=== PATIENT | female | born 1975 | race Two or more races ===

== ENCOUNTER 2024-09-19 12:48 | Emergency (ER) | payer BC, SELFPAY ==
[2024-09-19] VITALS (9 sets, daily range): BP systolic 150–200; BP diastolic 84–112; PULSE 62–92; RESP 16–20; TEMP 36.3–37.1; O2SAT 93–99; BMI 32.4
--- NOTE | 2024-09-19 12:55 | EKG_ITS ---
[facility] Test Date: 2024-09-19 Pat Name: GIOVANNI HERRERA Department: Room: - Gender: Female [employer] Person: : 1975 Requested By: Nils Chery Order Number: [id number] Reading MD: Nils Chery Measurements Intervals [place] Rate: 71 P: 57 AL: 149 QRS: 7 QRSD: 86 T: 46 QT: 389 QTc: 424 Interpretive Statements SINUS RHYTHM Compared to ECG 10/24/2021 08:09:13 No significant changes /store/S0/[id number].pdf
--- NOTE | 2024-09-19 13:01 | PD.EDRME ---
Rapid Medical Screening Exam RME Arrival date/time: 09/19/24 12:48 49-year-old female with a history of hyperlipidemia, hypertension was sent to the emergency room by the primary care provider for an elevated blood pressure reading while also having dizziness, palpitations, and a headache I have greeted and performed a focused initial assessment of this patient. A comprehensive ED assessment and evaluation of the patient, analysis of all test results, and completion of the medical decision making process will be conducted by additional ED providers. Chief Complaint: Dizziness Time Seen by Provider: 09/19/24 12:57 Vital signs: Vital Signs Temperature 98.6 F 09/19/24 12:56 Pulse Rate 75 09/19/24 12:56 Respiratory Rate 18 09/19/24 12:56 Blood Pressure 194/112 H 09/19/24 12:56 Pulse Oximetry (%) 96 09/19/24 12:56 Oxygen Delivery Method Room Air 09/19/24 12:56 Vital signs reviewed by provider: Yes
[2024-09-19 13:39] LABS: Basophils # (Auto) 0.1 Thou/mm3 (0.0-0.2); Basophils % (Auto) 1 % (0-2.5); Eosinophils # (Auto) 0.2 Thou/mm3 (0.0-0.5); Eosinophils % (Auto) 2 % (0-10); Hemoglobin 14.7 g/dL (12.0-16.0); Immature Granulocytes Auto 0.04 Thou/mm3 (0.00-0.00); Lymphocytes # (Auto) 2.3 Thou/mm3 (1.0-4.8); Lymphocytes % (Auto) 20 % (10-50); Mean Corpuscular Hemoglobin 30.2 pg (25.0-35.0); Monocytes # (Auto) 0.6 Thou/mm3 (0.0-0.8); Monocytes % (Auto) 5 % (0-12); Neutrophils # (Auto) 8.4 Thou/mm3 (1.8-7.7); Neutrophils % (Auto) 73 % (37-80); Nucleated Red Blood Cell # 0.00 Thou/mm3 (0.00-0.00); Nucleated Red Blood Cell % 0 /100 WBC (0); Platelet Count 295 Thou/mm3 (140-440); RDW Standard Deviation 39.0 fL (36.4-46.3); White Blood Count 11.6 Thou/mm3 (3.6-11.0)
[2024-09-19 14:18] LABS: B-Type Natriuretic Peptide 43 pg/mL (0-100); Hematocrit 39.6 % (36.0-46.0); Mean Corpuscular HGB Conc 32.8 g/dl (31.0-37.0); Mean Corpuscular Volume 78 fL (80-100); Red Blood Count 5.09 Miln/mm3 (4.00-5.20)
[2024-09-19 14:24] LABS: Alanine Aminotransferase 21 U/L (10-49); Albumin, Serum 4.6 gm/dL (3.5-5.0); Albumin/Globulin Ratio 1.6 (1.2-2.2); Alkaline Phosphatase 81 U/L (46-116); Anion Gap 23 (7-16); Aspartate Amino Transferase 31 U/L (0-34); BUN/Creatinine Ratio 15 Ratio (12-20); Bilirubin,Total 0.2 mg/dL (0.3-1.2); Blood Urea Nitrogen 12 mg/dL (9-23); Calcium 9.2 mg/dL (8.3-10.6); Calcium (Corrected) 9.2 mg/dL (8.5-10.1); Chloride 102 mMol/L (98-107); Creatinine (Component) 0.8 mg/dL (0.6-1.3); Estimated Creatinine Clearance 92.4 mL/min (>60); Globulin 2.8 gm/dL (2.3-3.5); Glucose 94 mg/dL (74-106); Osmolality,Calculated 269 (275-295); Potassium 4.2 mMol/L (3.4-5.1); Sodium 135 mMol/L (136-145); Total Protein 7.4 gm/dL (5.7-8.2); Troponin I < 0.002 ng/mL (0.0-0.045); eGFR > 60 See Note
[2024-09-19 14:25] LABS: Carbon Dioxide < 10.0 mMol/L (20.0-31.0)
[2024-09-19 15:12] LABS: Collection Type, Urine Clean Catch
[2024-09-19 15:27] LABS: Bilirubin,Urine Negative (Negative); Blood,Urine Negative (Negative); Clarity,Urine Clear (Clear/Hazy); Color,Urine Colorless (Lt Yel-Yel); Glucose, Urine Negative (Negative); Ketones,Urine Negative (Negative); Leukocyte Esterase,Urine Negative (Negative); Nitrite,Urine Negative (Negative); PH,Urine 6.5 (5.0-7.0); Protein,Urine Negative (Neg - Trace); RBC,Urine 1 /hpf (0-3); Specific Gravity,Urine 1.007 (1.001-1.035); Squamous Epithelial Cell,Urine 1 /hpf (0-5); Urobilinogen,Urine Negative mg/dL (0.0-1.0); WBC,Urine 1 /hpf (0-5)
--- NOTE | 2024-09-19 15:44 | PD.EDADULT ---
ED General RME/HPI General Chief complaint: Dizziness Stated complaint: Dr. Newman sent pt. BP 215/114 Time Seen by Provider: 09/19/24 12:57 Arrival date/time: 09/19/24 12:48 CC: Dizziness headache tingling in her fingers HPI ongoing intermittently for the past month. Patient was seen by PCP today referred to the emergency room with an elevated blood pressure. Upon initial arrival her blood pressure was 194/112. Prior to examination patient was given hydralazine at which time patient's pressure decreased to 179/94. Patient currently has a headache but is improved. And continues to have tingling in her hands. Patient denies chest pain shortness of breath ankle swelling or difficulty breathing. No other complaints at this time Limitations: no limitations RME / HPI RME / HPI narrative: 09/19/24 12:48 49-year-old female with a history of hyperlipidemia, hypertension was sent to the emergency room by the primary care provider for an elevated blood pressure reading while also having dizziness, palpitations, and a headache I have greeted and performed a focused initial assessment of this patient. A comprehensive ED assessment and evaluation of the patient, analysis of all test results, and completion of the medical decision making process will be conducted by additional ED providers. Related Data Previous Rx's ?Medication ?Instructions ?Recorded gemfibrozil 600 mg tablet 600 mg PO BID #0 tabs 12/18/19 atorvastatin 20 mg tablet 80 mg (4 x 20 mg) PO HS #30 tabs 01/13/22 carvedilol 3.125 mg tablet 3.125 mg PO BID #60 tabs 01/13/22 Allergies Allergy/AdvReac Type Severity Reaction Status Date / Time No Known Allergies Allergy Verified 09/19/24 12:51 Review of Systems Review of Systems Narrative Review of Systems: GEN: No fever, no chills, no weight loss EYES: No discharge, no visual changes, no pain HEENT: No ear pain, no congestion, no sore throat PULM: No shortness of breath, no cough, no congestion CV: No chest pain, no dyspnea on exertion, no palpitations GI: No nausea, no vomiting, no diarrhea, no pain, no constipation : No frequency, no urgency, no dysuria MUSC/SKEL: No joint pain, no back pain SKIN: No rash PSYCH: No hallucinations, no depression HEME/LYMPH: No easy bleeding or bruising tendencies NEURO: No weakness, no headache Past Medical History Past Medical History NEUROLOGIC: Negative Neurological Disorders or Seizures CARDIAC: Positive Hypercholesterolemia and Hypertension; Negative Cardiac Disorders or Congestive Heart Failure RESPIRATORY: Negative Chronic Obstructive Pulmonary Disease (COPD) or Asthma GASTROINTESTINAL: Positive Gastrointestinal Disorders and Pancreatitis GENITOURINARY: Negative Genitourinary Disorders or Renal Disease REPRODUCTIVE: Negative Pelvic Inflammatory Disease MUSCULOSKELETAL: Negative Musculoskeletal Disorders ENDOCRINE: Negative Diabetes Mellitus Type 1 or Diabetes Mellitus Type 2 HEMATOLOGIC: Negative Blood Disorders or Sickle Cell Disease OTHER HISTORY: Positive Blood Transfusions; Negative Autoimmune Disease, Blood Transfusion Reaction or Anesthesia Reactions Family History FAMILY HISTORY: Positive Family Surgery; Negative Family Cardiac Disorders, Family Cancer or Family Anesthesia Reaction Social History SMOKING STATUS: Never smoker SUBSTANCE USE: does not use ED Exam Narrative Physical exam: [General: Obese not in any acute distress Head normocephalic HEENT: Eyes pupils are PERRLA EOMs are intact mouth pink moist membranes uvula is midline swallow symmetrical phonation is normal. Within acceptable limits Neck is supple nontender Chest equal chest rise nontender to palpation Respiratory: Clear to auscultation no wheezes crackles or rubs CV: Rate rhythm is regular no murmurs rubs or clicks Abdomen is distended secondary to body habitus soft nontender no masses positive bowel sounds all 4 quadrants Back: No CVA tenderness no spinous process tenderness from cervical spine thoracic and lumbar spine Skin: Intact no petechiae rash induration ulceration or crepitus Extremities: Moving all extremity against resistance cap refill less than 2 seconds neurosensory intact. No lower extremity edema Neuro: Awake alert oriented x3 Glascow coma 15 no focal deficits] General Limitations: Present no limitations Head Head exam: Present atraumatic Course Quality Measures none Orders Category Date Time Status EKG (ED ONLY) *Do not use* NOW Care 09/19/24 12:55 Completed EKG (ED Only) Stat Exams 09/19/24 12:55 Draft B-Type Natriuretic Peptide Stat Lab 09/19/24 13:17 Completed CBC Stat Lab 09/19/24 13:17 Completed Comprehensive Metabolic Panel Stat Lab 09/19/24 13:17 Completed Troponin I Stat Lab 09/19/24 13:17 Completed Urinalysis Stat Lab 09/19/24 14:46 Completed VBG [Venous Blood Gas] Stat Lab 09/19/24 16:42 Completed cloNIDine HCL [Catapres] Med 09/19/24 13:00 Discontinued 0.1 mg PO X1 ONE cloNIDine HCL [Catapres] Med 09/19/24 15:48 Discontinued 0.1 mg PO X1 ONE Vital Signs Vital signs: Vital Signs Temperature 98.6 F 09/19/24 12:56 Pulse Rate 75 09/19/24 12:56 Respiratory Rate 18 09/19/24 12:56 Blood Pressure 194/112 H 09/19/24 12:56 Pulse Oximetry (%) 96 09/19/24 12:56 Oxygen Delivery Method Room Air 09/19/24 12:56 Discharge Plan Plan Patient Disposition: HOME (Self Care) Patient condition on transfer: Stable Prescriptions/Referrals Prescriptions/Med Rec: No Action gemfibrozil 600 mg tablet 600 mg PO BID Qty: 0 0RF atorvastatin 20 mg Tablet 80 mg PO HS Qty: 30 0RF carvedilol 3.125 mg Tablet 3.125 mg PO BID Qty: 60 0RF Referrals: Stevie Newman MD ([email or web address]) [Primary Care Provider] - In 1 week Problem List Clinical Impression: Hypertension Patient/Caregiver Discharge Instructions Other Activity Instructions:: Take all your medications up promptly, take them as prescribed follow-up promptly with your primary care provider. Education Materials: Controlling High Blood Pressure Print Language: Telugu Stand Alone Forms: Karen Award Info., Work/School Release, Patient Portal Info Letter PA/LOW PRESSURE FIRER Supervising Physician PA/LOW PRESSURE FIRER Supervising Physician: Gregory Hunt ENP, MD Attestation MD Attestation The patient was seen by the midlevel practitioner. I, the co-signing physician, was present during the entire ER visit. While I did not physically examine the patient, I was available for consultation as needed. I agree with the plan and documentation. MDM Clinical Information Provided by patient Medical Records Reviewed [facility] Meds/Rx Considered, not Ordered None Labs/Rad/Tests considered, not Ordered None Chronic Illness/Social Conditions Add or document further as needed: Hypertension EKG EKG Interpretation narrative: EKG performed at 1300 shows a ventricular rate of 71 [place] interval 149 QRS of 86 QTc of 412 normal sinus rhythm. Lab Interpretation Lab(s) interpretation(s): CBC shows a mild leukocytosis of 11.6 no anemia thrombocytopenia CMP shows sodium 135 potassium of 4.2 chloride of 102 CO2 of less than 10 gap of 23 BUN of 12 creatinine of 0.8 no other transaminitis or T. bili elevation Troponin and BNP within acceptable limits Imaging Radiology reports / interpretation(s): After 2.1 clonidine tablets, blood pressure is decreased to 168/84, headache has decreased to head pressure. Tingling still remains in the fingertips patient is awake alert oriented. Medication Administration(s) Medication Administration History Discontinued Medications Clonidine (Clonidine Hcl 0.1 Mg Tablet) 0.1 mg PO X1 ONE Stop: 09/19/24 13:01 Last Admin: 09/19/24 13:04 Dose: 0.1 mg Documented By: Clonidine (Clonidine Hcl 0.1 Mg Tablet) 0.1 mg PO X1 ONE Stop: 09/19/24 15:49 Last Admin: 09/19/24 16:07 Dose: 0.1 mg Documented By: GM Discussed patient's conditions findings and vital signs with Dr. Newman who is comfortable discharging her home as she is already reordered all of her medications to picker operator. Note patient did not tell me but informed Dr Newman that she has been out of her antihypertensive medicines for 1 month.
[2024-09-19 16:49] LABS: Base Excess, Venous 1 (-3-3); O2 Saturation, Venous 67 % (96-97); PCO2, Venous 44 mmHg (36-56); PO2, Venous 36 mmHg (15-58); pH, Venous 7.38 (7.33-7.66)
== END 2024-09-19 19:24 | disposition home or self-care (01) ==
PROVIDERS: Nurse Practitioner Family; Emergency Provider Family Medicine; PCP Internal Medicine
DX: I10 Essential (primary) hypertension (principal); D72.829 Elevated white blood cell count, unspecified; E11.9 Type 2 diabetes mellitus without complications; E78.00 Pure hypercholesterolemia, unspecified; Z79.899 Other long term (current) drug therapy
CPT/HCPCS: 36415; 80053; 81001; 82803; 83880; 84484; 85025; 93005; 99283; A9270

== ENCOUNTER 2024-09-20 06:45 | Inpatient (IN) | payer BC, SELFPAY ==
[2024-09-20] VITALS (9 sets, daily range): BP systolic 142–229; BP diastolic 89–146; PULSE 68–101; RESP 17–95; TEMP 36.2–36.6; O2SAT 95–98; BMI 31.6
[2024-09-20] MEDS: ONDANSETRON INJ 2 MG/ML INJ 2 ML 4 MG IV (07:43)
--- NOTE | 2024-09-20 07:45 | PD.EDABDPN ---
ED Abdominal Pain RME/HPI General Chief Complaint: Abdominal Pain Stated complaint: ABD PAIN,N/V, HIGH BP Time seen by provider: 09/20/24 07:41 Arrival date/time: 09/20/24 06:45 RME / HPI RME / HPI narrative: 49 year old female with history of hypertension and recurring pancreatitis(last admitted here 12/16-01/13/2022) presents to the ED for evaluation of abdominal pain beginning at 05:30 AM today and remaining constant since. Described as burning in sensation that is located most to the mid abdomen, rating as severe. Accompanied by nausea and multiple episodes of vomiting. Reports her symptoms today are similar to previous episodes of pancreatitis. Denies fevers, chills, chest pain, cough, shortness of breath, diarrhea, or urinary symptoms. Patient additionally reports she was sent here by her PCP yesterday for blood pressure control. Evidently ran out of her hypertensive medications 1 month ago and was unable to get in to see her PCP until yesterday. Denied any abdominal pain yesterday. Related Data Previous Rx's ?Medication ?Instructions ?Recorded gemfibrozil 600 mg tablet 600 mg PO BID #0 tabs 12/18/19 atorvastatin 20 mg tablet 80 mg (4 x 20 mg) PO HS #30 tabs 01/13/22 carvedilol 3.125 mg tablet 3.125 mg PO BID #60 tabs 01/13/22 Allergies Allergy/AdvReac Type Severity Reaction Status Date / Time No Known Allergies Allergy Verified 09/20/24 06:45 Review of Systems Review of Systems Systems Reviewed: All systems reviewed, normal except as documented Past Medical History Past Medical History CARDIAC: Positive Hypercholesterolemia and Hypertension GASTROINTESTINAL: Positive Gastrointestinal Disorders and Pancreatitis OTHER HISTORY: Positive Blood Transfusions Family History FAMILY HISTORY: Positive Family Surgery Social History SMOKING STATUS: Never smoker SUBSTANCE USE: does not use ED Exam Narrative Physical exam: Constitutional: Awake, alert, appears uncomfortable and is actively vomiting during exam, obese HEENT: NC, AT, EOMI Neck: Supple CV: RRR, no m/r/g Lungs: CTAB, no w/r/r, no respiratory distress. Abd: Soft, tenderness to the upper abdomen, no rebound, no guarding, no HSM noted to palpation Extremities: No deformities, no edema noted Neuro: AAOx3, CN 2-12 GIBL, no acute neuro deficit noted. Skin: Cool and damp, intact Course Course Course Narrative: The patient has history of pancreatitis in the past and was here yesterday for uncontrolled hypertension. Appears to have been given medications and had labs yesterday showing CO2 <10 concerning for acidosis. Ordered VBG and repeat labs today. 1040h: Lipase noted to be significantly elevated. Phosphorus a bit low and magnesium level low as well. CT abdomen pelvis ordered and pending. Will require admission. Will discuss with hospitalist team. Notified by hospitalist team patient is Dr. Newman's patient, will consult with her for admission. 1140h: I spoke with Dr. Newman and she accepts the patient for admission. Quality Measures none Orders Category Date Time Status COVID-19 Screening Questionnaire NOW Care 09/20/24 11:[address] Screening NOW Care 09/20/24 10:41 Active Decision to Admit X1 Care 09/20/24 11:05 Completed Insert IV NOW Care 09/20/24 07:36 Active May take PO meds w/sips of H2O NEEDED Care 09/20/24 11:37 Active NPO NOW Care 09/20/24 07:36 Active NPO NOW Care 09/20/24 11:37 Active Diet NPO (NOW) Diet 09/20/24 11:[address] abdomen pelvis w con Stat Exams 09/20/24 10:41 Ordered US gall bladder Stat Exams 09/20/24 11:05 Ordered CBC Stat Lab 09/20/24 07:49 Completed CRP [C-Reactive Protein] Stat Lab 09/20/24 07:49 Completed Comprehensive Metabolic Panel Stat Lab 09/20/24 07:49 Completed HCG Qualitative,Urine Stat Lab 09/20/24 11:50 Completed Lactic Acid [Lactate (Lactic Acid)] Stat Lab 09/20/24 08:13 Completed Lipase Stat Lab 09/20/24 07:49 Completed Magnesium Stat Lab 09/20/24 07:49 Completed Phosphorous Stat Lab 09/20/24 07:49 Completed UA, C/S IF [Urinalysis, C/S if Indicated] Stat Lab 09/20/24 11:50 Completed VBG [Venous Blood Gas] Stat Lab 09/20/24 08:13 Completed Acetaminophen Ivpb [Ofirmev Inj] Med 09/20/24 11:45 Active 1,000 mg in 100 ml IV Q6H HYDROmorphone INJ [Dilaudid Inj] Med 09/20/24 07:50 Discontinued 0.5 mg IVP X1 ONE HYDROmorphone INJ [Dilaudid Inj] Med 09/20/24 08:14 Discontinued 1 mg IVP X1 ONE HYDROmorphone INJ [Dilaudid Inj] Med 09/20/24 11:30 Discontinued 1 mg IVP X1 ONE Ketorolac Inj [Toradol Inj] Med 09/20/24 08:14 Discontinued 30 mg IVP X1 ONE Morphine Inj Med 09/20/24 07:45 Discontinued 4 mg IVP X1 ONE Ondansetron Inj [Zofran Inj] Med 09/20/24 07:35 Discontinued 4 mg IV X1 ONE Prochlorperazine Inj [Compazine Inj] Med 09/20/24 07:45 Discontinued 10 mg IM X1 ONE Prochlorperazine Inj [Compazine Inj] Med 09/20/24 08:14 Discontinued 10 mg IM X1 ONE Promethazine Inj [Phenergan Inj] 25 mg Med 09/20/24 08:14 Discontinued Sodium Chloride 0.9% [Ns] 50 ml IV X1 Promethazine Inj [Phenergan Inj] 25 mg Med 09/20/24 11:36 Discontinued Sodium Chloride 0.9% [Ns] 50 ml IV X1 Sodium Chloride 0.9% 1000 ml [Ns] 1,000 ml Med 09/20/24 07:47 Discontinued IV 125 mls/hr hydrALAZINE INJ [Apresoline Inj] Med 09/20/24 07:46 Discontinued 20 mg IVP X1 ONE Vital Signs Vital signs: Vital Signs Temperature 97.9 F 09/20/24 06:45 Pulse Rate 85 09/20/24 06:45 Respiratory Rate 17 09/20/24 06:45 Blood Pressure 207/114 H 09/20/24 06:45 Pulse Oximetry (%) 98 09/20/24 06:45 Oxygen Delivery Method Room Air 09/20/24 06:45 Pulse ox is 98% on room air which is adequate. Abdominal Pain MDM MDM Narrative MDM Narrative:: Serena Calderón am scribing for and in the presence of Dr. Pike. Patient data External records reviewed:: [facility] previous records (I reviewed admission from 12/16/2021 through 01/13/2022 for acute pancreatitis ) Clinical information provided by:: patient Social determinants that could affect healthcare access:: none Patient has the following chronic illnesses:: hypertension and recurring pancreatitis(last admitted here 12/16-01/13/2022) How is presenting disease/condition affected by chronic disease/condition?: exacerbated by Evaluation data The following diagnostics were reviewed and interpreted by me:: lab results Lab and/or radiology exams considered but not ordered:: None Interpretation Summary: Elevated lipase at 2,076. Medications / Prescriptions Medications or Prescriptions considered but not ordered:: None Medication administrations:: Medication Administration History Heparin Sodium (Porcine) (Heparin Sod Inj 5000 Unit/Ml Vial) 5,000 unit SC Q12HR RAHDA Stop: 10/04/24 20:59 Hydralazine HCl (Hydralazine Inj 20 Mg/Ml Vial) 10 mg IVP Q6HR PRN PRN Reason: SBP>180 Stop: 10/20/24 11:53 Hydromorphone HCl (Hydromorphone Inj 2 Mg/Ml Vial) 1 mg IVP Q4HR PRN PRN Reason: third line for pain, 7-10 Stop: 09/25/24 11:49 Acetaminophen (Ofirmev Inj) 1,000 mg in 100 mls @ 250 mls/hr IV Q6H RADHA Stop: 09/21/24 06:08 Last Admin: 09/20/24 12:06 Dose: 250 mls/hr Documented By: VG Lactated Ringer's (Lactated Ringers) 1,000 mls @ 100 mls/hr IV .Q10H RADHA Stop: 10/20/24 11:44 Last Admin: 09/20/24 12:10 Dose: 100 mls/hr Documented By: VG Morphine Sulfate (Morphine Sulf Inj 10 Mg/Ml Vial) 4 mg IVP Q6H PRN PRN Reason: second line for pain 7-10 Ondansetron HCl (Ondansetron Inj 2 Mg/Ml Inj 2 Ml) 6 mg IVP Q6H PRN; Protocol PRN Reason: NAUSEA OR VOMITING Stop: 10/20/24 11:37 Discontinued Medications Hydralazine HCl (Hydralazine Inj 20 Mg/Ml Vial) 20 mg IVP X1 ONE Stop: 09/20/24 07:47 Last Admin: 09/20/24 07:57 Dose: 20 mg Documented By: VL Hydromorphone HCl (Hydromorphone Inj 2 Mg/Ml Vial) 0.5 mg IVP X1 ONE Stop: 09/20/24 07:51 Last Admin: 09/20/24 07:58 Dose: 0.5 mg Documented By: PARI Hydromorphone HCl (Hydromorphone Inj 2 Mg/Ml Vial) 1 mg IVP X1 ONE Stop: 09/20/24 08:15 Last Admin: 09/20/24 08:23 Dose: 1 mg Documented By: PARI Hydromorphone HCl (Hydromorphone Inj 2 Mg/Ml Vial) 1 mg IVP X1 ONE Stop: 09/20/24 11:31 Last Admin: 09/20/24 11:35 Dose: 1 mg Documented By: MELONY Sodium Chloride (Ns) 1,000 mls @ 125 mls/hr IV .Q8H ONE Stop: 09/20/24 15:46 Last Admin: 09/20/24 08:03 Dose: 125 mls/hr Documented By: PARI Promethazine HCl 25 mg/ Sodium (Chloride) 51 mls @ 2.5 mls/min IV X1 ONE Stop: 09/20/24 08:34 Last Infusion: 09/20/24 09:20 Dose: Infused Documented By: Admin: 09/20/24 08:53 Dose: 2.5 mls/min Documented By: PARI Promethazine HCl 25 mg/ Sodium (Chloride) 51 mls @ 2.5 mls/min IV X1 ONE Stop: 09/20/24 11:56 Last Infusion: 09/20/24 12:42 Dose: Infused Documented By: Admin: 09/20/24 11:58 Dose: 2.5 mls/min Documented By: MELONY Ketorolac Tromethamine (Ketorolac Inj 30 Mg/Ml Vial) 30 mg IVP X1 ONE Stop: 09/20/24 08:15 Last Admin: 09/20/24 08:23 Dose: 30 mg Documented By: PARI Morphine Sulfate (Morphine Sulf Inj 10 Mg/Ml Vial) 4 mg IVP X1 ONE Stop: 09/20/24 07:46 Last Admin: 09/20/24 07:51 Dose: Not Given Documented By: PARI Non-Admin Reason: Discontinued Ondansetron HCl (Ondansetron Inj 2 Mg/Ml Inj 2 Ml) 4 mg IV X1 ONE Stop: 09/20/24 07:36 Last Admin: 09/20/24 07:43 Dose: 4 mg Documented By: PARI Prochlorperazine Edisylate (Prochlorperazine Inj 5 Mg/Ml Vial 2 Ml) 10 mg IM X1 ONE; Protocol Stop: 09/20/24 07:46 Last Admin: 09/20/24 08:23 Dose: 10 mg Documented By: PARI Prochlorperazine Edisylate (Prochlorperazine Inj 5 Mg/Ml Vial 2 Ml) 10 mg IM X1 ONE; Protocol Stop: 09/20/24 08:15 Last Admin: 09/20/24 08:53 Dose: Not Given Documented By: PARI Non-Admin Reason: Duplicate Medication on eMAR See above Consultations Consultation(s) initiated? (list below): Yes Diagnosis Differential diagnosis abdominal pain: abdominal pain, calculus of kidney, gastroenteritis and pancreatitis Most likely diagnosis given after review of the tests above:: Pancreatitis Admission Indicated Admission indicated?: indicated Admission Request Was there a request for admission?: Yes Admission Attestation Admission request attestation: Discussed case with [] from Hospitalist service regarding admission. Discussed patients ED course, exam findings, labs, and radiology results. The Hospitalist [agrees,declines] to accept the patient for admission. Disposition Plan Disposition Plan: Admit Discharge Plan Plan Patient Disposition: Admit Acute Care w/in Hospital Problem List Clinical Impression: Pancreatitis
[2024-09-20] MEDS: hydrALAZINE INJ 20 MG/ML VIAL IVP (07:57)
[2024-09-20] MEDS: HYDROmorphone INJ 2 MG/ML VIAL 0.5 MG IVP (07:58)
[2024-09-20 08:01] LABS: Basophils # (Auto) 0.1 Thou/mm3 (0.0-0.2); Basophils % (Auto) 1 % (0-2.5); Eosinophils # (Auto) 0.1 Thou/mm3 (0.0-0.5); Eosinophils % (Auto) 1 % (0-10); Hematocrit 38.9 % (36.0-46.0); Hemoglobin 14.4 g/dL (12.0-16.0); Immature Granulocytes Auto 0.05 Thou/mm3 (0.00-0.00); Lymphocytes # (Auto) 2.1 Thou/mm3 (1.0-4.8); Lymphocytes % (Auto) 15 % (10-50); Mean Corpuscular HGB Conc 37.0 g/dl (31.0-37.0); Mean Corpuscular Hemoglobin 28.3 pg (25.0-35.0); Mean Corpuscular Volume 76 fL (80-100); Monocytes # (Auto) 0.7 Thou/mm3 (0.0-0.8); Monocytes % (Auto) 5 % (0-12); Neutrophils # (Auto) 11.1 Thou/mm3 (1.8-7.7); Neutrophils % (Auto) 78 % (37-80); Nucleated Red Blood Cell # 0.00 Thou/mm3 (0.00-0.00); Nucleated Red Blood Cell % 0 /100 WBC (0); Platelet Count 323 Thou/mm3 (140-440); RDW Standard Deviation 39.7 fL (36.4-46.3); Red Blood Count 5.09 Miln/mm3 (4.00-5.20); White Blood Count 14.2 Thou/mm3 (3.6-11.0)
[2024-09-20] MEDS: SODIUM CHLORIDE 0.9% 1000 ML 1,000 ML 125 ML IV (08:03)
[2024-09-20 08:16] LABS: Base Excess, Venous -1 (-3-3); O2 Saturation, Venous 99 % (96-97); PCO2, Venous 25 mmHg (36-56); PO2, Venous 144 mmHg (15-58); pH, Venous 7.52 (7.33-7.66)
[2024-09-20 08:18] LABS: Lactate (Lactic Acid) 0.9 mMol/L (0.4-2.0)
[2024-09-20] MEDS: KETOROLAC INJ 30 MG/ML VIAL IVP (08:23)
[2024-09-20] MEDS: PROCHLORPERAZINE INJ 5 MG/ML VIAL 2 ML 10 MG IM (08:23)
[2024-09-20] MEDS: HYDROmorphone INJ 2 MG/ML VIAL 1 MG IVP ×3 (08:23→14:55)
[2024-09-20 08:41] LABS: Alanine Aminotransferase 23 U/L (10-49); Albumin, Serum 4.6 gm/dL (3.5-5.0); Albumin/Globulin Ratio 1.6 (1.2-2.2); Alkaline Phosphatase 80 U/L (46-116); Anion Gap 15 (7-16); Aspartate Amino Transferase 29 U/L (0-34); BUN/Creatinine Ratio 19 Ratio (12-20); Bilirubin,Total 0.3 mg/dL (0.3-1.2); Blood Urea Nitrogen 15 mg/dL (9-23); C-Reactive Protein 1.7 mg/dL (0.0-0.9); Calcium 9.0 mg/dL (8.3-10.6); Calcium (Corrected) 9.0 mg/dL (8.5-10.1); Carbon Dioxide 17.7 mMol/L (20.0-31.0); Chloride 105 mMol/L (98-107); Creatinine (Component) 0.8 mg/dL (0.6-1.3); Estimated Creatinine Clearance 91.2 mL/min (>60); Globulin 2.9 gm/dL (2.3-3.5); Glucose 143 mg/dL (74-106); Magnesium 1.5 mg/dL (1.6-2.6); Osmolality,Calculated 278 (275-295); Phosphorous 1.8 mg/dL (2.4-5.1); Potassium 3.7 mMol/L (3.4-5.1); Sodium 138 mMol/L (136-145); Total Protein 7.5 gm/dL (5.7-8.2); eGFR > 60 See Note
[2024-09-20] MEDS: PROMETHAZINE INJ 25 MG in SODIUM CHLORIDE 0.9% 50 ML IV ×2 (08:53→11:58)
[2024-09-20 09:23] LABS: Lipase 2076 U/L (12-53)
--- NOTE | 2024-09-20 10:41 | XR_ITS ---
Examination: CT abdomen with intravenous contrast CT pelvis with intravenous contrast 2-D coronal reconstructions 2-D sagittal reconstructions Date and time of exam:September 20, 2024 1328 hours Comparison April 01, 2022 INDICATIONS: Severe abdominal pain today, elevated lipase on laboratory examination today. CTDI: vol (mGy) 9.57 DLP: (mGycm) 570 Technique: Multiple axial sections of the abdomen and pelvis have been obtained. 64 slice high-resolution scanner used. 3 mm axial sections have been obtained, post intravenous injection 60 cc [id number] 2-D sagittal, coronal reconstructions obtained. Low dose protocols were performed. One or more of the following dose reduction techniques were used; automated exposure control, adjustment of the mA and/or KV according to patient size, use of iterative reconstruction technique. Findings: Diffuse fatty infiltration throughout the liver Absent gallbladder Severe acute pancreatitis, extensive edema and fluid surrounding the pancreas extending into the abdomen No hydronephrosis Extensive necrosis involving the pancreas Aorta not enlarged No bowel obstruction No diverticulitis Left pelvic 4.2 cm cyst Retroverted uterus with intrauterine device satisfactory position Intact osseous structures IMPRESSION: Severe acute pancreatitis, extensive edema and fluid surrounding the pancreas extending into the abdomen Extensive necrosis involving the pancreas
--- NOTE | 2024-09-20 11:05 | XR_ITS ---
Examination: Abdomen sonogram, Limited Date and time of exam: September 20, 2024 1219 hours INDICATIONS: Onset right upper abdominal pain and nausea beginning today. Technique: Real-time west scale transabdominal sonographic images of the upper abdomen obtained. Findings: Absent gallbladder Common bile duct 0.8 cm no stones Pancreatic head 3.0 cm Liver 14.5 cm fatty infiltration 11 mm left lobe liver lesion Normal hepatopedal portal venous flow Patent IVC IMPRESSION: Enlarged common bile duct 0.8 cm 11 mm left lobe liver lesion Consider MRCP, MRI abdomen without contrast follow-up to exclude obstruction or stones in the common bile duct and to further assess the liver lesion
--- NOTE | 2024-09-20 11:26 | ESHP_ITS ---
Documentation for date of: 09/20/24 HPI History of Present Illness Chief complaint: pancreatitis History of present illness: Ms Chapin is a 49 yo woman with uncontrolled HTN, who was seen 09/19 in the ED sent by PCP (Dr. Newman) for SBP 200 with symptoms of headache and vision changes. clonidine was given while in the ED, and pt was discharged and instructed to rock picker antihtn meds PCP had refilled to the pharmacy. pt reported that she was working till 7 PM yesterday and was unable to rock picker the medications. pt presented the ED today for epigastric pain that radiates to the right side and to the back. she states that she woke up this morning at 0500 to pain of her stomach. She states that the pain was similar to a prior episode of pancreatitis that prompted her to come to the hospital. she endorses bilious emesis, nausea and pain. pt states that she ate some rice and vegetables yesterday for dinner, and had a light colored BM. pt follows with Dr. Newman, has not been taking medications, she states that she has run out of medications. I personally saw patient in clinic yesterda ROS Pt denies chest pain, no diarrhea, no constipation, no dysuria, no cough ED Course: Dx - Labs notable for wbc 14.2, LDH 265, CRP , Triglycerides 3900, Cholesterol 572, Amylase 1202, Lipase 1202 from 2075, UA bland - CTAP: severe pancreatitis with necrosis Diffuse fatty infiltration throughout the liver - GB US; Enlarged common bile duct 0.8 cm, 11 mm left lobe liver lesion, consider MRCP Tx - BP * Hydralizine 20mg IV - Nausea/vomiting * Ondansetron * prochlorperazine 10 mg IM * promethazine 25 mg IV @0800 * promethazine 25 mg IV @1200 * - Pain * Keterolac 30 IVP 1x * hydromorphone 1mg IVP x2 * start IV APAP - Fluids * NS 125 ml/hr Patient seen and examined with resident physician Dr. Sterling. Note reviewed, agree with findings and recommendations. Consulted Dr. Joyner for severe necrotizing pancreatitis. Will monitor very closely. She had similar episode in 2021. Depending on clinical condition and labs will plan for transfer to higher level of care if needed. Triglycerides 3900. Patient stopped atorvastatin for more than a month. Blood pressure was high and was in ER yesterday. Will resume blood pressure medication. Prognosis guarded. Exam Vital Signs Temp Pulse Resp BP Pulse Ox O2 Del Method 97.9 F 76 25 H 183/96 H 97 Room Air 09/20/24 06:45 09/20/24 08:57 09/20/24 08:57 09/20/24 08:57 09/20/24 08:57 09/20/24 08:57 Narrative Exam GENERAL: pt in acute distress 2/2 pain, AAO x3, sitting at side of bed with vomiting bag. HEENT: Head AT/ NC. Mucous membranes dry. PERRL. CARDIOVASCULAR: RRR. Normal S1/S2, No m/r/g. No pitting edema of bilateral LEs. RESPIRATORY: CTAB. No wheezing, rhonchi, crackles. GASTROINTESTINAL: Abdomen soft, tender to palpation in the epigastrum no palpable masses. Bowel sounds present. intermittently heaving and with bilious non bloody emesis MUSCULOSKELETAL:? No cyanosis or edema, no visible joint swelling. NEUROLOGICAL: CN II-XII grossly intact. No focal deficits. Sensation intact, symmetric. SKIN: pale skin. Results: Labs 09/20/24 07:49 09/20/24 07:49 Labs: Short CBC 09/20/24 Range/Units 07:49 WBC 14.2 H (3.6-11.0) Thou/mm3 Hgb 14.4 (12.0-16.0) g/dL Hct 38.9 (36.0-46.0) % Plt Count 323 (140-440) Thou/mm3 BMP 09/20/24 07:49 Sodium 138 Potassium 3.7 D Chloride 105 Carbon Dioxide 17.7 L BUN 15 Creatinine 0.8 Glucose 143 H D Calcium 9.0 Liver Function 09/20/24 Range/Units 07:49 Total Bilirubin 0.3 (0.3-1.2) mg/dL AST 29 (0-34) U/L ALT 23 (10-49) U/L Alkaline Phosphatase 80 (46-116) U/L Albumin 4.6 (3.5-5.0) gm/dL ABG Interpretation ABG results: 09/20/24 08:13 VBG pH 7.52 VBG pCO2 25 L D VBG pO2 144 H D VBG Base Excess -1 Quality Measures Quality Measures none Medications Home Medications and Allergies Home Medications ?Medication ?Instructions ?Recorded ?Confirmed ?Type atorvastatin 80 mg tablet 80 mg PO HS 09/20/24 5 History losartan 100 1 tab PO QDAY 09/20/2409/20 History mg-hydrochlorothiazide 25 mg tablet Allergies Allergy/AdvReac Type Severity Reaction Status Date / Time No Known Allergies Allergy Verified 09/20/24 06:45 Visit Medications Sodium Chloride (Ns) 1,000 mls @ 125 mls/hr IV .Q8H ONE Stop: 09/20/24 15:46 Last Admin: 09/20/24 08:03 Dose: 125 mls/hr Discontinued Medications Hydralazine HCl (Hydralazine Inj 20 Mg/Ml Vial) 20 mg IVP X1 ONE Stop: 09/20/24 07:47 Last Admin: 09/20/24 07:57 Dose: 20 mg Hydromorphone HCl (Hydromorphone Inj 2 Mg/Ml Vial) 0.5 mg IVP X1 ONE Stop: 09/20/24 07:51 Last Admin: 09/20/24 07:58 Dose: 0.5 mg Hydromorphone HCl (Hydromorphone Inj 2 Mg/Ml Vial) 1 mg IVP X1 ONE Stop: 09/20/24 08:15 Last Admin: 09/20/24 08:23 Dose: 1 mg Promethazine HCl 25 mg/ Sodium (Chloride) 51 mls @ 2.5 mls/min IV X1 ONE Stop: 09/20/24 08:34 Last Infusion: 09/20/24 09:20 Dose: Infused Ketorolac Tromethamine (Ketorolac Inj 30 Mg/Ml Vial) 30 mg IVP X1 ONE Stop: 09/20/24 08:15 Last Admin: 09/20/24 08:23 Dose: 30 mg Morphine Sulfate (Morphine Sulf Inj 10 Mg/Ml Vial) 4 mg IVP X1 ONE Stop: 09/20/24 07:46 Last Admin: 09/20/24 07:51 Dose: Not Given Ondansetron HCl (Ondansetron Inj 2 Mg/Ml Inj 2 Ml) 4 mg IV X1 ONE Stop: 09/20/24 07:36 Last Admin: 09/20/24 07:43 Dose: 4 mg Prochlorperazine Edisylate (Prochlorperazine Inj 5 Mg/Ml Vial 2 Ml) 10 mg IM X1 ONE; Protocol Stop: 09/20/24 07:46 Last Admin: 09/20/24 08:23 Dose: 10 mg Prochlorperazine Edisylate (Prochlorperazine Inj 5 Mg/Ml Vial 2 Ml) 10 mg IM X1 ONE; Protocol Stop: 09/20/24 08:15 Last Admin: 09/20/24 08:53 Dose: Not Given Assessment & Plan Plan Ms Chapin is a 49 yo woman (PCP Trent) with hx of poorly controlled HTN, seen in the ED yesterday for hypertensive emergency, who presents to ED for epigastric pain that radiates to back, nausea and bilious, non bloody emesis found to have severe pancreatitis with necrosis on CTAP and dilated CBD on US. GI consulted. continue supportive measures #Acute Necrotizing Pancreatititis Dx -leukocytosis of 14 -triglycerides elevated, cholesterol elevated, LDH elevated, CRP elevated, amylase, elevated, lipase elevated -CTAP: severe pancreatitis with necrosis -GB US: GB absent, dilated CBD, reccomend MRCP -GI consulted, appreciate recs. Tx - NPO - LR fluids maintenance 100ml/hr - consider abx, wait for GI recs. - Pain * IV APAP scheduled * IV morpheine 4 q6hr * IV dilaudid 1.5 mg IV q4hr #Hypertensive emergency/urgency pt not taking home medications, perscriptions sent to pharmacy - Hydralizine 10 IV q6 prn #Steatohepatitis #incedental liver mass on imaging - GB US : Liver 14.5 cm fatty infiltration and 11 mm left lobe liver lesion - tumor markers: AFP and CEA pending Dispo: pt with severe pancreatitis with necrosis, dilation of bile duct, pending MRCP, GI consulted. transfer from [facility] tele to tele. Diet: NPO Bowel Reg: not indicated VTE ppx: heparin 5000 sq q12 hrs GI ppx: protonix IV Code status: FULL Plan discussed with nephrology attending Dr. Trent Sterling MD Internal Medicine PGY-1
[2024-09-20 12:04] LABS: Collection Type, Urine Clean Catch
[2024-09-20] MEDS: ACETAMINOPHEN IVPB 1,000 MG/100 ML VIAL 250 MG IV ×3 (12:06→23:42)
[2024-09-20 12:09] LABS: Bilirubin,Urine Negative (Negative); Blood,Urine Negative (Negative); Clarity,Urine Clear (Clear/Hazy); Color,Urine Lt-Yellow (Lt Yel-Yel); Culture Indicated,Urine Not Indicated; Glucose, Urine Trace (Negative); Ketones,Urine 1+ (Negative); Leukocyte Esterase,Urine Negative (Negative); Nitrite,Urine Negative (Negative); PH,Urine 6.5 (5.0-7.0); Protein,Urine Trace (Neg - Trace); RBC,Urine 1 /hpf (0-3); Specific Gravity,Urine 1.018 (1.001-1.035); Squamous Epithelial Cell,Urine 2 /hpf (0-5); Urobilinogen,Urine Negative mg/dL (0.0-1.0); WBC,Urine < 1 /hpf (0-5)
[2024-09-20] MEDS: RINGERS LACTATED 1000 ML 1,000 ML 100 ML IV (12:10)
[2024-09-20 12:45] LABS: HCG Qualitative,Urine Negative
[2024-09-20 14:08] LABS: Amylase 1202 U/L (30-118); Cardiac Risk Estimate 26.0 RATIO (3.7-5.6); Cholesterol 572 mg/dL (132-200); HDL Cholesterol 22 mg/dL (40-60); LDH (Lactate Dehydrogenase) 265 U/L (120-246); Lipase 1278 U/L (12-53); Triglycerides 3921 mg/dL (30-150)
[2024-09-20] MEDS: ONDANSETRON INJ 2 MG/ML INJ 2 ML 6 MG IVP (14:56)
[2024-09-20 15:05] LABS: C-Reactive Protein 3.0 mg/dL (0.0-0.9)
[2024-09-20] MEDS: POTASSIUM CHL 10 mEq IVPB 10 MEQ/100 ML BAG 100 MEQ IV ×3 (17:08→21:07)
[2024-09-20 17:20] LABS: AFP Non-Pregnant 3.00 ng/mL (<8.10); Carcinoembryonic Antigen 2.8 ng/mL (0.0-5.0)
[2024-09-20] MEDS: Magnesium Sulfate 4 GM Ivpb 4 GM/50 ML BAG IV (17:37)
[2024-09-20] MEDS: MORPHINE SULF INJ 10 MG/ML VIAL 4 MG IVP (17:51)
[2024-09-20] MEDS: POT PHOS 15 mMol in NS 250 ML 15 MMOL/250 ML BAG 62.5 MMOL IV (17:52)
[2024-09-20 18:22] LABS: Procalcitonin 0.09 ng/ml (0.0-0.49)
--- NOTE | 2024-09-20 19:43 | PC.NURSE ---
Called ICU CRISELDA Andrews from ICU to do IV [id number] pt is a hard stick no visible vein seen.
--- NOTE | 2024-09-20 19:44 | PC.NURSE ---
Pt is upgraded to Tele CN Len made aware.
[2024-09-20] MEDS: HYDROmorphone INJ 2 MG/ML VIAL 1.5 MG IVP (20:48)
[2024-09-20] MEDS: HEPARIN SOD INJ 5000 UNIT/ML VIAL SC (20:48)
[2024-09-20] MEDS: PROMETHAZINE INJ 25 MG/ML VIAL IM (21:02)
--- NOTE | 2024-09-20 21:39 | PD.IMCONS ---
HPI Data of Consult Requesting Physician: Stevie Newman MD Primary Care Provider: Stevie Newman MD Consult Narrative Reason for consult: Pain abdomen elevated amylase lipase abnormal CTAP History of present illness: 49 years old female presented the hospital with elevated blood pressure also complaining of abdominal pain and discomfort Workup in the emergency room showed the lipase to be [address] scan of the abdomen pelvis with contrast showed severe edema of the pancreas with extensive pancreatic necrosis Patient's bicarb was less than 10 on admission WBC count today is 14.2 and hemoglobin hematocrit 14.4 and 38.9 The lipase is trending downward today to 1278 Lipid panel shows a triglyceride level of 3921 Bicarbonate today has come up to 17.8 Patient has a previous history of hypertriglyceridemia induced pancreatitis and was hospitalized in 2021 cc:: cc: Stevie Newman MD Review of Systems Review of Systems Systems Reviewed: All systems reviewed, normal except as documented Past Medical History Surgical History OTHER SURGICAL HX: Essential hypertension Previous hospitalization for hypertriglyceridemia induced pancreatitis Meds Home Medications and Allergies Home Medications ?Medication ?Instructions ?Recorded ?Confirmed ?Type atorvastatin 80 mg tablet 80 mg PO HS 09/20/24 09/20/24 History losartan 100 1 tab PO QDAY 09/20/24 09/20/24 History mg-hydrochlorothiazide 25 mg tablet Allergies Allergy/AdvReac Type Severity Reaction Status Date / Time No Known Allergies Allergy Verified 09/20/24 06:45 Exam Vital Signs Temp Pulse Resp BP Pulse Ox O2 Del Method 97.1 F 99 18 142/89 H 96 Room Air 09/20/24 20:00 09/20/24 20:00 09/20/24 20:00 09/20/24 20:00 09/20/24 20:00 09/20/24 20:00 Constitutional Comments: Chronically ill-appearing Routine Respiratory Exam Comments: Normal to auscultation Routine Abdominal Exam Comments: Midepigastric bilateral flank pain Results Labs 09/20/24 07:49 09/20/24 07:49 Labs: Short CBC 09/20/24 Range/Units 07:49 WBC 14.2 H (3.6-11.0) Thou/mm3 Hgb 14.4 (12.0-16.0) g/dL Hct 38.9 (36.0-46.0) % Plt Count 323 (140-440) Thou/mm3 BMP 09/20/24 07:49 Sodium 138 Potassium 3.7 D Chloride 105 Carbon Dioxide 17.7 L BUN 15 Creatinine 0.8 Glucose 143 H D Calcium 9.0 Liver Function 09/20/24 Range/Units 07:49 Total Bilirubin 0.3 (0.3-1.2) mg/dL AST 29 (0-34) U/L ALT 23 (10-49) U/L Alkaline Phosphatase 80 (46-116) U/L Albumin 4.6 (3.5-5.0) gm/dL Urine 09/20/24 Range/Units 11:50 Urine Color Lt-Yellow (Lt Yel-Yel) Urine Clarity Clear (Clear/Hazy) Urine pH 6.5 (5.0-7.0) Ur Specific [place] 1.018 (1.001-1.035) Urine Protein Trace (Neg - Trace) Urine Glucose (UA) Trace (Negative) ABG Interpretation ABG results: 09/20/24 08:13 VBG pH 7.52 VBG pCO2 25 L D VBG pO2 144 H D VBG Base Excess -1 Assessment and Plan Additional Assessment & Plan Additional Plan: # Acute pancreatitis hyperglycemia induced with severe peripancreatic edema as well as possible acute necrosis although her bicarb level is improving and white count has mildly gone up to 14.2 most likely because of the inflammatory response Suggestions n.p.o. at repeat CBC CMP amylase lipase tomorrow morning MRI of the pancreas/abdomen tomorrow morning To further define if there is a true necrosis Patient is critically sick with a high mortality morbidity If the patient continues to improve I will keep her here if she starts deteriorating will transfer the patient to a tertiary center for further evaluation and management Aggressive management of the Acidemia with atorvastatin 80 mg p.o. as well as fenofibrate 145 mg p.o. dietary consult for hypertriglyceridemia Thank you very much for the opportunity to participate
[2024-09-20] MEDS: POTASSIUM CHL 10 mEq IVPB 10 MEQ/100 ML BAG 75 MEQ IV (22:13)
--- NOTE | 2024-09-20 22:19 | PC.NURSE ---
MD Joyner came and seen pt, increase IV pain meds.
[2024-09-21] VITALS (13 sets, daily range): BP systolic 95–135; BP diastolic 60–83; PULSE 85–111; RESP 14–96; TEMP 36–37.1; O2SAT 93–100; BMI 31.6
--- NOTE | 2024-09-21 | XR_ITS ---
Examination: Ultrasound-guided needle placement right brachial vein. Dual-lumen central line placement (PICC line). Fluoroscopy AP chest, portable, single view Exam date and time:September 21, 2024 1458 hours INDICATIONS: Need for long-term intravenous antibiotic therapy A timeout was completed verifying correct patient, procedure, site, positioning Informed consent provided Technique: The patient's site was prepped and draped in sterile fashion. Maximum Sterile Barrier Technique used including cap, mask, sterile gown, sterile gloves, and sterile full body drape. If ultrasound technique used: sterile gel and sterile probe covers. Hand Hygiene performed using proper scrub, soap and water, or alcohol-based hand rub. Site right portable apparatus utilized to confirm patency of the right brachial vein Utilizing ultrasonographic guidance successful 21-gauge needle puncture into the right brachial vein Ultrasound images recorded and stored. 5 cc 1% lidocaine administered for local anesthetic. Successful micropuncture with a 21-gauge needle is performed. 0.18 wire guide is then introduced into the SVC under fluoroscopic guidance. Dual-lumen catheter dilator is then introduced, followed by the catheter in the SVC and proper position under fluoroscopic guidance. Successful aspiration of blood and flushing with heparinized saline is then performed in the 2 venous limbs. The catheter sutured in place. Findings: Under fluoroscopy, the tip of the catheter is in good position in the vena cava. Portable chest x-ray, post line placement is ordered. Estimated blood loss 3 cc The patient tolerated the procedure well and was in stable and satisfactory condition at completion of the procedure Impression: Successful ultrasound-guided needle placement right brachial vein Successful placement of dual lumen central line, percutaneous Are osteopenic 0.2 minute radiation dose 3.47 milligray 1 spot fluoroscopic chest film. AP chest completion procedure demonstrates satisfactory position central line. May use central line.
--- NOTE | 2024-09-21 | XR_ITS ---
MRI abdomen, without contrast. MRCP Date and time of exam: September 21, 2024 1759 hours INDICATIONS: Abdominal pain, elevated lipase on laboratory examination today, severe acute pancreatitis on CT abdomen and pelvis September 20, 2024 Technique: Multiple axial and coronal images of the abdomen have been obtained with the Siemens 1.5T MRI scanner. Images obtained included T1 weighted transverse images, T2-weighted transverse images, T2-weighted transverse images fat-suppressed, T2 weighted haste fat suppressed transverse images, T1 weighted images, in and out of phase images, T2-weighted coronal images, breath hold, T2 weighted haze coronal images as well as T2 weighted coronal thick slab images, MRCP. Findings: Hepatomegaly 17 cm Gallbladder is not visualized Common hepatic duct 6 mm no stones Marked edema surrounding the pancreas extending into the abdomen Mild dilatation pancreatic duct Spleen is not enlarged No hydronephrosis Aorta normal size Impression : Hepatomegaly No common hepatic duct or common bile duct stones Severe acute pancreatitis, no pseudocyst at this time.
[2024-09-21] MEDS: HYDROmorphone INJ 2 MG/ML VIAL IVP ×4 (01:15→22:23)
[2024-09-21] MEDS: ONDANSETRON INJ 2 MG/ML INJ 2 ML 4 MG IVP ×3 (01:15→17:26)
[2024-09-21] MEDS: RINGERS LACTATED 1000 ML 1,000 ML 100 ML IV ×2 (01:19→12:07)
--- NOTE | 2024-09-21 01:24 | PC.NURSE ---
MD Newman called DT pts is vomiting at this time and her nausea meds is not due yet, ordered Zofran PRN.
[2024-09-21 01:37] LABS: Lipase 1159 U/L (12-53)
[2024-09-21] MEDS: ACETAMINOPHEN IVPB 1,000 MG/100 ML VIAL 250 MG IV ×3 (05:15→23:40)
[2024-09-21] MEDS: PROMETHAZINE HCL 25 MG TABLET PO ×3 (06:03→22:23)
[2024-09-21 08:11] LABS: Basophils # (Auto) 0.0 Thou/mm3 (0.0-0.2); Basophils % (Auto) 0 % (0-2.5); Eosinophils # (Auto) 0.0 Thou/mm3 (0.0-0.5); Eosinophils % (Auto) 0 % (0-10); Hematocrit 45.5 % (36.0-46.0); Hemoglobin 14.9 g/dL (12.0-16.0); Immature Granulocytes Auto 0.05 Thou/mm3 (0.00-0.00); Lymphocytes # (Auto) 0.7 Thou/mm3 (1.0-4.8); Lymphocytes % (Auto) 7 % (10-50); Mean Corpuscular HGB Conc 32.7 g/dl (31.0-37.0); Mean Corpuscular Hemoglobin 25.4 pg (25.0-35.0); Mean Corpuscular Volume 78 fL (80-100); Monocytes # (Auto) 0.3 Thou/mm3 (0.0-0.8); Monocytes % (Auto) 3 % (0-12); Neutrophils # (Auto) 9.2 Thou/mm3 (1.8-7.7); Neutrophils % (Auto) 89 % (37-80); Nucleated Red Blood Cell # 0.00 Thou/mm3 (0.00-0.00); Nucleated Red Blood Cell % 0 /100 WBC (0); Platelet Count 360 Thou/mm3 (140-440); RDW Standard Deviation 43.2 fL (36.4-46.3); Red Blood Count 5.86 Miln/mm3 (4.00-5.20); White Blood Count 10.3 Thou/mm3 (3.6-11.0)
[2024-09-21] MEDS: HEPARIN SOD INJ 5000 UNIT/ML VIAL SC ×2 (08:24→20:17)
[2024-09-21] MEDS: MORPHINE SULF INJ 10 MG/ML VIAL 4 MG IVP ×2 (09:57→17:26)
[2024-09-21 10:07] LABS: Amylase 1292 U/L (30-118); Lipase 592 U/L (12-53)
--- NOTE | 2024-09-21 10:15 | ESPR_ITS ---
Documentation for date of: 09/21/24 Subjective Subjective Interval history: Ms Chapin is a 49 yo woman with uncontrolled HTN, who was seen 09/19 in the ED sent by PCP (Dr. Newman) for SBP 200 with symptoms of headache and vision changes. clonidine was given while in the ED, and pt was discharged and instructed to brick picker antihtn meds PCP had refilled to the pharmacy. pt reported that she was working till 7 PM yesterday and was unable to brick picker the medications. pt presented the ED today for epigastric pain that radiates to the right side and to the back. 09/20/2024: pt admitted for acute pancreatitis pt reports that she has gone about 1 month without taking her medications due to running out , found to have severe pancreatitis with necrosis, Triglycerides 3900, Cholesterol 5572Lipase and amylase elevated. procal wnl. GI consulted, NPO pending MRCP 09/21/2024: Pt seen and examined at bedside. Her pain is better controlled, she continues to have belching and dry heaving. PPI started, started fenofibrate, ppi bid and statin. Lipase is downtrending 1159 to 592, amylase is stably elevated 1200, bicarb <10 IV bicarb given, abg ph 7.3, cont to monitor QTC given qt prologing agents, pending MRCP today, PICC line placed pending initiation of PPN, Dietition consulted. Exam Vital Signs Temp Pulse Resp BP Pulse Ox O2 Del Method 97.1 F 85 18 135/83 H 95 Room Air 09/21/24 04:00 09/21/24 08:34 09/21/24 08:34 09/21/24 05:59 09/21/24 04:00 09/21/24 04:00 Narrative Exam GENERAL: pt in moderate discomfort 2/2 pain and dry heaving, AAO x3, sitting upright in bed with vomit bag, intermittently belching and dry heaving. HEENT: Head AT/ NC. Mucous membranes dry. PERRL. CARDIOVASCULAR: RRR. Normal S1/S2, No m/r/g. No pitting edema of bilateral LEs. RESPIRATORY: CTAB. No wheezing, rhonchi, crackles. GASTROINTESTINAL: Abdomen soft, tender to palpation in the epigastrum no palpable masses. Bowel sounds hypoactive. intermittently heaving and with bilious non bloody emesis MUSCULOSKELETAL:? No cyanosis or edema, no visible joint swelling. NEUROLOGICAL: CN II-XII grossly intact. No focal deficits. Sensation intact, symmetric. SKIN: pale skin. Objective Labs 09/21/24 07:39 09/21/24 11:40 Labs: Laboratory Results - last 24 hr 09/20/24 09/20/24 09/21/24 11:50 13:15 00:47 WBC RBC Hgb Hct MCV MCH MCHC RDW Std Deviation Plt Count Neut % (Auto) Lymph % (Auto) [place] % (Auto) Eos % (Auto) Baso % (Auto) Neut # (Auto) Lymph # (Auto) [place] # (Auto) Eos # (Auto) Baso # (Auto) Immature Gran # (Auto) Absolute Nucleated RBC Immature Gran % Nucleated RBC % Lactate Dehydrogenase 265 H C-Reactive Prot, Quant 3.0 H Triglycerides 3921 H Cholesterol 572 H LDL Cholesterol, Calc TNP HDL Cholesterol 22 L Cholesterol/HDL Ratio 26.0 H Amylase 1202 H* Lipase 1278 H* D 1159 H* D Tumor Marker AFP 3.00 Carcinoembryonic Ag 2.8 Procalcitonin 0.09 Ur Collection Type Clean Catch Urine Color Lt-Yellow Urine Clarity Clear Urine pH 6.5 Ur Specific [place] 1.018 Urine Protein Trace Urine Glucose (UA) Trace Urine Ketones 1+ A Urine Blood Negative Urine Nitrite Negative Urine Bilirubin Negative Urine Urobilinogen (Auto) Negative Ur Leukocyte Esterase Negative Urine RBC 1 Urine WBC < 1 Ur Squamous Epith Cells 2 Urine Bacteria None Ur Culture Indicated? Not Indicated Urine HCG, Qual Negative 09/21/24 07:39 WBC 10.3 RBC 5.86 H Hgb 14.9 Hct 45.5 MCV 78 L MCH 25.4 MCHC 32.7 RDW Std Deviation 43.2 Plt Count 360 D Neut % (Auto) 89 H Lymph % (Auto) 7 L [place] % (Auto) 3 Eos % (Auto) 0 Baso % (Auto) 0 Neut # (Auto) 9.2 H Lymph # (Auto) 0.7 L [place] # (Auto) 0.3 Eos # (Auto) 0.0 Baso # (Auto) 0.0 Immature Gran # (Auto) 0.05 H Absolute Nucleated RBC 0.00 Immature Gran % 1 H Nucleated RBC % 0 Lactate Dehydrogenase C-Reactive Prot, Quant Triglycerides Cholesterol LDL Cholesterol, Calc HDL Cholesterol Cholesterol/HDL Ratio Amylase Lipase Tumor Marker AFP Carcinoembryonic Ag Procalcitonin Ur Collection Type Urine Color Urine Clarity Urine pH Ur Specific [place] Urine Protein Urine Glucose (UA) Urine Ketones Urine Blood Urine Nitrite Urine Bilirubin Urine Urobilinogen (Auto) Ur Leukocyte Esterase Urine RBC Urine WBC Ur Squamous Epith Cells Urine Bacteria Ur Culture Indicated? Urine HCG, Qual ABG Interpretation ABG results: 09/20/24 08:13 VBG pH 7.52 VBG pCO2 25 L D VBG pO2 144 H D VBG Base Excess -1 Quality Measures Quality Measures none Assessment & Plan Assessment Current Active Medications: Generic Name Dose Route Start Last Admin Trade Name Freq PRN Reason Stop Dose Admin Fenofibrate 145 mg 09/21/24 10:15 Fenofibrate 145 Mg Tablet (Non-Formulary) PO 10/21/24 10:14 QDAY RADHA Heparin Sodium (Porcine) 5,000 unit 09/20/24 21:00 09/21/24 08:24 Heparin Sod Inj 5000 Unit/Ml Vial SC 10/04/24 20:59 5,000 unit Q12HR RADHA Administration Hydralazine HCl 10 mg 09/20/24 11:54 Hydralazine Inj 20 Mg/Ml Vial IVP 10/20/24 11:53 Q6HR PRN SBP>180 Hydromorphone HCl 2 mg 09/20/24 22:19 09/21/24 06:02 Hydromorphone Inj 2 Mg/Ml Vial IVP 09/25/24 15:32 2 mg Q3HR PRN Administration third line for pain, 7-10 Lactated Ringer's 1,000 mls @ 100 mls/hr 09/20/24 11:45 09/21/24 01:19 Lactated Ringers IV 10/20/24 11:44 100 mls/hr .Q10H RADHA Administration Acetaminophen 1,000 mg in 100 mls @ 250 mls/hr 09/21/24 12:07 Ofirmev Inj IV 09/22/24 06:23 Q6HR RADHA Morphine Sulfate 4 mg 09/20/24 11:50 09/21/24 09:57 Morphine Sulf Inj 10 Mg/Ml Vial IVP 4 mg Q6H PRN Administration second line for pain 7-10 Ondansetron HCl 4 mg 09/21/24 01:01 09/21/24 09:55 Ondansetron Inj 2 Mg/Ml Inj 2 Ml IVP 10/21/24 01:00 4 mg Q6HR PRN Administration NAUSEA OR VOMITING Protocol Pantoprazole Sodium 40 mg 09/21/24 10:10 Pantoprazole Inj 40 Mg Vial IVP 10/21/24 10:09 BID RADHA Promethazine HCl 25 mg 09/21/24 01:02 09/21/24 06:03 Promethazine Hcl 25 Mg Tablet PO 10/21/24 01:01 25 mg Q6HR PRN Administration NAUSEA OR VOMITING Plan Ms Chapin is a 49 yo woman (PCP Trent) with hx of poorly controlled HTN, seen in the ED yesterday for hypertensive emergency, who presents to ED for epigastric pain that radiates to back, nausea and bilious, non bloody emesis found to have severe pancreatitis with necrosis on CTAP and dilated CBD on US. GI consulted, pending MRCP, low bicarb, hyperkalemic. #Acute Necrotizing Pancreatititis Pending MRCP, NPO, GI consult rec, close monitoring and possible transfer to tertiary center given necrosis. Dx -leukocytosis downtrended 10 from 14 -lipase downtrending 592 from 1159 -GI consulted, appreciate recs, possible need to transfer to tertiary center. Tx - NPO - LR fluids maintenance 100ml/hr until PPN initiated See #nutrition below. - Nausea * Phenergen prn, pt states that this works better for nausea. * zofran prn - Pain * IV APAP scheduled * IV morpheine 4 q6hr * IV dilaudid 1.5 mg IV q4hr #Nutrition Tryglycerides elevated to 3900 pt NPO given pancreatitis severe. - consult dietition given pt will be NPO and need PPN - PICC line ordered - plan for PPN #Hypocarbia #Hyperkalemia -f/u renal panel in afternoon -f/u abg #Hypertryglyceridemia - Start fenofibrate 145 mg p.o. #HLD - start atorvastatin 80 qhs. #Hypertensive emergency/urgency - resolved pt not taking home medications, perscriptions sent to pharmacy bp better controlled today - restart home medications - Hydralizine 10 IV q6 prn #Transaminitis - query 2/2 IV APAP given for pain management #Steatohepatitis #incedental liver mass on imaging - GB US : Liver 14.5 cm fatty infiltration and 11 mm left lobe liver lesion - tumor markers: AFP and CEA wnl Dispo: pt with severe pancreatitis with necrosis, dilation of bile duct, pending MRCP, GI consulted.possibly will need transfer to tertiary center. Diet: NPO Bowel Reg: not indicated VTE ppx: heparin 5000 sq q12 hrs GI ppx: protonix IV 40 BID Code status: FULL Plan discussed with nephrology attending Dr. Trent Sterling MD Internal Medicine PGY-1 Attending Provider Attestation/Addendum Patient seen and examined with resident physician Dr. Sterling. Note reviewed, agree with findings and recommendations. Patient admitted with acute abdominal pain and noted to have necrotizing pancreatitis. Abdominal pain better with medications. She still has nausea and vomiting. Currently on NPO. PPN was initiated. Appreciate Dr. Joyner recommendations. Bicarb significantly low at less than 10. [place].ABG showing pH 7.33, [id number], PO250, HCO3 20. Creatinine elevated at 2.2. Potassium artificially was elevated at 6.1 and repeat was 4.8. Patient was given an amp of bicarb and a bicarb drip was started. Noted Dr. Joyner added an amp of calcium gluconate. Will monitor her renal function and liver enzymes closely. Lipase improving. Patient has severe hypertriglyceridemia. On the Lipitor, fenofibrate. Regarding her blood pressure much better currently. Continue with present management. Overall her prognosis remains guarded. Patient will be sent to telemetry.
[2024-09-21] MEDS: FENOFIBRATE 145 MG TABLET (NON-FORMULARY) PO (11:08)
[2024-09-21 11:26] LABS: Alanine Aminotransferase 19 U/L (10-49); Albumin, Serum 3.8 gm/dL (3.5-5.0); Albumin/Globulin Ratio 1.5 (1.2-2.2); Alkaline Phosphatase 68 U/L (46-116); Anion Gap 19 (7-16); Aspartate Amino Transferase 43 U/L (0-34); BUN/Creatinine Ratio 9 Ratio (12-20); Bilirubin,Total 0.3 mg/dL (0.3-1.2); Blood Urea Nitrogen 21 mg/dL (9-23); Calcium 7.2 mg/dL (8.3-10.6); Calcium (Corrected) 7.4 mg/dL (8.5-10.1); Chloride 101 mMol/L (98-107); Creatinine (Component) 2.4 mg/dL (0.6-1.3); Estimated Creatinine Clearance 30.4 mL/min (>60); Globulin 2.5 gm/dL (2.3-3.5); Glucose 163 mg/dL (74-106); Magnesium 2.0 mg/dL (1.6-2.6); Osmolality,Calculated 267 (275-295); Phosphorous 3.0 mg/dL (2.4-5.1); Sodium 130 mMol/L (136-145); Total Protein 6.3 gm/dL (5.7-8.2); eGFR 24 See Note
[2024-09-21 11:29] LABS: Carbon Dioxide < 10.0 mMol/L (20.0-31.0); Potassium 6.1 mMol/L (3.4-5.1)
--- NOTE | 2024-09-21 11:39 | EKG_ITS ---
[facility] Test Date: 2024-09-21 Pat Name: GIOVANNI HERRERA Department: Room: S366A Gender: Female Nut Grinder: GABRIELA : 1975 Requested By: Xin Sterling Order Number: [id number] Reading MD: Xin Sterling Measurements Intervals [place] Rate: 94 P: 16 HI: 128 QRS: 12 QRSD: 85 T: 40 QT: 362 QTc: 454 Interpretive Statements SINUS RHYTHM POSSIBLE ANTERIOR MYOCARDIAL INFARCTION , PROBABLY OLD POSSIBLE INFERIOR MYOCARDIAL INFARCTION , PROBABLY OLD Compared to ECG 09/19/2024 13:00:12 Myocardial infarct finding now present /store/S0/[id number]
--- NOTE | 2024-09-21 12:52 | PC.DIETICIAN ---
Dietitian consult: when medically feasible, after PICC inserted, start CPN D20% AA5% at 40 ml/hr x 8 hrs, then 60 ml/hr for 8 hrs, then advance to goal of 85 ml/hr WITH NO LIPIDS. This provides 2040 ml volume, 102g AA, 408g dextrose, 1795 total calories Thank you
[2024-09-21 12:56] LABS: Base Excess -5 (-3-3); HCO3 20 mEq/L (20-26); Inspired Oxygen, FIO2 21 %; O2 Saturation 86 % (91-98); PCO2 38 mmHg (32.0-48.0); pH, Arterial 7.33 (7.35-7.45)
[2024-09-21 13:03] LABS: Allen Test Performed/OK; PO2 50 mmHg (83-108); Puncture Site Left Brachial
[2024-09-21 13:24] LABS: Albumin, Serum 3.7 gm/dL (3.5-5.0); Anion Gap 21 (7-16); BUN/Creatinine Ratio 11 Ratio (12-20); Blood Urea Nitrogen 25 mg/dL (9-23); C-Reactive Protein 28.3 mg/dL (0.0-0.9); Calcium 7.3 mg/dL (8.3-10.6); Calcium (Corrected) 7.5 mg/dL (8.5-10.1); Chloride 101 mMol/L (98-107); Creatinine (Component) 2.2 mg/dL (0.6-1.3); Estimated Creatinine Clearance 32.5 mL/min (>60); Glucose 162 mg/dL (74-106); Osmolality,Calculated 272 (275-295); Phosphorous 3.3 mg/dL (2.4-5.1); Potassium 4.8 mMol/L (3.4-5.1); Sodium 132 mMol/L (136-145); eGFR 27 See Note
[2024-09-21 13:25] LABS: Carbon Dioxide < 10.0 mMol/L (20.0-31.0)
[2024-09-21] MEDS: Sodium Bicarb 8.4% 50ml Vial* 88.23 MEQ in DEXTROSE 5%-WATER 500 ML 100 MEQ IV ×2 (13:27→23:39)
[2024-09-21] MEDS: HEPARIN SOD LOCK SYR 100 UNIT/ML 500 UNIT IV (15:43)
[2024-09-21] MEDS: LIDOCAINE INJ PF 1% 30 ML VIAL 5 ML INFL (15:44)
--- NOTE | 2024-09-21 16:50 | PC.NURSE ---
[facility] patient alert and oriented. hand off report given to gris asif. Gris asif and I assessed dressing. dressing is clean dry and intact. site is soft, flat, and non tender.
--- NOTE | 2024-09-21 19:44 | PD.IMPROG ---
Documentation for date of: 09/21/24 Subjective Subjective Interval history: Patient evaluated WBC count trending downwards to 10.3 MRCP negative for For any choledocholithiasis does show edema of the pancreas Calcium is low at 7.5 Bicarb less than 10 patient on a bicarb drip Will give 1 ampoule of calcium gluconate Exam Vital Signs Temp Pulse Resp BP Pulse Ox O2 Del Method 96.8 F 101 H 14 110/61 96 Room Air 09/21/24 17:20 09/21/24 17:20 09/21/24 17:20 09/21/24 17:20 09/21/24 17:20 09/21/24 17:20 Objective Labs 09/21/24 07:39 09/21/24 11:40 Labs: Laboratory Results - last 24 hr 09/21/24 09/21/24 09/21/24 00:47 07:39 08:50 WBC 10.3 RBC 5.86 H Hgb 14.9 Hct 45.5 MCV 78 L MCH 25.4 MCHC 32.7 RDW Std Deviation 43.2 Plt Count 360 D Neut % (Auto) 89 H Lymph % (Auto) 7 L [place] % (Auto) 3 Eos % (Auto) 0 Baso % (Auto) 0 Neut # (Auto) 9.2 H Lymph # (Auto) 0.7 L [place] # (Auto) 0.3 Eos # (Auto) 0.0 Baso # (Auto) 0.0 Immature Gran # (Auto) 0.05 H Absolute Nucleated RBC 0.00 Immature Gran % 1 H Nucleated RBC % 0 Puncture Site ABG pH ABG pCO2 ABG pO2 ABG HCO3 ABG O2 Saturation ABG Base Excess FiO2 Sodium 130 L Potassium 6.1 H* D Chloride 101 Carbon Dioxide < 10.0 L* Anion Gap 19 H BUN 21 Creatinine 2.4 H D Estim Creat Clear Calc 30.4 L eGFR 24 L BUN/Creatinine Ratio 9 L Glucose 163 H Calculated Osmolality 267 L Calcium 7.2 L D Corrected Calcium 7.4 L D Phosphorus 3.0 Magnesium 2.0 Total Bilirubin 0.3 AST 43 H ALT 19 Alkaline Phosphatase 68 C-Reactive Prot, Quant Total Protein 6.3 Albumin 3.8 D Globulin 2.5 Albumin/Globulin Ratio 1.5 Amylase 1292 H* Lipase 1159 H* D 592 H D 09/21/24 09/21/24 11:40 12:54 WBC RBC Hgb Hct MCV MCH MCHC RDW Std Deviation Plt Count Neut % (Auto) Lymph % (Auto) [place] % (Auto) Eos % (Auto) Baso % (Auto) Neut # (Auto) Lymph # (Auto) [place] # (Auto) Eos # (Auto) Baso # (Auto) Immature Gran # (Auto) Absolute Nucleated RBC Immature Gran % Nucleated RBC % Puncture Site Left Brachial ABG pH 7.33 L ABG pCO2 38 ABG pO2 50 L* ABG HCO3 20 ABG O2 Saturation 86 L ABG Base Excess -5 L FiO2 21 Sodium 132 L Potassium 4.8 D Chloride 101 Carbon Dioxide < 10.0 L* Anion Gap 21 H BUN 25 H Creatinine 2.2 H Estim Creat Clear Calc 32.5 L eGFR 27 L BUN/Creatinine Ratio 11 L Glucose 162 H Calculated Osmolality 272 L Calcium 7.3 L Corrected Calcium 7.5 L Phosphorus 3.3 Magnesium Total Bilirubin AST ALT Alkaline Phosphatase C-Reactive Prot, Quant 28.3 H Total Protein Albumin 3.7 Globulin Albumin/Globulin Ratio Amylase Lipase Impressions Impression: # Acute hypertriglyceridemia induced pancreatitis severe # Metabolic acidosis # Downward trending WBC count as well as amylase and lipase # Hypocalcemia Patient is critically sick with very high mortality and morbidity Continue current supportive care ABG Interpretation ABG results: 09/20/24 09/21/24 08:13 12:54 ABG pH 7.33 L ABG pCO2 38 ABG pO2 50 L* ABG HCO3 20 ABG O2 Saturation 86 L ABG Base Excess -5 L VBG pH 7.52 VBG pCO2 25 L D VBG pO2 144 H D VBG Base Excess -1 Assessment & Plan A&P Narrative # Acute pancreatitis hyperglycemia induced with severe peripancreatic edema as well as possible acute necrosis although her bicarb level is improving and white count has mildly gone up to 14.2 most likely because of the inflammatory response Suggestions n.p.o. at repeat CBC CMP amylase lipase tomorrow morning MRI of the pancreas/abdomen tomorrow morning To further define if there is a true necrosis Patient is critically sick with a high mortality morbidity If the patient continues to improve I will keep her here if she starts deteriorating will transfer the patient to a tertiary center for further evaluation and management Aggressive management of the Acidemia with atorvastatin 80 mg p.o. as well as fenofibrate 145 mg p.o. dietary consult for hypertriglyceridemia Thank you very much for the opportunity to participate Time Spent With Patient Time: Total time spent is greater than 50% in coordination of care (as documented) at patient's floor/unit and/or counseling patient:
[2024-09-21] MEDS: ATORVASTATIN CALCIUM 20 MG TABLET 80 MG PO (20:17)
[2024-09-21] MEDS: CALCIUM GLUCONATE 10% INJ 1 GM/10 ML VIAL IV (20:17)
[2024-09-21 21:55] LABS: Albumin, Serum 3.4 gm/dL (3.5-5.0); Anion Gap 13 (7-16); BUN/Creatinine Ratio 14 Ratio (12-20); Blood Urea Nitrogen 23 mg/dL (9-23); Calcium (Corrected) 7.1 mg/dL (8.5-10.1); Carbon Dioxide 25.3 mMol/L (20.0-31.0); Chloride 96 mMol/L (98-107); Creatinine (Component) 1.6 mg/dL (0.6-1.3); Estimated Creatinine Clearance 44.7 mL/min (>60); Osmolality,Calculated 289 (275-295); Phosphorous 2.1 mg/dL (2.4-5.1); Potassium 3.4 mMol/L (3.4-5.1); Sodium 134 mMol/L (136-145); eGFR 39 See Note
[2024-09-21 21:57] LABS: Glucose 421 mg/dL (74-106)
[2024-09-21 21:58] LABS: Calcium 6.6 mg/dL (8.3-10.6)
[2024-09-21] MEDS: CALCIUM CARBONATE 600 MG TABLET PO (22:23)
[2024-09-21 22:36] LABS: Lactate (Lactic Acid) 1.9 mMol/L (0.4-2.0)
[2024-09-22] VITALS (9 sets, daily range): BP systolic 94–149; BP diastolic 54–77; PULSE 88–128; RESP 15–96; TEMP 36.1–37.1; O2SAT 95–98
[2024-09-22 00:40] LABS: Potassium 3.4 mMol/L (3.4-5.1)
[2024-09-22] MEDS: ONDANSETRON INJ 2 MG/ML INJ 2 ML 4 MG IVP ×2 (03:35→11:17)
[2024-09-22] MEDS: MORPHINE SULF INJ 10 MG/ML VIAL 4 MG IVP ×2 (03:35→11:17)
[2024-09-22 05:26] LABS: Lactate (Lactic Acid) 1.3 mMol/L (0.4-2.0)
[2024-09-22 05:42] LABS: Basophils # (Auto) 0.0 Thou/mm3 (0.0-0.2); Basophils % (Auto) 0 % (0-2.5); Eosinophils # (Auto) 0.1 Thou/mm3 (0.0-0.5); Eosinophils % (Auto) 1 % (0-10); Hematocrit 34.0 % (36.0-46.0); Hemoglobin 11.0 g/dL (12.0-16.0); Immature Granulocytes Auto 0.06 Thou/mm3 (0.00-0.00); Lymphocytes # (Auto) 0.6 Thou/mm3 (1.0-4.8); Lymphocytes % (Auto) 7 % (10-50); Mean Corpuscular HGB Conc 32.4 g/dl (31.0-37.0); Mean Corpuscular Hemoglobin 25.3 pg (25.0-35.0); Mean Corpuscular Volume 78 fL (80-100); Monocytes # (Auto) 0.4 Thou/mm3 (0.0-0.8); Monocytes % (Auto) 4 % (0-12); Neutrophils # (Auto) 8.0 Thou/mm3 (1.8-7.7); Neutrophils % (Auto) 87 % (37-80); Nucleated Red Blood Cell # 0.00 Thou/mm3 (0.00-0.00); Nucleated Red Blood Cell % 0 /100 WBC (0); Platelet Count 273 Thou/mm3 (140-440); RDW Standard Deviation 43.9 fL (36.4-46.3); Red Blood Count 4.34 Miln/mm3 (4.00-5.20); White Blood Count 9.2 Thou/mm3 (3.6-11.0)
[2024-09-22] MEDS: ACETAMINOPHEN IVPB 1,000 MG/100 ML VIAL 250 MG IV ×2 (06:06→11:18)
[2024-09-22] MEDS: PROMETHAZINE HCL 25 MG TABLET PO ×2 (06:06→18:16)
[2024-09-22] MEDS: Sodium Bicarb 8.4% 50ml Vial* 88.23 MEQ in DEXTROSE 5%-WATER 500 ML 100 MEQ IV (06:06)
[2024-09-22] MEDS: HYDROmorphone INJ 2 MG/ML VIAL IVP ×2 (06:31→18:16)
[2024-09-22] MEDS: SIMETHICONE 80 MG CHEW PO ×2 (06:34→14:37)
[2024-09-22 06:49] LABS: Alanine Aminotransferase 14 U/L (10-49); Albumin, Serum 3.5 gm/dL (3.5-5.0); Albumin/Globulin Ratio 1.5 (1.2-2.2); Alkaline Phosphatase 59 U/L (46-116); Anion Gap 12 (7-16); Aspartate Amino Transferase 37 U/L (0-34); BUN/Creatinine Ratio 15 Ratio (12-20); Bilirubin,Total 0.4 mg/dL (0.3-1.2); Blood Urea Nitrogen 29 mg/dL (9-23); Calcium 7.7 mg/dL (8.3-10.6); Calcium (Corrected) 8.1 mg/dL (8.5-10.1); Carbon Dioxide 22.9 mMol/L (20.0-31.0); Chloride 99 mMol/L (98-107); Creatinine (Component) 1.9 mg/dL (0.6-1.3); Estimated Creatinine Clearance 37.6 mL/min (>60); Globulin 2.3 gm/dL (2.3-3.5); Glucose 147 mg/dL (74-106); Magnesium 2.2 mg/dL (1.6-2.6); Osmolality,Calculated 277 (275-295); Phosphorous 3.1 mg/dL (2.4-5.1); Potassium 3.6 mMol/L (3.4-5.1); Sodium 134 mMol/L (136-145); Total Protein 5.8 gm/dL (5.7-8.2); eGFR 32 See Note
--- NOTE | 2024-09-22 06:59 | ESPR_ITS ---
Documentation for date of: 09/22/24 Subjective Subjective Interval history: Ms Chapin is a 49 yo woman with uncontrolled HTN, who was seen 09/19 in the ED sent by PCP (Dr. Newman) for SBP 200 with symptoms of headache and vision changes. clonidine was given while in the ED, and pt was discharged and instructed to pickle maker antihtn meds PCP had refilled to the pharmacy. pt reported that she was working till 7 PM yesterday and was unable to pickle maker the medications. pt presented the ED today for epigastric pain that radiates to the right side and to the back. 09/20/2024: pt admitted for acute pancreatitis pt reports that she has gone about 1 month without taking her medications due to running out , found to have severe pancreatitis with necrosis, Triglycerides 3900, Cholesterol 5572Lipase and amylase elevated. procal wnl. GI consulted, NPO pending MRCP 09/21/2024: Pt seen and examined at bedside. Her pain is better controlled, she continues to have belching and dry heaving. PPI started, started fenofibrate, ppi bid and statin. Lipase is downtrending 1159 to 592, amylase is stably elevated 1200, bicarb <10 IV bicarb given, abg ph 7.3, cont to monitor QTC given qt prologing agents, pending MRCP today, PICC line placed pending initiation of PPN, Dietition consulted. 09/22/2024: given calcium gluconate overnight per dr. hill. Patient seen and examined at bedside. she had severe pain this morning and got 2 of dilaudid, and given simethicone. Her nausea and vomiting are improved. Cont on PPI, fenofibrate, and statin. Lipase downtrending today 171 from 592. WBC wnl BP soft 90s/50s holding home antihtn meds d/c bicarb drip (now wnl, and serum gluc elevated to 400s overnight). Start CPN today no fat. Exam Vital Signs Temp Pulse Resp BP Pulse Ox O2 Del Method 97.0 F 88 18 98/54 L 98 Room Air 09/22/24 04:00 09/22/24 05:52 09/22/24 05:52 09/22/24 04:00 09/22/24 04:00 09/22/24 04:00 Narrative Exam GENERAL: pt in moderate discomfort 2/2 pain and dry heaving, AAO x3, sitting upright in bed with vomit bag, intermittently belching and dry heaving. HEENT: Head AT/ NC. Mucous membranes dry. PERRL. CARDIOVASCULAR: RRR. Normal S1/S2, +systolic murmor. No pitting edema of bilateral LEs. RESPIRATORY: CTAB. No wheezing, rhonchi, crackles. GASTROINTESTINAL: Abdomen soft, mildly tender to palpation in the epigastrum no palpable masses. Bowel sounds hypoactive. no more heaving and decreased belching. MUSCULOSKELETAL:? No cyanosis or edema, no visible joint swelling. NEUROLOGICAL: CN II-XII grossly intact. No focal deficits. Sensation intact, symmetric. SKIN: pale skin. Objective Labs 09/23/24 04:25 09/23/24 04:25 Labs: Laboratory Results - last 24 hr 09/21/24 09/21/24 09/21/24 07:39 08:50 11:40 WBC 10.3 RBC 5.86 H Hgb 14.9 Hct 45.5 MCV 78 L MCH 25.4 MCHC 32.7 RDW Std Deviation 43.2 Plt Count 360 D Neut % (Auto) 89 H Lymph % (Auto) 7 L [place] % (Auto) 3 Eos % (Auto) 0 Baso % (Auto) 0 Neut # (Auto) 9.2 H Lymph # (Auto) 0.7 L [place] # (Auto) 0.3 Eos # (Auto) 0.0 Baso # (Auto) 0.0 Immature Gran # (Auto) 0.05 H Absolute Nucleated RBC 0.00 Immature Gran % 1 H Nucleated RBC % 0 Puncture Site ABG pH ABG pCO2 ABG pO2 ABG HCO3 ABG O2 Saturation ABG Base Excess FiO2 Sodium 130 L 132 L Potassium 6.1 H* D 4.8 D Chloride 101 101 Carbon Dioxide < 10.0 L* < 10.0 L* Anion Gap 19 H 21 H BUN 21 25 H Creatinine 2.4 H D 2.2 H Estim Creat Clear Calc 30.4 L 32.5 L eGFR 24 L 27 L BUN/Creatinine Ratio 9 L 11 L Glucose 163 H 162 H Calculated Osmolality 267 L 272 L Lactic Acid Calcium 7.2 L D 7.3 L Corrected Calcium 7.4 L D 7.5 L Phosphorus 3.0 3.3 Magnesium 2.0 Total Bilirubin 0.3 AST 43 H ALT 19 Alkaline Phosphatase 68 C-Reactive Prot, Quant 28.3 H Total Protein 6.3 Albumin 3.8 D 3.7 Globulin 2.5 Albumin/Globulin Ratio 1.5 Amylase 1292 H* Lipase 592 H D 09/21/24 09/21/24 09/21/24 12:54 20:45 22:25 WBC RBC Hgb Hct MCV MCH MCHC RDW Std Deviation Plt Count Neut % (Auto) Lymph % (Auto) [place] % (Auto) Eos % (Auto) Baso % (Auto) Neut # (Auto) Lymph # (Auto) [place] # (Auto) Eos # (Auto) Baso # (Auto) Immature Gran # (Auto) Absolute Nucleated RBC Immature Gran % Nucleated RBC % Puncture Site Left Brachial ABG pH 7.33 L ABG pCO2 38 ABG pO2 50 L* ABG HCO3 20 ABG O2 Saturation 86 L ABG Base Excess -5 L FiO2 21 Sodium 134 L Potassium 3.4 D Chloride 96 L Carbon Dioxide 25.3 Anion Gap 13 BUN 23 Creatinine 1.6 H D Estim Creat Clear Calc 44.7 L eGFR 39 L BUN/Creatinine Ratio 14 Glucose 421 H* D Calculated Osmolality 289 Lactic Acid 1.9 Calcium 6.6 L* Corrected Calcium 7.1 L Phosphorus 2.1 L Magnesium Total Bilirubin AST ALT Alkaline Phosphatase C-Reactive Prot, Quant Total Protein Albumin 3.4 L Globulin Albumin/Globulin Ratio Amylase Lipase 09/22/24 09/22/24 00:00 04:57 WBC 9.2 RBC 4.34 Hgb 11.0 L D Hct 34.0 L D MCV 78 L MCH 25.3 MCHC 32.4 RDW Std Deviation 43.9 Plt Count 273 D Neut % (Auto) 87 H Lymph % (Auto) 7 L [place] % (Auto) 4 Eos % (Auto) 1 Baso % (Auto) 0 Neut # (Auto) 8.0 H Lymph # (Auto) 0.6 L [place] # (Auto) 0.4 Eos # (Auto) 0.1 Baso # (Auto) 0.0 Immature Gran # (Auto) 0.06 H Absolute Nucleated RBC 0.00 Immature Gran % 1 H Nucleated RBC % 0 Puncture Site ABG pH ABG pCO2 ABG pO2 ABG HCO3 ABG O2 Saturation ABG Base Excess FiO2 Sodium 134 L Potassium 3.4 3.6 Chloride 99 Carbon Dioxide 22.9 Anion Gap 12 BUN 29 H Creatinine 1.9 H Estim Creat Clear Calc 37.6 L eGFR 32 L BUN/Creatinine Ratio 15 Glucose 147 H D Calculated Osmolality 277 Lactic Acid 1.3 Calcium 7.7 L Corrected Calcium 8.1 L Phosphorus 3.1 Magnesium 2.2 Total Bilirubin 0.4 AST 37 H ALT 14 Alkaline Phosphatase 59 C-Reactive Prot, Quant Total Protein 5.8 Albumin 3.5 Globulin 2.3 Albumin/Globulin Ratio 1.5 Amylase Lipase ABG Interpretation ABG results: 09/20/24 09/21/24 08:13 12:54 ABG pH 7.33 L ABG pCO2 38 ABG pO2 50 L* ABG HCO3 20 ABG O2 Saturation 86 L ABG Base Excess -5 L VBG pH 7.52 VBG pCO2 25 L D VBG pO2 144 H D VBG Base Excess -1 Quality Measures Quality Measures VTE prophylaxis Assessment & Plan Assessment Current Active Medications: Generic Name Dose Route Start Last Admin Trade Name Freq PRN Reason Stop Dose Admin Atorvastatin Calcium 80 mg 09/21/24 21:00 09/21/24 20:17 Atorvastatin Calcium 20 Mg Tablet PO 10/21/24 20:59 80 mg HS RADHA Administration Fenofibrate 145 mg 09/21/24 10:15 09/21/24 11:08 Fenofibrate 145 Mg Tablet (Non-Formulary) PO 10/21/24 10:14 145 mg QDAY RADHA Administration Heparin Sodium (Porcine) 5,000 unit 09/20/24 21:00 09/21/24 20:17 Heparin Sod Inj 5000 Unit/Ml Vial SC 10/04/24 20:59 5,000 unit Q12HR RADHA Administration Hydralazine HCl 10 mg 09/20/24 11:54 Hydralazine Inj 20 Mg/Ml Vial IVP 10/20/24 11:53 Q6HR PRN SBP>180 Hydromorphone HCl 2 mg 09/20/24 22:19 09/22/24 06:31 Hydromorphone Inj 2 Mg/Ml Vial IVP 09/25/24 15:32 2 mg Q3HR PRN Administration third line for pain, 7-10 Sodium Bicarbonate 88.23 meq/ 588.23 mls @ 100 mls/hr 09/21/24 12:33 09/22/24 06:06 Dextrose IV 10/21/24 12:32 100 mls/hr .[id number] RADHA Administration Acetaminophen 1,000 mg in 100 mls @ 250 mls/hr 09/22/24 00:00 09/22/24 06:06 Ofirmev Inj IV 09/22/24 12:23 250 mls/hr Q6HR RADHA Administration Morphine Sulfate 4 mg 09/21/24 20:51 09/22/24 03:35 Morphine Sulf Inj 10 Mg/Ml Vial IVP 09/26/24 20:50 4 mg Q6HR PRN Administration PAIN SCALE 4-6 (Moderate Ondansetron HCl 4 mg 09/21/24 01:01 09/22/24 03:35 Ondansetron Inj 2 Mg/Ml Inj 2 Ml IVP 10/21/24 01:00 4 mg Q6HR PRN Administration NAUSEA OR VOMITING Protocol Pantoprazole Sodium 40 mg 09/21/24 10:10 09/21/24 20:16 Pantoprazole Inj 40 Mg Vial IVP 10/21/24 10:09 40 mg BID RADHA Administration Promethazine HCl 25 mg 09/21/24 01:02 09/22/24 06:06 Promethazine Hcl 25 Mg Tablet PO 10/21/24 01:01 25 mg Q6HR PRN Administration NAUSEA OR VOMITING Plan Ms Chapin is a 49 yo woman (PCP [facility]) with hx of poorly controlled HTN, seen in the ED yesterday for hypertensive emergency, who presents to ED for epigastric pain that radiates to back, nausea and bilious, non bloody emesis found to have severe pancreatitis with necrosis on CTAP and dilated CBD on US. GI consulted,MRCP completed, pt remains NPO, PICC line in place, CPN to be initiated, discussed with Dietitian. clinically much improved. #Acute Necrotizing Pancreatititis GI consult rec, close monitoring and possible transfer to tertiary center given necrosis. Dx -leukocytosis downtrended, wnl -lipase downtrending 171 from 592 -GI consulted, appreciate recs, -MRCP: Marked edema surrounding the pancreas extending into the abdomen Mild dilatation pancreatic duct Tx - NPO - NS fluids maintenance 100ml/hr until PPN initiated (Na and Cl mildly low) See #nutrition below. - Nausea * Phenergen prn, pt states that this works better for nausea. * Simethicone for bloating or gas PRN - Pain * IV APAP scheduled * IV morpheine 4 q6hr * IV dilaudid 1.5 mg IV q4hr #Nutrition Tryglycerides elevated to 3900 pt NPO given pancreatitis severe. - consult dietition - PICC line placed - plan for CPN D20% AA5% at 40 ml/hr x 8 hrs, then 60 ml/hr for 8 hrs, then advance to goal of 85 ml/hr WITH NO LIPIDS. This provides 2040 ml volume, 102g AA, 408g dextrose, 1795 total calories #Hypocarbia #Hyperkalemia wnl - replete K with 20 units 09/22 #Hypertryglyceridemia - Start fenofibrate 145 mg p.o. #HLD - start atorvastatin 80 qhs. #Hypertensive emergency/urgency - resolved pt not taking home medications, perscriptions sent to pharmacy bp soft today 90s/50s - HOLD home medications - Hydralizine 10 IV q6 prn #Transaminitis - query 2/2 IV APAP given for pain management #Steatohepatitis #incedental liver mass on imaging - GB US : Liver 14.5 cm fatty infiltration and 11 mm left lobe liver lesion - tumor markers: AFP and CEA wnl Dispo: pt with severe pancreatitis with necrosis, s/p MRCP Marked edema surrounding the pancreas extending into the abdomen. Mild dilatation pancreatic duct. starting on CPN . Lipase downtrending. pain better controlled Diet: NPO Lines: RUE picc line. Bowel Reg: not indicated VTE ppx: heparin 5000 sq q12 hrs GI ppx: protonix IV 40 BID Code status: FULL Plan discussed with nephrology attending Dr. Ternt Sterling MD Internal Medicine PGY-1 Attending Provider Attestation/Addendum Patient seen and examined with resident physician Dr. Sterling. Note reviewed, agree with findings and recommendations. Patient admitted with acute abdominal pain and noted to have necrotizing pancreatitis. Abdominal pain better with medications. She still has nausea and vomiting. Currently on NPO. PPN was initiated. Appreciate Dr. Hill recommendations. Bicarb significantly low at less than 10. [place].ABG showing pH 7.33, ZUE002, PO250, HCO3 20. Creatinine elevated at 2.2. Potassium artificially was elevated at 6.1 and repeat was 4.8. Patient was given an amp of bicarb and a bicarb drip was started. Noted Dr. Hill added an amp of calcium gluconate. 09/22/2024 patient resting comfortably. Currently seen in telemetry abdominal pain tad better. On Dilaudid [id number]. Currently on NPO. Patient has PICC line and is currently receiving PPN. Will monitor her renal function and liver enzymes closely. Lipase improving. Patient has severe hypertriglyceridemia. On the Lipitor, fenofibrate. Regarding her blood pressure much better currently. Continue with present management. Hold transfer for now.
[2024-09-22] MEDS: POTASSIUM CHL 10 mEq IVPB 10 MEQ/100 ML BAG 100 MEQ IV ×2 (07:36→08:55)
[2024-09-22] MEDS: SODIUM CHLORIDE 0.9% 1000 ML 1,000 ML 100 ML IV ×2 (07:36→18:15)
[2024-09-22 07:40] LABS: Lipase 171 U/L (12-53)
[2024-09-22] MEDS: HEPARIN SOD INJ 5000 UNIT/ML VIAL SC ×2 (08:55→21:52)
[2024-09-22] MEDS: FENOFIBRATE 145 MG TABLET (NON-FORMULARY) PO (11:09)
[2024-09-22] MEDS: MULTIVITAMIN INJ 10 ML in AMINO ACID 5%/D20W E 2,000 ML 40 ML IV (18:16)
--- NOTE | 2024-09-22 21:35 | PD.IMPROG ---
Documentation for date of: 09/22/24 Subjective Subjective Interval history: Clinically improving Bicarb is up to 22.9 Lipase trending downward to 171 WBC count 9.2 Drop about hemoglobin to 11.0 and 34.0 with the BUN/creatinine staying around 29 and 1.9 Exam Vital Signs Temp Pulse Resp BP Pulse Ox O2 Del Method 98.8 F 105 H 16 111/70 97 Room Air 09/22/24 19:50 09/22/24 19:50 09/22/24 19:50 09/22/24 19:50 09/22/24 19:50 09/22/24 19:50 Objective Labs 09/22/24 04:57 09/22/24 04:57 Labs: Laboratory Results - last 24 hr 09/21/24 09/21/24 09/22/24 20:45 22:25 00:00 WBC RBC Hgb Hct MCV MCH MCHC RDW Std Deviation Plt Count Neut % (Auto) Lymph % (Auto) [place] % (Auto) Eos % (Auto) Baso % (Auto) Neut # (Auto) Lymph # (Auto) [place] # (Auto) Eos # (Auto) Baso # (Auto) Immature Gran # (Auto) Absolute Nucleated RBC Immature Gran % Nucleated RBC % Sodium 134 L Potassium 3.4 D 3.4 Chloride 96 L Carbon Dioxide 25.3 Anion Gap 13 BUN 23 Creatinine 1.6 H D Estim Creat Clear Calc 44.7 L eGFR 39 L BUN/Creatinine Ratio 14 Glucose 421 H* D Calculated Osmolality 289 Lactic Acid 1.9 Calcium 6.6 L* Corrected Calcium 7.1 L Phosphorus 2.1 L Magnesium Total Bilirubin AST ALT Alkaline Phosphatase Total Protein Albumin 3.4 L Globulin Albumin/Globulin Ratio Lipase 09/22/24 04:57 WBC 9.2 RBC 4.34 Hgb 11.0 L D Hct 34.0 L D MCV 78 L MCH 25.3 MCHC 32.4 RDW Std Deviation 43.9 Plt Count 273 D Neut % (Auto) 87 H Lymph % (Auto) 7 L [place] % (Auto) 4 Eos % (Auto) 1 Baso % (Auto) 0 Neut # (Auto) 8.0 H Lymph # (Auto) 0.6 L [place] # (Auto) 0.4 Eos # (Auto) 0.1 Baso # (Auto) 0.0 Immature Gran # (Auto) 0.06 H Absolute Nucleated RBC 0.00 Immature Gran % 1 H Nucleated RBC % 0 Sodium 134 L Potassium 3.6 Chloride 99 Carbon Dioxide 22.9 Anion Gap 12 BUN 29 H Creatinine 1.9 H Estim Creat Clear Calc 37.6 L eGFR 32 L BUN/Creatinine Ratio 15 Glucose 147 H D Calculated Osmolality 277 Lactic Acid 1.3 Calcium 7.7 L Corrected Calcium 8.1 L Phosphorus 3.1 Magnesium 2.2 Total Bilirubin 0.4 AST 37 H ALT 14 Alkaline Phosphatase 59 Total Protein 5.8 Albumin 3.5 Globulin 2.3 Albumin/Globulin Ratio 1.5 Lipase 171 H D Impressions Impression: Acute pancreatitis hypertriglyceridemia induced clinically improving Continue current management ABG Interpretation ABG results: 09/20/24 09/21/24 08:13 12:54 ABG pH 7.33 L ABG pCO2 38 ABG pO2 50 L* ABG HCO3 20 ABG O2 Saturation 86 L ABG Base Excess -5 L VBG pH 7.52 VBG pCO2 25 L D VBG pO2 144 H D VBG Base Excess -1 Assessment & Plan A&P Narrative # Acute pancreatitis hyperglycemia induced with severe peripancreatic edema as well as possible acute necrosis although her bicarb level is improving and white count has mildly gone up to 14.2 most likely because of the inflammatory response Suggestions n.p.o. at repeat CBC CMP amylase lipase tomorrow morning MRI of the pancreas/abdomen tomorrow morning To further define if there is a true necrosis Patient is critically sick with a high mortality morbidity If the patient continues to improve I will keep her here if she starts deteriorating will transfer the patient to a tertiary center for further evaluation and management Aggressive management of the Acidemia with atorvastatin 80 mg p.o. as well as fenofibrate 145 mg p.o. dietary consult for hypertriglyceridemia Thank you very much for the opportunity to participate Time Spent With Patient Time: Total time spent is greater than 50% in coordination of care (as documented) at patient's floor/unit and/or counseling patient:
[2024-09-22] MEDS: ATORVASTATIN CALCIUM 20 MG TABLET 80 MG PO (21:52)
--- NOTE | 2024-09-22 22:41 | PC.NURSE ---
Noted fine tremors/shaking to patient bilateral hands, notified Dr Lopez, no new orders/interventions, care continued.
[2024-09-23] VITALS (7 sets, daily range): BP systolic 110–157; BP diastolic 76–102; PULSE 65–128; RESP 13–98; TEMP 36.1–36.8; O2SAT 94–99
[2024-09-23] MEDS: ONDANSETRON INJ 2 MG/ML INJ 2 ML 4 MG IVP ×2 (00:21→16:43)
[2024-09-23] MEDS: MORPHINE SULF INJ 10 MG/ML VIAL 4 MG IVP (00:21)
[2024-09-23] MEDS: SODIUM CHLORIDE 0.9% 1000 ML 1,000 ML 100 ML IV ×2 (03:22→11:32)
[2024-09-23] MEDS: HYDROmorphone INJ 2 MG/ML VIAL IVP ×4 (04:29→22:23)
[2024-09-23] MEDS: SIMETHICONE 80 MG CHEW PO (04:30)
[2024-09-23] MEDS: PROMETHAZINE HCL 25 MG TABLET PO ×2 (04:30→11:38)
[2024-09-23 05:47] LABS: Basophils # (Auto) 0.0 Thou/mm3 (0.0-0.2); Basophils % (Auto) 0 % (0-2.5); Eosinophils # (Auto) 0.1 Thou/mm3 (0.0-0.5); Eosinophils % (Auto) 1 % (0-10); Hematocrit 31.2 % (36.0-46.0); Hemoglobin 9.7 g/dL (12.0-16.0); Immature Granulocytes Auto 0.04 Thou/mm3 (0.00-0.00); Lymphocytes # (Auto) 0.9 Thou/mm3 (1.0-4.8); Lymphocytes % (Auto) 11 % (10-50); Mean Corpuscular HGB Conc 31.1 g/dl (31.0-37.0); Mean Corpuscular Hemoglobin 24.6 pg (25.0-35.0); Mean Corpuscular Volume 79 fL (80-100); Monocytes # (Auto) 0.6 Thou/mm3 (0.0-0.8); Monocytes % (Auto) 7 % (0-12); Neutrophils # (Auto) 6.2 Thou/mm3 (1.8-7.7); Neutrophils % (Auto) 80 % (37-80); Nucleated Red Blood Cell # 0.00 Thou/mm3 (0.00-0.00); Nucleated Red Blood Cell % 0 /100 WBC (0); Platelet Count 248 Thou/mm3 (140-440); RDW Standard Deviation 45.5 fL (36.4-46.3); Red Blood Count 3.95 Miln/mm3 (4.00-5.20); White Blood Count 7.7 Thou/mm3 (3.6-11.0)
[2024-09-23 06:24] LABS: Alanine Aminotransferase 14 U/L (10-49); Albumin, Serum 3.5 gm/dL (3.5-5.0); Albumin/Globulin Ratio 1.5 (1.2-2.2); Alkaline Phosphatase 63 U/L (46-116); Anion Gap 8 (7-16); Aspartate Amino Transferase 39 U/L (0-34); BUN/Creatinine Ratio 23 Ratio (12-20); Bilirubin,Total 0.5 mg/dL (0.3-1.2); Blood Urea Nitrogen 21 mg/dL (9-23); Calcium 8.0 mg/dL (8.3-10.6); Calcium (Corrected) 8.4 mg/dL (8.5-10.1); Carbon Dioxide 25.3 mMol/L (20.0-31.0); Chloride 103 mMol/L (98-107); Creatinine (Component) 0.9 mg/dL (0.6-1.3); Estimated Creatinine Clearance 79.4 mL/min (>60); Globulin 2.4 gm/dL (2.3-3.5); Glucose 148 mg/dL (74-106); Lipase 87 U/L (12-53); Magnesium 2.4 mg/dL (1.6-2.6); Osmolality,Calculated 277 (275-295); Phosphorous 1.1 mg/dL (2.4-5.1); Potassium 3.4 mMol/L (3.4-5.1); Sodium 136 mMol/L (136-145); Total Protein 5.9 gm/dL (5.7-8.2); eGFR > 60 See Note
[2024-09-23] MEDS: POT PHOS 15 mMol in NS 250 ML 15 MMOL/250 ML BAG 62.5 MMOL IV ×2 (08:38→11:32)
[2024-09-23] MEDS: FENOFIBRATE 145 MG TABLET (NON-FORMULARY) PO (08:38)
[2024-09-23] MEDS: HEPARIN SOD INJ 5000 UNIT/ML VIAL SC ×2 (08:38→20:53)
--- NOTE | 2024-09-23 08:52 | ESPR_ITS ---
Documentation for date of: 09/23/24 Subjective Subjective Interval history: Ms Chapin is a 49 yo woman with uncontrolled HTN, who was seen 09/19 in the ED sent by PCP (Dr. Newman) for SBP 200 with symptoms of headache and vision changes. clonidine was given while in the ED, and pt was discharged and instructed to black pickler antihtn meds PCP had refilled to the pharmacy. pt reported that she was working till 7 PM yesterday and was unable to black pickler the medications. pt presented the ED today for epigastric pain that radiates to the right side and to the back. 09/20/2024: pt admitted for acute pancreatitis pt reports that she has gone about 1 month without taking her medications due to running out , found to have severe pancreatitis with necrosis, Triglycerides 3900, Cholesterol 5572Lipase and amylase elevated. procal wnl. GI consulted, NPO pending MRCP 09/21/2024: Pt seen and examined at bedside. Her pain is better controlled, she continues to have belching and dry heaving. PPI started, started fenofibrate, ppi bid and statin. Lipase is downtrending 1159 to 592, amylase is stably elevated 1200, bicarb <10 IV bicarb given, abg ph 7.3, cont to monitor QTC given qt prologing agents, pending MRCP today, PICC line placed pending initiation of PPN, Dietition consulted. 09/22/2024: given calcium gluconate overnight per dr. hill. Patient seen and examined at bedside. she had severe pain this morning and got 2 of dilaudid, and given simethicone. Her nausea and vomiting are improved. Cont on PPI, fenofibrate, and statin. Lipase downtrending today 171 from 592. WBC wnl BP soft 90s/50s holding home antihtn meds d/c bicarb drip (now wnl, and serum gluc elevated to 400s overnight). Start CPN today no fat. 09/23/2024: No overnight events. Patient seen and examined at bedside; they report feeling generally well today with no new complaints or concerns. Notable labs today include Hgb 9.7, corrected calcium 8.4, phosphorus 1.1, lipase downtrended to 87 from 171. From nephrology's standpoint, patient will be started on PPN to replete electrolyte levels. Exam Vital Signs Temp Pulse Resp BP Pulse Ox O2 Del Method 96.9 F 99 16 110/76 95 Room Air 09/23/24 08:00 09/23/24 08:00 09/23/24 08:00 09/23/24 08:00 09/23/24 08:00 09/23/24 08:00 Narrative Exam GENERAL: pt in moderate discomfort 2/2 pain and dry heaving, AAO x3, sitting upright in bed with vomit bag, intermittently belching and dry heaving. HEENT: Head AT/ NC. Mucous membranes dry. PERRL. CARDIOVASCULAR: RRR. Normal S1/S2, +systolic murmor. No pitting edema of bilateral LEs. RESPIRATORY: CTAB. No wheezing, rhonchi, crackles. GASTROINTESTINAL: Abdomen soft, mildly tender to palpation in the epigastrum no palpable masses. Bowel sounds hypoactive. no more heaving and decreased belching. MUSCULOSKELETAL:? No cyanosis or edema, no visible joint swelling. NEUROLOGICAL: CN II-XII grossly intact. No focal deficits. Sensation intact, symmetric. SKIN: pale skin. Objective Labs 09/23/24 04:25 09/23/24 04:25 Labs: Laboratory Results - last 24 hr 09/23/24 04:25 WBC 7.7 RBC 3.95 L Hgb 9.7 L Hct 31.2 L MCV 79 L MCH 24.6 L MCHC 31.1 RDW Std Deviation 45.5 Plt Count 248 Neut % (Auto) 80 Lymph % (Auto) 11 [place] % (Auto) 7 Eos % (Auto) 1 Baso % (Auto) 0 Neut # (Auto) 6.2 Lymph # (Auto) 0.9 L [place] # (Auto) 0.6 Eos # (Auto) 0.1 Baso # (Auto) 0.0 Immature Gran # (Auto) 0.04 H Absolute Nucleated RBC 0.00 Immature Gran % 1 H Nucleated RBC % 0 Sodium 136 Potassium 3.4 Chloride 103 Carbon Dioxide 25.3 Anion Gap 8 BUN 21 Creatinine 0.9 D Estim Creat Clear Calc 79.4 eGFR > 60 BUN/Creatinine Ratio 23 H Glucose 148 H Calculated Osmolality 277 Calcium 8.0 L Corrected Calcium 8.4 L Phosphorus 1.1 L Magnesium 2.4 Total Bilirubin 0.5 AST 39 H ALT 14 Alkaline Phosphatase 63 Total Protein 5.9 Albumin 3.5 Globulin 2.4 Albumin/Globulin Ratio 1.5 Lipase 87 H D ABG Interpretation ABG results: 09/20/24 09/21/24 08:13 12:54 ABG pH 7.33 L ABG pCO2 38 ABG pO2 50 L* ABG HCO3 20 ABG O2 Saturation 86 L ABG Base Excess -5 L VBG pH 7.52 VBG pCO2 25 L D VBG pO2 144 H D VBG Base Excess -1 Quality Measures Quality Measures VTE prophylaxis Assessment & Plan Assessment Current Active Medications: Generic Name Dose Route Start Last Admin Trade Name Freq PRN Reason Stop Dose Admin Atorvastatin Calcium 80 mg 09/21/24 21:00 09/22/24 21:52 Atorvastatin Calcium 20 Mg Tablet PO 10/21/24 20:59 80 mg HS RADHA Administration Diphenhydramine HCl 12.5 mg 09/22/24 13:49 09/22/24 14:37 Diphenhydramine Inj 50 Mg/Ml Vial IVP 10/22/24 13:48 12.5 mg Q4HR PRN Administration ITCHING Fenofibrate 145 mg 09/21/24 10:15 09/23/24 08:38 Fenofibrate 145 Mg Tablet (Non-Formulary) PO 10/21/24 10:14 145 mg QDAY RADHA Administration Heparin Sodium (Porcine) 5,000 unit 09/20/24 21:00 09/23/24 08:38 Heparin Sod Inj 5000 Unit/Ml Vial SC 10/04/24 20:59 5,000 unit Q12HR RADHA Administration Hydralazine HCl 10 mg 09/20/24 11:54 Hydralazine Inj 20 Mg/Ml Vial IVP 10/20/24 11:53 Q6HR PRN SBP>180 Hydromorphone HCl 2 mg 09/20/24 22:19 09/23/24 04:29 Hydromorphone Inj 2 Mg/Ml Vial IVP 09/25/24 15:32 2 mg Q3HR PRN Administration third line for pain, 7-10 Sodium Chloride 1,000 mls @ 100 mls/hr 09/22/24 07:06 09/23/24 03:22 Ns IV 10/22/24 07:05 100 mls/hr .Q10H RADHA Administration Multivitamins/Minerals 10 ml/ 2,010 mls @ 40 mls/hr 09/22/24 18:00 09/23/24 02:16 Amino Acids/Electrolytes IV 09/23/24 17:59 60 mls/hr QDAY@1800 ONE Infusion Potassium Phosphate 15 mmol in 250 mls @ 62.5 mls/hr 09/23/24 07:57 09/23/24 08:38 Pot Phos 15 Mmol In Ns 250 Ml IV 09/23/24 15:56 62.5 mls/hr Q4H RADHA Administration Morphine Sulfate 4 mg 09/21/24 20:51 09/23/24 00:21 Morphine Sulf Inj 10 Mg/Ml Vial IVP 09/26/24 20:50 4 mg Q6HR PRN Administration PAIN SCALE 4-6 (Moderate Ondansetron HCl 4 mg 09/21/24 01:01 09/23/24 00:21 Ondansetron Inj 2 Mg/Ml Inj 2 Ml IVP 10/21/24 01:00 4 mg Q6HR PRN Administration NAUSEA OR VOMITING Protocol Pantoprazole Sodium 40 mg 09/21/24 10:10 09/23/24 08:38 Pantoprazole Inj 40 Mg Vial IVP 10/21/24 10:09 40 mg BID RADHA Administration Promethazine HCl 25 mg 09/21/24 01:02 09/23/24 04:30 Promethazine Hcl 25 Mg Tablet PO 10/21/24 01:01 25 mg Q6HR PRN Administration NAUSEA OR VOMITING Simethicone 80 mg 09/22/24 11:04 09/23/24 04:30 Simethicone 80 Mg Chew PO 10/22/24 11:03 80 mg QID PRN Administration GAS Plan Ms Chapin is a 49 yo woman (PCP Trent) with hx of poorly controlled HTN, seen in the ED yesterday for hypertensive emergency, who presents to ED for epigastric pain that radiates to back, nausea and bilious, non bloody emesis found to have severe pancreatitis with necrosis on CTAP and dilated CBD on US. GI consulted,MRCP completed, pt remains NPO, PICC line in place, CPN to be initiated, discussed with Dietitian. From nephrology's standpoint, patient will be started on Infuvite injection to replete electrolyte levels. #Acute Necrotizing Pancreatititis GI consult rec, close monitoring and possible transfer to tertiary center given necrosis. Dx -leukocytosis downtrended, wnl -lipase downtrending -GI consulted, appreciate recs, -MRCP: Marked edema surrounding the pancreas extending into the abdomen Mild dilatation pancreatic duct Tx - NPO - dc 100ml/hr . PPN initiated - Nausea * Phenergen prn, pt states that this works better for nausea. * Simethicone for bloating or gas PRN- Pain * IV APAP scheduled * IV morpheine 4 q6hr * IV dilaudid 1.5 mg IV q4hr #Nutrition Tryglycerides elevated to 3900 pt NPO given pancreatitis severe. - consult dietition - PICC line placed - plan for CPN D20% AA5% at 40 ml/hr x 8 hrs, then 60 ml/hr for 8 hrs, then advance to goal of 85 ml/hr WITH NO LIPIDS. This provides 2040 ml volume, 102g AA, 408g dextrose, 1795 total calories #Electrolyte derangements - replete Kphos -Start Infuvite injection #Hypertryglyceridemia - Start fenofibrate 145 mg p.o. #HLD - start atorvastatin 80 qhs. #Hypertensive emergency/urgency - resolved bp soft today 90s/50s - HOLD home medications - Hydralizine 10 IV q6 prn #Transaminitis - query 2/2 IV APAP given for pain management #Steatohepatitis #incedental liver mass on imaging - GB US : Liver 14.5 cm fatty infiltration and 11 mm left lobe liver lesion - tumor markers: AFP and CEA wnl Dispo: pt with severe pancreatitis with necrosis, s/p MRCP Marked edema surrounding the pancreas extending into the abdomen. Mild dilatation pancreatic duct. starting on CPN . Lipase downtrending. pain better controlled Diet: NPO Lines: RUE picc line. Bowel Reg: not indicated VTE ppx: heparin 5000 sq q12 hrs GI ppx: protonix IV 40 BID Code status: FULL Plan discussed with nephrology attending Dr. Trent Dexter, DO Internal Medicine, PGY-1 Attending Provider Attestation/Addendum Patient seen and examined with resident physician Dr. Dexter. Note reviewed, agree with findings and recommendations. Patient admitted with acute abdominal pain and noted to have necrotizing pancreatitis. Abdominal pain better with medications. She still has nausea and vomiting. Currently on NPO. PPN was initiated. Appreciate Dr. Hill recommendations. Bicarb significantly low at less than 10. [place].ABG showing pH 7.33, [id number], PO250, HCO3 20. Creatinine elevated at 2.2. Potassium artificially was elevated at 6.1 and repeat was 4.8. Patient was given an amp of bicarb and a bicarb drip was started. Noted Dr. Hill added an amp of calcium gluconate. 09/23/2024 patient resting comfortably. Currently seen in telemetry . abdominal pain tad better. On Dilaudid [id number]. Currently on NPO. Patient has PICC line and is currently receiving PPN. Replace electrolytes. DC IV fluids. Will monitor her renal function and liver enzymes closely. Lipase improving. Patient has severe hypertriglyceridemia. On the Lipitor, fenofibrate. Regarding her blood pressure much better currently. Continue with present management. Hold transfer for now.
--- NOTE | 2024-09-23 15:36 | PC.SS ---
Follow up note: On TPN, IV fluids, replacing electrolytes, on IV pain meds, and control pain. Pt will return home upon dc.
--- NOTE | 2024-09-23 17:45 | PD.IMPROG ---
Documentation for date of: 09/23/24 Subjective Subjective Interval history: Clinically improving Downward trending hemoglobin hematocrit but no signs of any active bleeding Hemoglobin 9.7 hematocrit 31.2 Lipase down to 87 Exam Vital Signs Temp Pulse Resp BP Pulse Ox O2 Del Method 97.8 F 90 17 150/77 H 95 Room Air 09/23/24 16:00 09/23/24 16:00 09/23/24 16:00 09/23/24 16:00 09/23/24 16:00 09/23/24 16:00 Objective Labs 09/23/24 04:25 09/23/24 04:25 Labs: Laboratory Results - last 24 hr 09/23/24 04:25 WBC 7.7 RBC 3.95 L Hgb 9.7 L Hct 31.2 L MCV 79 L MCH 24.6 L MCHC 31.1 RDW Std Deviation 45.5 Plt Count 248 Neut % (Auto) 80 Lymph % (Auto) 11 [place] % (Auto) 7 Eos % (Auto) 1 Baso % (Auto) 0 Neut # (Auto) 6.2 Lymph # (Auto) 0.9 L [place] # (Auto) 0.6 Eos # (Auto) 0.1 Baso # (Auto) 0.0 Immature Gran # (Auto) 0.04 H Absolute Nucleated RBC 0.00 Immature Gran % 1 H Nucleated RBC % 0 Sodium 136 Potassium 3.4 Chloride 103 Carbon Dioxide 25.3 Anion Gap 8 BUN 21 Creatinine 0.9 D Estim Creat Clear Calc 79.4 eGFR > 60 BUN/Creatinine Ratio 23 H Glucose 148 H Calculated Osmolality 277 Calcium 8.0 L Corrected Calcium 8.4 L Phosphorus 1.1 L Magnesium 2.4 Total Bilirubin 0.5 AST 39 H ALT 14 Alkaline Phosphatase 63 Total Protein 5.9 Albumin 3.5 Globulin 2.4 Albumin/Globulin Ratio 1.5 Lipase 87 H D Impressions Impression: Hypertriglyceridemia induced severe pancreatitis with peripancreatic edema Improving leukocytosis On PPN Continue current management ABG Interpretation ABG results: 09/20/24 09/21/24 08:13 12:54 ABG pH 7.33 L ABG pCO2 38 ABG pO2 50 L* ABG HCO3 20 ABG O2 Saturation 86 L ABG Base Excess -5 L VBG pH 7.52 VBG pCO2 25 L D VBG pO2 144 H D VBG Base Excess -1 Assessment & Plan A&P Narrative # Acute pancreatitis hyperglycemia induced with severe peripancreatic edema as well as possible acute necrosis although her bicarb level is improving and white count has mildly gone up to 14.2 most likely because of the inflammatory response Suggestions n.p.o. at repeat CBC CMP amylase lipase tomorrow morning MRI of the pancreas/abdomen tomorrow morning To further define if there is a true necrosis Patient is critically sick with a high mortality morbidity If the patient continues to improve I will keep her here if she starts deteriorating will transfer the patient to a tertiary center for further evaluation and management Aggressive management of the Acidemia with atorvastatin 80 mg p.o. as well as fenofibrate 145 mg p.o. dietary consult for hypertriglyceridemia Thank you very much for the opportunity to participate Time Spent With Patient Time: Total time spent is greater than 50% in coordination of care (as documented) at patient's floor/unit and/or counseling patient:
[2024-09-23] MEDS: CALCIUM GLUCONATE IV (18:36)
[2024-09-23] MEDS: [UNRECOGNIZED DRUG - OTHER] IV (18:36)
[2024-09-23] MEDS: MULTIVITAMIN IV (18:36)
[2024-09-23] MEDS: THIAMINE IV (18:36)
[2024-09-23] MEDS: ATORVASTATIN CALCIUM 20 MG TABLET 80 MG PO (20:52)
[2024-09-24] VITALS (7 sets, daily range): BP systolic 138–163; BP diastolic 74–94; PULSE 91–110; RESP 13–18; TEMP 36.1–36.6; O2SAT 97–100; BMI 31.6
--- NOTE | 2024-09-24 02:06 | PC.NURSE ---
notified MD of patient unable to have bowel movement. per chart patient has no bowel movement charted since 09/19/2024. MD to assess chart and place medication for constipation
[2024-09-24] MEDS: HYDROmorphone INJ 2 MG/ML VIAL IVP ×5 (02:21→20:32)
[2024-09-24 05:44] LABS: Basophils # (Auto) 0.1 Thou/mm3 (0.0-0.2); Basophils % (Auto) 1 % (0-2.5); Eosinophils # (Auto) 0.1 Thou/mm3 (0.0-0.5); Eosinophils % (Auto) 1 % (0-10); Hematocrit 30.2 % (36.0-46.0); Hemoglobin 9.2 g/dL (12.0-16.0); Immature Granulocytes Auto 0.09 Thou/mm3 (0.00-0.00); Lymphocytes # (Auto) 0.8 Thou/mm3 (1.0-4.8); Lymphocytes % (Auto) 7 % (10-50); Mean Corpuscular HGB Conc 30.5 g/dl (31.0-37.0); Mean Corpuscular Hemoglobin 25.1 pg (25.0-35.0); Mean Corpuscular Volume 82 fL (80-100); Monocytes # (Auto) 1.2 Thou/mm3 (0.0-0.8); Monocytes % (Auto) 10 % (0-12); Neutrophils # (Auto) 9.3 Thou/mm3 (1.8-7.7); Neutrophils % (Auto) 81 % (37-80); Nucleated Red Blood Cell # 0.00 Thou/mm3 (0.00-0.00); Nucleated Red Blood Cell % 0 /100 WBC (0); Platelet Count 254 Thou/mm3 (140-440); RDW Standard Deviation 47.4 fL (36.4-46.3); Red Blood Count 3.67 Miln/mm3 (4.00-5.20); White Blood Count 11.6 Thou/mm3 (3.6-11.0)
[2024-09-24 06:33] LABS: Alanine Aminotransferase 13 U/L (10-49); Albumin, Serum 3.4 gm/dL (3.5-5.0); Albumin/Globulin Ratio 1.4 (1.2-2.2); Alkaline Phosphatase 73 U/L (46-116); Anion Gap 9 (7-16); Aspartate Amino Transferase 30 U/L (0-34); BUN/Creatinine Ratio 21 Ratio (12-20); Bilirubin,Total 0.4 mg/dL (0.3-1.2); Blood Urea Nitrogen 15 mg/dL (9-23); Calcium 8.5 mg/dL (8.3-10.6); Calcium (Corrected) 9.0 mg/dL (8.5-10.1); Carbon Dioxide 27.2 mMol/L (20.0-31.0); Chloride 102 mMol/L (98-107); Creatinine (Component) 0.7 mg/dL (0.6-1.3); Estimated Creatinine Clearance 102.1 mL/min (>60); Globulin 2.4 gm/dL (2.3-3.5); Glucose 182 mg/dL (74-106); Lipase 65 U/L (12-53); Magnesium 1.6 mg/dL (1.6-2.6); Osmolality,Calculated 281 (275-295); Phosphorous 1.8 mg/dL (2.4-5.1); Potassium 4.0 mMol/L (3.4-5.1); Sodium 138 mMol/L (136-145); Total Protein 5.8 gm/dL (5.7-8.2); eGFR > 60 See Note
[2024-09-24] MEDS: ONDANSETRON INJ 2 MG/ML INJ 2 ML 4 MG IVP ×2 (06:46→19:59)
[2024-09-24] MEDS: HEPARIN SOD INJ 5000 UNIT/ML VIAL SC ×2 (09:57→20:33)
[2024-09-24] MEDS: FENOFIBRATE 145 MG TABLET (NON-FORMULARY) PO (09:59)
[2024-09-24] MEDS: SENNA/DOCUSATE SOD 1 TAB TABLET PO (09:59)
[2024-09-24] MEDS: FUROSEMIDE INJ 10 MG/ML VIAL 2 ML 20 MG IVP (11:21)
--- NOTE | 2024-09-24 11:21 | ESPR_ITS ---
Documentation for date of: 09/24/24 Subjective Subjective Interval history: Ms Chapin is a 49 yo woman with uncontrolled HTN, who was seen 09/19 in the ED sent by PCP (Dr. Newman) for SBP 200 with symptoms of headache and vision changes. clonidine was given while in the ED, and pt was discharged and instructed to sisal picker antihtn meds PCP had refilled to the pharmacy. pt reported that she was working till 7 PM yesterday and was unable to sisal picker the medications. pt presented the ED today for epigastric pain that radiates to the right side and to the back. 09/20/2024: pt admitted for acute pancreatitis pt reports that she has gone about 1 month without taking her medications due to running out , found to have severe pancreatitis with necrosis, Triglycerides 3900, Cholesterol 5572Lipase and amylase elevated. procal wnl. GI consulted, NPO pending MRCP 09/21/2024: Pt seen and examined at bedside. Her pain is better controlled, she continues to have belching and dry heaving. PPI started, started fenofibrate, ppi bid and statin. Lipase is downtrending 1159 to 592, amylase is stably elevated 1200, bicarb <10 IV bicarb given, abg ph 7.3, cont to monitor QTC given qt prologing agents, pending MRCP today, PICC line placed pending initiation of PPN, Dietition consulted. 09/22/2024: given calcium gluconate overnight per dr. hill. Patient seen and examined at bedside. she had severe pain this morning and got 2 of dilaudid, and given simethicone. Her nausea and vomiting are improved. Cont on PPI, fenofibrate, and statin. Lipase downtrending today 171 from 592. WBC wnl BP soft 90s/50s holding home antihtn meds d/c bicarb drip (now wnl, and serum gluc elevated to 400s overnight). Start CPN today no fat. 09/23/2024: No overnight events. Patient seen and examined at bedside; they report feeling generally well today with no new complaints or concerns. Notable labs today include Hgb 9.7, corrected calcium 8.4, phosphorus 1.1, lipase downtrended to 87 from 171. From nephrology's standpoint, patient will be started on PPN to replete electrolyte levels. 09/24/2024: No overnight events. Patient seen and examined at bedside; she continues to endorse abdominal pain but say that it is improved. She also appears more fluid overloaded today which the patient herself agreed with. Notable labs today include: WBC bump to 11.6 from 7.7, hemoglobin 9.2, blood glucose 182, phosphorus 1.8, magnesium 1.6, and lipase drop to 65 from 87. GI has been consulted and recommended an MRI w/o contrast of the pancreas/abdomen to further define if there is a true necrosis and also suggested that if the patient starts to deteriorate that she be transferred to a tertiary center for further evaluation and management. We have ordered the MRI as GI recommended as well as ordered IV Lasix 20 mg x1 and decreased PPN to 60 mL/hr due to patient's fluid status today. Exam Vital Signs Temp Pulse Resp BP Pulse Ox O2 Del Method 97.7 F 105 H 14 160/94 H 100 Room Air 09/24/24 08:00 09/24/24 08:00 09/24/24 08:00 09/24/24 08:00 09/24/24 08:00 09/24/24 08:00 Narrative Exam GENERAL: Patient in no acute distress, A&O x3, sitting upright in bed HEENT: Head AT/ NC. PERRL. CARDIOVASCULAR: 1+ pitting edema of bilateral LE. RRR. Normal S1/S2, +systolic murmur. RESPIRATORY: CTAB. No wheezing, rhonchi, crackles. GASTROINTESTINAL: Abdomen soft, mildly tender to palpation in the epigastrum no palpable masses. Bowel sounds hypoactive. no more heaving and decreased belching. MUSCULOSKELETAL:? Appears more generally edematous today. No cyanosis, no visible joint swelling. NEUROLOGICAL: CN II-XII grossly intact. No focal deficits. Sensation intact, symmetric. SKIN: pale skin. Objective Labs 09/24/24 04:44 09/24/24 04:44 Labs: Laboratory Results - last 24 hr 09/24/24 04:44 WBC 11.6 H D RBC 3.67 L Hgb 9.2 L Hct 30.2 L MCV 82 MCH 25.1 MCHC 30.5 L RDW Std Deviation 47.4 H Plt Count 254 Neut % (Auto) 81 H Lymph % (Auto) 7 L [place] % (Auto) 10 Eos % (Auto) 1 Baso % (Auto) 1 Neut # (Auto) 9.3 H Lymph # (Auto) 0.8 L [place] # (Auto) 1.2 H Eos # (Auto) 0.1 Baso # (Auto) 0.1 Immature Gran # (Auto) 0.09 H Absolute Nucleated RBC 0.00 Immature Gran % 1 H Nucleated RBC % 0 Sodium 138 Potassium 4.0 D Chloride 102 Carbon Dioxide 27.2 Anion Gap 9 BUN 15 Creatinine 0.7 Estim Creat Clear Calc 102.1 eGFR > 60 BUN/Creatinine Ratio 21 H Glucose 182 H Calculated Osmolality 281 Calcium 8.5 Corrected Calcium 9.0 Phosphorus 1.8 L Magnesium 1.6 Total Bilirubin 0.4 AST 30 ALT 13 Alkaline Phosphatase 73 Total Protein 5.8 Albumin 3.4 L Globulin 2.4 Albumin/Globulin Ratio 1.4 Lipase 65 H D ABG Interpretation ABG results: 09/20/24 09/21/24 08:13 12:54 ABG pH 7.33 L ABG pCO2 38 ABG pO2 50 L* ABG HCO3 20 ABG O2 Saturation 86 L ABG Base Excess -5 L VBG pH 7.52 VBG pCO2 25 L D VBG pO2 144 H D VBG Base Excess -1 Quality Measures Quality Measures VTE prophylaxis Assessment & Plan Assessment Current Active Medications: Generic Name Dose Route Start Last Admin Trade Name Freq PRN Reason Stop Dose Admin Atorvastatin Calcium 80 mg 09/21/24 21:00 09/23/24 20:52 Atorvastatin Calcium 20 Mg Tablet PO 10/21/24 20:59 80 mg HS RADHA Administration Diphenhydramine HCl 12.5 mg 09/22/24 13:49 09/22/24 14:37 Diphenhydramine Inj 50 Mg/Ml Vial IVP 10/22/24 13:48 12.5 mg Q4HR PRN Administration ITCHING Fenofibrate 145 mg 09/21/24 10:15 09/24/24 09:59 Fenofibrate 145 Mg Tablet (Non-Formulary) PO 10/21/24 10:14 145 mg QDAY RADHA Administration Heparin Sodium (Porcine) 5,000 unit 09/20/24 21:00 09/24/24 09:57 Heparin Sod Inj 5000 Unit/Ml Vial SC 10/04/24 20:59 5,000 unit Q12HR RADHA Administration Hydralazine HCl 10 mg 09/20/24 11:54 Hydralazine Inj 20 Mg/Ml Vial IVP 10/20/24 11:53 Q6HR PRN SBP>180 Hydromorphone HCl 2 mg 09/20/24 22:19 09/24/24 06:45 Hydromorphone Inj 2 Mg/Ml Vial IVP 09/25/24 15:32 2 mg Q3HR PRN Administration third line for pain, 7-10 Multivitamins/Minerals 10 ml/ 2,031 mls @ 60 mls/hr 09/24/24 18:00 Calcium Gluconate 1 gm/ IV 09/26/24 03:50 Thiamine HCl 100 mg/ Potassium QDAY@1800 ONE Acetate 20 meq/ Amino Acids/ Electrolytes Protocol Morphine Sulfate 4 mg 09/21/24 20:51 09/23/24 00:21 Morphine Sulf Inj 10 Mg/Ml Vial IVP 09/26/24 20:50 4 mg Q6HR PRN Administration PAIN SCALE 4-6 (Moderate Ondansetron HCl 4 mg 09/21/24 01:01 09/24/24 06:46 Ondansetron Inj 2 Mg/Ml Inj 2 Ml IVP 10/21/24 01:00 4 mg Q6HR PRN Administration NAUSEA OR VOMITING Protocol Pantoprazole Sodium 40 mg 09/21/24 10:10 09/24/24 10:02 Pantoprazole Inj 40 Mg Vial IVP 10/21/24 10:09 40 mg BID RADHA Administration Promethazine HCl 25 mg 09/21/24 01:02 09/23/24 11:38 Promethazine Hcl 25 Mg Tablet PO 10/21/24 01:01 25 mg Q6HR PRN Administration NAUSEA OR VOMITING Sennosides 1 tab 09/24/24 09:00 09/24/24 09:59 Senna/Docusate Sod 1 Tab Tablet PO 10/24/24 08:59 1 tab QDAY RADHA Administration Protocol Simethicone 80 mg 09/22/24 11:04 09/23/24 04:30 Simethicone 80 Mg Chew PO 10/22/24 11:03 80 mg QID PRN Administration GAS Plan Ms Chapin is a 49 yo woman (PCP Trent) with hx of poorly controlled HTN who presented to the ED for epigastric pain that radiates to back, nausea and bilious, non bloody emesis found to have severe pancreatitis with necrosis on CTAP and dilated CBD on US. GI has been consulted and recommended an MRI w/o contrast of the pancreas/abdomen to further define if there is a true necrosis and also suggested that if the patient starts to deteriorate that she be transferred to a tertiary center for further evaluation and management. We have ordered the MRI as GI recommended as well as ordered IV Lasix 20 mg x1 and decreased PPN to 60 mL/hr due to patient's fluid status today. #Acute Necrotizing Pancreatititis GI consult rec, close monitoring and possible transfer to tertiary center given necrosis. Dx -leukocytosis downtrended, wnl -lipase downtrending -GI consulted, appreciate recs -MRCP: Marked edema surrounding the pancreas extending into the abdomen Mild dilatation pancreatic duct -Ordered an MRI w/o contrast of the pancreas/abdomen to further define if there is a true necrosis Tx - NPO - dc 100ml/hr PPN initiated - Nausea * Phenergen prn, pt states that this works better for nausea. * Simethicone for bloating or gas PRN- Pain * IV APAP scheduled * IV morpheine 4 q6hr * IV dilaudid 1.5 mg IV q4hr #Nutrition Triglycerides elevated to 3900 pt NPO given pancreatitis severe. - consult dietition - PICC line placed - Reduced CPN D20% AA5% from 85 mL/hr to 60 ml/hr due to patient's increased fluid status today -Gave IV Lasix 20 mg x1 today (09/24/2024) for increased fluid status #Electrolyte derangements - replete Kphos -Continue Infuvite injection #Hypertryglyceridemia - Continue fenofibrate 145 mg p.o. #HLD -Continue atorvastatin 80 qhs. #Hypertensive emergency/urgency - resolved - HOLD home medications - Hydralizine 10 IV q6 prn #Transaminitis - query 2/2 IV APAP given for pain management #Steatohepatitis #incedental liver mass on imaging - [facility] US : Liver 14.5 cm fatty infiltration and 11 mm left lobe liver lesion - tumor markers: AFP and CEA wnl Dispo: pt with severe pancreatitis with necrosis, s/p MRCP Marked edema surrounding the pancreas extending into the abdomen. Mild dilatation pancreatic duct. starting on CPN . Lipase downtrending. pain better controlled Diet: NPO Lines: RUE picc line. Bowel Reg: not indicated VTE ppx: heparin 5000 sq q12 hrs GI ppx: protonix IV 40 BID Code status: FULL Plan discussed with nephrology attending Dr. Trent Dexter, DO Internal Medicine, PGY-1 Attending Provider Attestation/Addendum Patient seen and examined with resident physician Dr. Dexter. Note reviewed, agree with findings and recommendations. Patient admitted with acute abdominal pain and noted to have necrotizing pancreatitis. Abdominal pain better with medications. She still has nausea and vomiting. Currently on NPO. PPN was initiated. Appreciate Dr. Hill recommendations. Bicarb significantly low at less than 10. [place].ABG showing pH 7.33, [id number], PO250, HCO3 20. Creatinine elevated at 2.2. Potassium artificially was elevated at 6.1 and repeat was 4.8. Patient was given an amp of bicarb and a bicarb drip was started. Noted Dr. Hill added an amp of calcium gluconate. 09/24/2024 patient resting comfortably. Currently seen in telemetry . abdominal pain tad better. On Dilaudid [id number]. Currently on NPO. Patient has PICC line and is currently receiving PPN. Will decrease rate to 50 mL/h. 1 dose of Lasix given as patient seems to be fluid overloaded. Replace electrolytes. DC IV fluids. Will monitor her renal function and liver enzymes closely. Lipase improving. Patient has severe hypertriglyceridemia. On the Lipitor, fenofibrate. Regarding her blood pressure much better currently. Continue with present management. Hold transfer for now. Per Dr. Hill request MRI was ordered. However MRI not completed due to extreme anxiety. Will try to give Ativan tomorrow and retry. Spoke to Dr. Hill.
--- NOTE | 2024-09-24 14:12 | PC.NURSE ---
Dr. Newman notified that patient was unable to complete MRI due to anxiety, will also follow up with Dr. Joyner
--- NOTE | 2024-09-24 17:02 | ESPR_ITS ---
Documentation for date of: 09/24/24 Subjective Subjective Interval history: Patient on fenofibrate and atorvastatin Lipase is down to 65 CO2 21 WBC count 11.6 with a hemoglobin hematocrit 9.2 and 30.2 Clinically improving Exam Vital Signs Temp Pulse Resp BP Pulse Ox O2 Del Method 97.4 F 91 16 140/74 H 100 Room Air 09/24/24 16:00 09/24/24 16:00 09/24/24 16:00 09/24/24 16:00 09/24/24 16:00 09/24/24 16:00 Objective Labs 09/24/24 04:44 09/24/24 04:44 Labs: Laboratory Results - last 24 hr 09/24/24 04:44 WBC 11.6 H D RBC 3.67 L Hgb 9.2 L Hct 30.2 L MCV 82 MCH 25.1 MCHC 30.5 L RDW Std Deviation 47.4 H Plt Count 254 Neut % (Auto) 81 H Lymph % (Auto) 7 L [place] % (Auto) 10 Eos % (Auto) 1 Baso % (Auto) 1 Neut # (Auto) 9.3 H Lymph # (Auto) 0.8 L [place] # (Auto) 1.2 H Eos # (Auto) 0.1 Baso # (Auto) 0.1 Immature Gran # (Auto) 0.09 H Absolute Nucleated RBC 0.00 Immature Gran % 1 H Nucleated RBC % 0 Sodium 138 Potassium 4.0 D Chloride 102 Carbon Dioxide 27.2 Anion Gap 9 BUN 15 Creatinine 0.7 Estim Creat Clear Calc 102.1 eGFR > 60 BUN/Creatinine Ratio 21 H Glucose 182 H Calculated Osmolality 281 Calcium 8.5 Corrected Calcium 9.0 Phosphorus 1.8 L Magnesium 1.6 Total Bilirubin 0.4 AST 30 ALT 13 Alkaline Phosphatase 73 Total Protein 5.8 Albumin 3.4 L Globulin 2.4 Albumin/Globulin Ratio 1.4 Lipase 65 H D Impressions Impression: Acute hypertriglyceridemia induced pancreatitis Continue atorvastatin and fenofibrate and continue PPN ABG Interpretation ABG results: 09/20/24 09/21/24 08:13 12:54 ABG pH 7.33 L ABG pCO2 38 ABG pO2 50 L* ABG HCO3 20 ABG O2 Saturation 86 L ABG Base Excess -5 L VBG pH 7.52 VBG pCO2 25 L D VBG pO2 144 H D VBG Base Excess -1 Assessment & Plan A&P Narrative # Acute pancreatitis hyperglycemia induced with severe peripancreatic edema as well as possible acute necrosis although her bicarb level is improving and white count has mildly gone up to 14.2 most likely because of the inflammatory response Suggestions n.p.o. at repeat CBC CMP amylase lipase tomorrow morning MRI of the pancreas/abdomen tomorrow morning To further define if there is a true necrosis Patient is critically sick with a high mortality morbidity If the patient continues to improve I will keep her here if she starts deteriorating will transfer the patient to a tertiary center for further evaluation and management Aggressive management of the Acidemia with atorvastatin 80 mg p.o. as well as fenofibrate 145 mg p.o. dietary consult for hypertriglyceridemia Thank you very much for the opportunity to participate Time Spent With Patient Time: Total time spent is greater than 50% in coordination of care (as documented) at patient's floor/unit and/or counseling patient:
[2024-09-24] MEDS: THIAMINE IV (17:54)
[2024-09-24] MEDS: MAGNESIUM SULF IV (17:54)
[2024-09-24] MEDS: [UNRECOGNIZED DRUG - OTHER] IV (17:54)
[2024-09-24] MEDS: MULTIVITAMIN IV (17:54)
[2024-09-24] MEDS: ATORVASTATIN CALCIUM 20 MG TABLET 80 MG PO (20:33)
[2024-09-25] VITALS (8 sets, daily range): BP systolic 121–182; BP diastolic 69–97; PULSE 90–107; RESP 16–27; TEMP 36.1–36.9; O2SAT 96–99
[2024-09-25] MEDS: PROMETHAZINE HCL 25 MG TABLET PO ×2 (00:04→20:10)
[2024-09-25] MEDS: HYDROmorphone INJ 2 MG/ML VIAL IVP ×5 (00:04→20:11)
[2024-09-25] MEDS: ONDANSETRON INJ 2 MG/ML INJ 2 ML 4 MG IVP ×3 (04:08→16:22)
[2024-09-25 06:12] LABS: Basophils # (Auto) 0.1 Thou/mm3 (0.0-0.2); Basophils % (Auto) 0 % (0-2.5); Eosinophils # (Auto) 0.2 Thou/mm3 (0.0-0.5); Eosinophils % (Auto) 2 % (0-10); Hematocrit 31.8 % (36.0-46.0); Hemoglobin 9.2 g/dL (12.0-16.0); Immature Granulocytes Auto 0.27 Thou/mm3 (0.00-0.00); Lymphocytes # (Auto) 0.9 Thou/mm3 (1.0-4.8); Lymphocytes % (Auto) 7 % (10-50); Mean Corpuscular HGB Conc 28.9 g/dl (31.0-37.0); Mean Corpuscular Hemoglobin 24.6 pg (25.0-35.0); Mean Corpuscular Volume 85 fL (80-100); Monocytes # (Auto) 1.3 Thou/mm3 (0.0-0.8); Monocytes % (Auto) 10 % (0-12); Neutrophils # (Auto) 9.4 Thou/mm3 (1.8-7.7); Neutrophils % (Auto) 78 % (37-80); Nucleated Red Blood Cell # 0.05 Thou/mm3 (0.00-0.00); Nucleated Red Blood Cell % 0 /100 WBC (0); Platelet Count 183 Thou/mm3 (140-440); RDW Standard Deviation 50.7 fL (36.4-46.3); Red Blood Count 3.74 Miln/mm3 (4.00-5.20); White Blood Count 12.1 Thou/mm3 (3.6-11.0)
[2024-09-25] MEDS: HEPARIN SOD INJ 5000 UNIT/ML VIAL SC ×2 (09:51→22:25)
[2024-09-25] MEDS: SENNA/DOCUSATE SOD 1 TAB TABLET PO (09:51)
[2024-09-25] MEDS: FENOFIBRATE 145 MG TABLET (NON-FORMULARY) PO (09:51)
--- NOTE | 2024-09-25 10:54 | XR_ITS ---
Examination: AP chest single view Technique one AP portable semiupright chest single view Date and time: September 25, 2024 1112 hrs., Comparison December 21, 2021 Indications: Volume overload Findings: Mild enlargement cardiac contour Moderate vascular congestion. No lobar pneumonia or pulmonary edema. Moderate elevation right hemidiaphragm. Right dual-lumen PICC line tip SVC Impression: Moderate vascular congestion.
--- NOTE | 2024-09-25 11:06 | ESPR_ITS ---
Documentation for date of: 09/25/24 Subjective Subjective Interval history: Ms Chapin is a 49 yo woman with uncontrolled HTN, who was seen 09/19 in the ED sent by PCP (Dr. Newman) for SBP 200 with symptoms of headache and vision changes. 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 pt presented the ED today for epigastric pain that radiates to the right side and to the back. 09/20/2024: pt admitted for acute pancreatitis pt reports that she has gone about 1 month without taking her medications due to running out , found to have severe pancreatitis with necrosis, Triglycerides 3900, Cholesterol 5572Lipase and amylase elevated. procal wnl. GI consulted, NPO pending MRCP 09/21/2024: Pt seen and examined at bedside. Her pain is better controlled, she continues to have belching and dry heaving. PPI started, started fenofibrate, ppi bid and statin. Lipase is downtrending 1159 to 592, amylase is stably elevated 1200, bicarb <10 IV bicarb given, abg ph 7.3, cont to monitor QTC given qt prologing agents, pending MRCP today, PICC line placed pending initiation of PPN, Dietition consulted. 09/22/2024: given calcium gluconate overnight per dr. hill. Patient seen and examined at bedside. she had severe pain this morning and got 2 of dilaudid, and given simethicone. Her nausea and vomiting are improved. Cont on PPI, fenofibrate, and statin. Lipase downtrending today 171 from 592. WBC wnl BP soft 90s/50s holding home antihtn meds d/c bicarb drip (now wnl, and serum gluc elevated to 400s overnight). Start CPN today no fat. 09/23/2024: No overnight events. Patient seen and examined at bedside; they report feeling generally well today with no new complaints or concerns. Notable labs today include Hgb 9.7, corrected calcium 8.4, phosphorus 1.1, lipase downtrended to 87 from 171. From nephrology's standpoint, patient will be started on PPN to replete electrolyte levels. 09/24/2024: No overnight events. Patient seen and examined at bedside; she continues to endorse abdominal pain but say that it is improved. She also appears more fluid overloaded today which the patient herself agreed with. Notable labs today include: WBC bump to 11.6 from 7.7, hemoglobin 9.2, blood glucose 182, phosphorus 1.8, magnesium 1.6, and lipase drop to 65 from 87. GI has been consulted and recommended an MRI w/o contrast of the pancreas/abdomen to further define if there is a true necrosis and also suggested that if the patient starts to deteriorate that she be transferred to a tertiary center for further evaluation and management. We have ordered the MRI as GI recommended as well as ordered IV Lasix 20 mg x1 and decreased PPN to 60 mL/hr due to patient's fluid status today. 09/25/2024: Patient seen and examined at bedside. intermittent belching, she is anxious about the MRI. mildly tachycardic to 100s, WBC 12.1 from 11.6, hgb stable at 9.2, BUN 10, Cr 0.6, Mg 1.4, Phos 2.2, Triglycerides down 525 from 3900, Lipase 33 from 65. plan to reattemt MRI with ativan and dilaudid given before scan, she continues on ppn, start metoprolol 25 succs qd . Exam Vital Signs Temp Pulse Resp BP Pulse Ox O2 Del Method 98.4 F 93 18 160/69 H 97 Room Air 09/25/24 08:00 09/25/24 08:00 09/25/24 08:00 09/25/24 08:00 09/25/24 08:00 09/25/24 08:00 Narrative Exam GENERAL: Patient in no acute distress, A&O x3, sitting upright in bed, anxious HEENT: Head AT/ NC. PERRL. CARDIOVASCULAR: trace edema of bilateral LE. tachycardic, regular rhythm. Normal S1/S2, +systolic murmur. RESPIRATORY: CTAB. No wheezing, rhonchi, crackles. GASTROINTESTINAL: Abdomen soft, mildly tender to palpation in the epigastrum no palpable masses. Bowel sounds hypoactive. intermittent belching MUSCULOSKELETAL:? No cyanosis, no visible joint swelling. NEUROLOGICAL: CN II-XII grossly intact. No focal deficits. Sensation intact, symmetric. SKIN: pale skin. Objective Labs 09/25/24 04:50 09/25/24 11:04 Labs: Laboratory Results - last 24 hr 09/25/24 04:50 WBC 12.1 H RBC 3.74 L Hgb 9.2 L Hct 31.8 L MCV 85 MCH 24.6 L MCHC 28.9 L RDW Std Deviation 50.7 H Plt Count 183 D Neut % (Auto) 78 Lymph % (Auto) 7 L [place] % (Auto) 10 Eos % (Auto) 2 Baso % (Auto) 0 Neut # (Auto) 9.4 H Lymph # (Auto) 0.9 L [place] # (Auto) 1.3 H Eos # (Auto) 0.2 Baso # (Auto) 0.1 Immature Gran # (Auto) 0.27 H Absolute Nucleated RBC 0.05 H Immature Gran % 2 H Nucleated RBC % 0 ABG Interpretation ABG results: 09/20/24 09/21/24 08:13 12:54 ABG pH 7.33 L ABG pCO2 38 ABG pO2 50 L* ABG HCO3 20 ABG O2 Saturation 86 L ABG Base Excess -5 L VBG pH 7.52 VBG pCO2 25 L D VBG pO2 144 H D VBG Base Excess -1 Quality Measures Quality Measures VTE prophylaxis Assessment & Plan Assessment Current Active Medications: Generic Name Dose Route Start Last Admin Trade Name Freq PRN Reason Stop Dose Admin Atorvastatin Calcium 80 mg 09/21/24 21:00 09/24/24 20:33 Atorvastatin Calcium 20 Mg Tablet PO 10/21/24 20:59 80 mg HS RADHA Administration Diphenhydramine HCl 12.5 mg 09/22/24 13:49 09/22/24 14:37 Diphenhydramine Inj 50 Mg/Ml Vial IVP 10/22/24 13:48 12.5 mg Q4HR PRN Administration ITCHING Fenofibrate 145 mg 09/21/24 10:15 09/25/24 09:51 Fenofibrate 145 Mg Tablet (Non-Formulary) PO 10/21/24 10:14 145 mg QDAY RADHA Administration Heparin Sodium (Porcine) 5,000 unit 09/20/24 21:00 09/25/24 09:51 Heparin Sod Inj 5000 Unit/Ml Vial SC 10/04/24 20:59 5,000 unit Q12HR RADHA Administration Hydralazine HCl 10 mg 09/20/24 11:54 Hydralazine Inj 20 Mg/Ml Vial IVP 10/20/24 11:53 Q6HR PRN SBP>180 Hydromorphone HCl 2 mg 09/20/24 22:19 09/25/24 09:50 Hydromorphone Inj 2 Mg/Ml Vial IVP 09/25/24 15:32 2 mg Q3HR PRN Administration third line for pain, 7-10 Multivitamins/Minerals 10 ml/ 2,020 mls @ 60 mls/hr 09/24/24 18:00 09/24/24 17:54 Thiamine HCl 100 mg/ Magnesium IV 09/25/24 17:59 60 mls/hr Sulfate 2 gm/ Potassium QDAY@1800 RADHA Administration Phosphate 15 mmol/ Amino Acids /Electrolytes Protocol Metoprolol Succinate 25 mg 09/25/24 11:15 Metoprolol Succinate Xl 25 Mg Tabcr PO 10/25/24 11:14 QDAY RADHA Morphine Sulfate 4 mg 09/21/24 20:51 09/23/24 00:21 Morphine Sulf Inj 10 Mg/Ml Vial IVP 09/26/24 20:50 4 mg Q6HR PRN Administration PAIN SCALE 4-6 (Moderate Ondansetron HCl 4 mg 09/21/24 01:01 09/25/24 09:54 Ondansetron Inj 2 Mg/Ml Inj 2 Ml IVP 10/21/24 01:00 4 mg Q6HR PRN Administration NAUSEA OR VOMITING Protocol Pantoprazole Sodium 40 mg 09/21/24 10:10 09/25/24 09:50 Pantoprazole Inj 40 Mg Vial IVP 10/21/24 10:09 40 mg BID RADHA Administration Promethazine HCl 25 mg 09/21/24 01:02 09/25/24 00:04 Promethazine Hcl 25 Mg Tablet PO 10/21/24 01:01 25 mg Q6HR PRN Administration NAUSEA OR VOMITING Sennosides 1 tab 09/24/24 09:00 09/25/24 09:51 Senna/Docusate Sod 1 Tab Tablet PO 10/24/24 08:59 1 tab QDAY RADHA Administration Protocol Simethicone 80 mg 09/22/24 11:04 09/23/24 04:30 Simethicone 80 Mg Chew PO 10/22/24 11:03 80 mg QID PRN Administration GAS Plan Ms Chapin is a 49 yo woman (PCP Trent) with hx of poorly controlled HTN who presented to the ED for epigastric pain that radiates to back, nausea and bilious, non bloody emesis found to have severe pancreatitis with necrosis on CTAP and dilated CBD on US. GI has been consulted and recommended an MRI w/o contrast of the pancreas/abdomen to further define if there is a true necrosis and also suggested that if the patient starts to deteriorate that she be transferred to a tertiary center for further evaluation and management. MRI pending, pt is anxious, will attempt with ativan before scan. #Acute Necrotizing Pancreatititis GI consult rec, close monitoring and possible transfer to tertiary center given necrosis. Dx -leukocytosis downtrended, wnl -lipase downtrending -GI consulted, appreciate recs -MRCP: Marked edema surrounding the pancreas extending into the abdomen Mild dilatation pancreatic duct -pending an MRI w/o contrast of the pancreas/abdomen to further define if there is a true necrosis (give ativan and dilaudid prior to scan. Tx - NPO - cont ppn, monitor for volume overload - Nausea * Phenergen prn, pt states that this works better for nausea. * Simethicone for bloating or gas PRN- Pain * IV morpheine 4 q6hr * IV dilaudid 1.5 mg IV q4hr #Nutrition Triglycerides elevated to 3900 pt NPO given pancreatitis severe. - consult dietition - PICC line placed - Reduced CPN D20% AA5% from 85 mL/hr to 60 ml/hr due to patient's increased fluid status today -Gave IV Lasix 20 mg x1 today (09/24/2024) for increased fluid status - CXR with moderate vascular congestion #Electrolyte derangements - pharmacy to replete in PPN #Hypertryglyceridemia- improving - Continue fenofibrate 145 mg p.o. #HLD -Continue atorvastatin 80 qhs. #Hypertensive emergency/urgency - resolved on 09/25 sbp 160s - HOLD home medications - Hydralizine 10 IV q6 prn #Sinus tachycardia query 2/2 anxiety surrounding pending MRI vs pain pt expresses anxiety surrounding MRI and clausterphobia - start metoprolol succs 25 qd #Transaminitis - query 2/2 IV APAP given for pain management #Steatohepatitis #incedental liver mass on imaging - GB US : Liver 14.5 cm fatty infiltration and 11 mm left lobe liver lesion - tumor markers: AFP and CEA wnl Dispo: pt with severe pancreatitis with necrosis. lipase downtrending, pending MRI per GI recs. Diet: NPO Lines: RUE picc line. Bowel Reg: not indicated VTE ppx: heparin 5000 sq q12 hrs GI ppx: protonix IV 40 BID Code status: FULL Plan discussed with nephrology attending Dr. Trent Sterling MD Internal Medicine PGY-1 Attending Provider Attestation/Addendum Patient seen and examined with resident physician Dr. Dexter. Note reviewed, agree with findings and recommendations. Patient admitted with acute abdominal pain and noted to have necrotizing pancreatitis. Abdominal pain better with medications. She still has nausea and vomiting. Currently on NPO. PPN was initiated. Appreciate Dr. Hill recommendations. Bicarb significantly low at less than 10. [place].ABG showing pH 7.33, XVH232, PO250, HCO3 20. Creatinine elevated at 2.2. Potassium artificially was elevated at 6.1 and repeat was 4.8. Patient was given an amp of bicarb and a bicarb drip was started. Noted Dr. Hill added an amp of calcium gluconate. 09/25/2024 patient resting comfortably. Currently seen in telemetry . Abdominal pain tad better. On Dilaudid [id number]. Currently on NPO. Patient has PICC line and is currently receiving PPN. Will decrease rate to 50 mL/h. Replace electrolytes. DC IV fluids. Will monitor her renal function and liver enzymes closely. Lipase improving. Patient has severe hypertriglyceridemia. On the Lipitor, fenofibrate. Regarding her blood pressure much better currently. Continue with present management. Per Dr. Hill request MRI was ordered. However MRI not completed due to extreme anxiety. Will try to give Ativan and retry. Spoke to Dr. Hill. Will start transfer to higher level of care-necrotizing pancreatitis.
[2024-09-25 11:48] LABS: Alanine Aminotransferase 18 U/L (10-49); Albumin, Serum 3.7 gm/dL (3.5-5.0); Albumin/Globulin Ratio 1.4 (1.2-2.2); Alkaline Phosphatase 96 U/L (46-116); Anion Gap 10 (7-16); Aspartate Amino Transferase 34 U/L (0-34); BUN/Creatinine Ratio 23 Ratio (12-20); Bilirubin,Total 0.5 mg/dL (0.3-1.2); Blood Urea Nitrogen 14 mg/dL (9-23); Calcium 9.2 mg/dL (8.3-10.6); Calcium (Corrected) 9.4 mg/dL (8.5-10.1); Carbon Dioxide 28.2 mMol/L (20.0-31.0); Cardiac Risk Estimate 15.2 RATIO (3.7-5.6); Chloride 99 mMol/L (98-107); Cholesterol 167 mg/dL (132-200); Creatinine (Component) 0.6 mg/dL (0.6-1.3); Estimated Creatinine Clearance 119.2 mL/min (>60); Globulin 2.7 gm/dL (2.3-3.5); Glucose 147 mg/dL (74-106); HDL Cholesterol 11 mg/dL (40-60); Lipase 33 U/L (12-53); Magnesium 1.4 mg/dL (1.6-2.6); Osmolality,Calculated 277 (275-295); Phosphorous 2.2 mg/dL (2.4-5.1); Potassium 3.6 mMol/L (3.4-5.1); Sodium 137 mMol/L (136-145); Total Protein 6.4 gm/dL (5.7-8.2); Triglycerides 525 mg/dL (30-150); eGFR > 60 See Note
[2024-09-25] MEDS: Magnesium Sulfate 2 GM Ivpb 50 ML IV (12:58)
[2024-09-25] MEDS: METOPROLOL SUCCINATE XL 25 MG TABCR PO (12:58)
[2024-09-25] MEDS: hydrALAZINE INJ 20 MG/ML VIAL 10 MG IVP (16:21)
--- NOTE | 2024-09-25 17:01 | PC.NURSE ---
09/25/24 16:30 I went into pt. room to change pt and pt. bed. Daughter stated that it did not needed o be done and her mother the pt. was sleeping after getting meds and it was fine. That i did not need to worry about it. I then told the that it if changed her mind. to use the call light and let us know. I then let Ang the RN and Haley the RN aware of the conversation.
[2024-09-25] MEDS: THIAMINE IV (18:07)
[2024-09-25] MEDS: MAGNESIUM SULF IV (18:07)
[2024-09-25] MEDS: [UNRECOGNIZED DRUG - OTHER] IV (18:07)
[2024-09-25] MEDS: MULTIVITAMIN IV (18:07)
[2024-09-25] MEDS: POTASSIUM PHOS 22.5 MMOL in SODIUM CHLORIDE 0.9% 500 ML 500 ML 82.778 MMOL IV (18:08)
--- NOTE | 2024-09-25 19:30 | PC.NURSE ---
16:30 preceptor AXEL [address]. medeiros and dr. hill regarding maryther's request to transfer to [facility]. Dr. Hill state he will see the family this evening.
--- NOTE | 2024-09-25 20:02 | ESPR_ITS ---
Documentation for date of: 09/25/24 Subjective Subjective Interval history: Patient in quite a bit of pain I met with the family the daughter Kia telephone #[phone] I answered all their questions in the presence of the attending RN Most of their issues were related to nursing care as well as the abdominal pain and the pain medication I told him the following Calcium has normalized to 9.4 Triglyceride down to 552 Lipase is down to normal Hemoglobin hematocrit stabilized at 9.2 and 31.8 Issue remains of severe abdominal pain Patient is n.p.o. On PPN Patient is going to get an MRI scan of the abdomen particular attention to the pancreas with and without contrast tomorrow morning Particularly look for any necrosis If there is necrosis that would transfer the patient to [facility] Exam Vital Signs Temp Pulse Resp BP Pulse Ox O2 Del Method 98.2 F 92 27 H 182/92 H 97 Room Air 09/25/24 16:00 09/25/24 16:21 09/25/24 16:00 09/25/24 16:21 09/25/24 16:00 09/25/24 16:00 Constitutional Comments: Alert oriented Routine Respiratory Exam Comments: Normal to auscultation Routine Abdominal Exam Comments: Midepigastric tenderness positive bowel sounds Objective Labs 09/25/24 04:50 09/25/24 11:04 Labs: Laboratory Results - last 24 hr 09/25/24 09/25/24 09/25/24 04:50 11:04 11:04 WBC 12.1 H RBC 3.74 L Hgb 9.2 L Hct 31.8 L MCV 85 MCH 24.6 L MCHC 28.9 L RDW Std Deviation 50.7 H Plt Count 183 D Neut % (Auto) 78 Lymph % (Auto) 7 L [place] % (Auto) 10 Eos % (Auto) 2 Baso % (Auto) 0 Neut # (Auto) 9.4 H Lymph # (Auto) 0.9 L [place] # (Auto) 1.3 H Eos # (Auto) 0.2 Baso # (Auto) 0.1 Immature Gran # (Auto) 0.27 H Absolute Nucleated RBC 0.05 H Immature Gran % 2 H Nucleated RBC % 0 Sodium Cancelled 137 Potassium Cancelled Chloride Carbon Dioxide Anion Gap BUN Creatinine Estim Creat Clear Calc eGFR BUN/Creatinine Ratio Glucose Calculated Osmolality Calcium Corrected Calcium Phosphorus Magnesium Total Bilirubin AST ALT Alkaline Phosphatase Total Protein Albumin Globulin Albumin/Globulin Ratio Triglycerides Cholesterol LDL Cholesterol, Calc HDL Cholesterol Cholesterol/HDL Ratio Lipase 09/25/24 09/25/24 09/25/24 11:04 11:04 11:04 WBC RBC Hgb Hct MCV MCH MCHC RDW Std Deviation Plt Count Neut % (Auto) Lymph % (Auto) [place] % (Auto) Eos % (Auto) Baso % (Auto) Neut # (Auto) Lymph # (Auto) [place] # (Auto) Eos # (Auto) Baso # (Auto) Immature Gran # (Auto) Absolute Nucleated RBC Immature Gran % Nucleated RBC % Sodium Potassium 3.6 Chloride Cancelled 99 Carbon Dioxide Cancelled 28.2 Anion Gap Cancelled BUN Creatinine Estim Creat Clear Calc eGFR BUN/Creatinine Ratio Glucose Calculated Osmolality Calcium Corrected Calcium Phosphorus Magnesium Total Bilirubin AST ALT Alkaline Phosphatase Total Protein Albumin Globulin Albumin/Globulin Ratio Triglycerides Cholesterol LDL Cholesterol, Calc HDL Cholesterol Cholesterol/HDL Ratio Lipase 09/25/24 09/25/24 09/25/24 11:04 11:04 11:04 WBC RBC Hgb Hct MCV MCH MCHC RDW Std Deviation Plt Count Neut % (Auto) Lymph % (Auto) [place] % (Auto) Eos % (Auto) Baso % (Auto) Neut # (Auto) Lymph # (Auto) [place] # (Auto) Eos # (Auto) Baso # (Auto) Immature Gran # (Auto) Absolute Nucleated RBC Immature Gran % Nucleated RBC % Sodium Potassium Chloride Carbon Dioxide Anion Gap 10 BUN Cancelled 14 Creatinine Cancelled 0.6 Estim Creat Clear Calc Cancelled eGFR BUN/Creatinine Ratio Glucose Calculated Osmolality Calcium Corrected Calcium Phosphorus Magnesium Total Bilirubin AST ALT Alkaline Phosphatase Total Protein Albumin Globulin Albumin/Globulin Ratio Triglycerides Cholesterol LDL Cholesterol, Calc HDL Cholesterol Cholesterol/HDL Ratio Lipase 09/25/24 09/25/24 09/25/24 11:04 11:04 11:04 WBC RBC Hgb Hct MCV MCH MCHC RDW Std Deviation Plt Count Neut % (Auto) Lymph % (Auto) [place] % (Auto) Eos % (Auto) Baso % (Auto) Neut # (Auto) Lymph # (Auto) [place] # (Auto) Eos # (Auto) Baso # (Auto) Immature Gran # (Auto) Absolute Nucleated RBC Immature Gran % Nucleated RBC % Sodium Potassium Chloride Carbon Dioxide Anion Gap BUN Creatinine Estim Creat Clear Calc 119.2 eGFR Cancelled > 60 BUN/Creatinine Ratio Cancelled 23 H Glucose Cancelled Calculated Osmolality Calcium Corrected Calcium Phosphorus Magnesium Total Bilirubin AST ALT Alkaline Phosphatase Total Protein Albumin Globulin Albumin/Globulin Ratio Triglycerides Cholesterol LDL Cholesterol, Calc HDL Cholesterol Cholesterol/HDL Ratio Lipase 09/25/24 09/25/24 09/25/24 11:04 11:04 11:04 WBC RBC Hgb Hct MCV MCH MCHC RDW Std Deviation Plt Count Neut % (Auto) Lymph % (Auto) [place] % (Auto) Eos % (Auto) Baso % (Auto) Neut # (Auto) Lymph # (Auto) [place] # (Auto) Eos # (Auto) Baso # (Auto) Immature Gran # (Auto) Absolute Nucleated RBC Immature Gran % Nucleated RBC % Sodium Potassium Chloride Carbon Dioxide Anion Gap BUN Creatinine Estim Creat Clear Calc eGFR BUN/Creatinine Ratio Glucose 147 H Calculated Osmolality Cancelled 277 Calcium Cancelled 9.2 Corrected Calcium Cancelled Phosphorus Magnesium Total Bilirubin AST ALT Alkaline Phosphatase Total Protein Albumin Globulin Albumin/Globulin Ratio Triglycerides Cholesterol LDL Cholesterol, Calc HDL Cholesterol Cholesterol/HDL Ratio Lipase 09/25/24 09/25/24 09/25/24 11:04 11:04 11:04 WBC RBC Hgb Hct MCV MCH MCHC RDW Std Deviation Plt Count Neut % (Auto) Lymph % (Auto) [place] % (Auto) Eos % (Auto) Baso % (Auto) Neut # (Auto) Lymph # (Auto) [place] # (Auto) Eos # (Auto) Baso # (Auto) Immature Gran # (Auto) Absolute Nucleated RBC Immature Gran % Nucleated RBC % Sodium Potassium Chloride Carbon Dioxide Anion Gap BUN Creatinine Estim Creat Clear Calc eGFR BUN/Creatinine Ratio Glucose Calculated Osmolality Calcium Corrected Calcium 9.4 Phosphorus Cancelled 2.2 L Magnesium Cancelled 1.4 L Total Bilirubin Cancelled AST ALT Alkaline Phosphatase Total Protein Albumin Globulin Albumin/Globulin Ratio Triglycerides Cholesterol LDL Cholesterol, Calc HDL Cholesterol Cholesterol/HDL Ratio Lipase 09/25/24 09/25/24 09/25/24 11:04 11:04 11:04 WBC RBC Hgb Hct MCV MCH MCHC RDW Std Deviation Plt Count Neut % (Auto) Lymph % (Auto) [place] % (Auto) Eos % (Auto) Baso % (Auto) Neut # (Auto) Lymph # (Auto) [place] # (Auto) Eos # (Auto) Baso # (Auto) Immature Gran # (Auto) Absolute Nucleated RBC Immature Gran % Nucleated RBC % Sodium Potassium Chloride Carbon Dioxide Anion Gap BUN Creatinine Estim Creat Clear Calc eGFR BUN/Creatinine Ratio Glucose Calculated Osmolality Calcium Corrected Calcium Phosphorus Magnesium Total Bilirubin 0.5 AST Cancelled 34 ALT Cancelled 18 Alkaline Phosphatase Cancelled Total Protein Albumin Globulin Albumin/Globulin Ratio Triglycerides Cholesterol LDL Cholesterol, Calc HDL Cholesterol Cholesterol/HDL Ratio Lipase 09/25/24 09/25/24 09/25/24 11:04 11:04 11:04 WBC RBC Hgb Hct MCV MCH MCHC RDW Std Deviation Plt Count Neut % (Auto) Lymph % (Auto) [place] % (Auto) Eos % (Auto) Baso % (Auto) Neut # (Auto) Lymph # (Auto) [place] # (Auto) Eos # (Auto) Baso # (Auto) Immature Gran # (Auto) Absolute Nucleated RBC Immature Gran % Nucleated RBC % Sodium Potassium Chloride Carbon Dioxide Anion Gap BUN Creatinine Estim Creat Clear Calc eGFR BUN/Creatinine Ratio Glucose Calculated Osmolality Calcium Corrected Calcium Phosphorus Magnesium Total Bilirubin AST ALT Alkaline Phosphatase 96 D Total Protein Cancelled 6.4 Albumin Cancelled 3.7 Globulin Cancelled Albumin/Globulin Ratio Triglycerides Cholesterol LDL Cholesterol, Calc HDL Cholesterol Cholesterol/HDL Ratio Lipase 09/25/24 09/25/24 09/25/24 11:04 11:04 11:04 WBC RBC Hgb Hct MCV MCH MCHC RDW Std Deviation Plt Count Neut % (Auto) Lymph % (Auto) [place] % (Auto) Eos % (Auto) Baso % (Auto) Neut # (Auto) Lymph # (Auto) [place] # (Auto) Eos # (Auto) Baso # (Auto) Immature Gran # (Auto) Absolute Nucleated RBC Immature Gran % Nucleated RBC % Sodium Potassium Chloride Carbon Dioxide Anion Gap BUN Creatinine Estim Creat Clear Calc eGFR BUN/Creatinine Ratio Glucose Calculated Osmolality Calcium Corrected Calcium Phosphorus Magnesium Total Bilirubin AST ALT Alkaline Phosphatase Total Protein Albumin Globulin 2.7 Albumin/Globulin Ratio Cancelled 1.4 Triglycerides Cancelled 525 H Cholesterol Cancelled LDL Cholesterol, Calc HDL Cholesterol Cholesterol/HDL Ratio Lipase 09/25/24 09/25/24 09/25/24 11:04 11:04 11:04 WBC RBC Hgb Hct MCV MCH MCHC RDW Std Deviation Plt Count Neut % (Auto) Lymph % (Auto) [place] % (Auto) Eos % (Auto) Baso % (Auto) Neut # (Auto) Lymph # (Auto) [place] # (Auto) Eos # (Auto) Baso # (Auto) Immature Gran # (Auto) Absolute Nucleated RBC Immature Gran % Nucleated RBC % Sodium Potassium Chloride Carbon Dioxide Anion Gap BUN Creatinine Estim Creat Clear Calc eGFR BUN/Creatinine Ratio Glucose Calculated Osmolality Calcium Corrected Calcium Phosphorus Magnesium Total Bilirubin AST ALT Alkaline Phosphatase Total Protein Albumin Globulin Albumin/Globulin Ratio Triglycerides Cholesterol 167 LDL Cholesterol, Calc Cancelled TNP HDL Cholesterol Cancelled 11 L Cholesterol/HDL Ratio Cancelled Lipase 09/25/24 09/25/24 11:04 11:04 WBC RBC Hgb Hct MCV MCH MCHC RDW Std Deviation Plt Count Neut % (Auto) Lymph % (Auto) [place] % (Auto) Eos % (Auto) Baso % (Auto) Neut # (Auto) Lymph # (Auto) [place] # (Auto) Eos # (Auto) Baso # (Auto) Immature Gran # (Auto) Absolute Nucleated RBC Immature Gran % Nucleated RBC % Sodium Potassium Chloride Carbon Dioxide Anion Gap BUN Creatinine Estim Creat Clear Calc eGFR BUN/Creatinine Ratio Glucose Calculated Osmolality Calcium Corrected Calcium Phosphorus Magnesium Total Bilirubin AST ALT Alkaline Phosphatase Total Protein Albumin Globulin Albumin/Globulin Ratio Triglycerides Cholesterol LDL Cholesterol, Calc HDL Cholesterol Cholesterol/HDL Ratio 15.2 H Lipase Cancelled 33 D Impressions Impression: # Acute severe pancreatitis induced by hypertriglyceridemia Rule out necrosis of the pancreas MRI scan of the pancreas with and without contrast scheduled for tomorrow After that I will make a decision whether the patient stays here or gets transferred to a tertiary center ABG Interpretation ABG results: 09/20/24 09/21/24 08:13 12:54 ABG pH 7.33 L ABG pCO2 38 ABG pO2 50 L* ABG HCO3 20 ABG O2 Saturation 86 L ABG Base Excess -5 L VBG pH 7.52 VBG pCO2 25 L D VBG pO2 144 H D VBG Base Excess -1 Assessment & Plan A&P Narrative # Acute pancreatitis hyperglycemia induced with severe peripancreatic edema as well as possible acute necrosis although her bicarb level is improving and white count has mildly gone up to 14.2 most likely because of the inflammatory response Suggestions n.p.o. at repeat CBC CMP amylase lipase tomorrow morning MRI of the pancreas/abdomen tomorrow morning To further define if there is a true necrosis Patient is critically sick with a high mortality morbidity If the patient continues to improve I will keep her here if she starts deteriorating will transfer the patient to a tertiary center for further evaluation and management Aggressive management of the Acidemia with atorvastatin 80 mg p.o. as well as fenofibrate 145 mg p.o. dietary consult for hypertriglyceridemia Thank you very much for the opportunity to participate Time Spent With Patient Time: Total time spent is greater than 50% in coordination of care (as documented) at patient's floor/unit and/or counseling patient:
[2024-09-25] MEDS: ATORVASTATIN CALCIUM 20 MG TABLET 80 MG PO ×2 (20:10→22:22)
[2024-09-26] VITALS (8 sets, daily range): BP systolic 125–164; BP diastolic 66–97; PULSE 4–86; RESP 14–23; TEMP 36.2–36.6; O2SAT 95–97; BMI 34.3
--- NOTE | 2024-09-26 | XR_ITS ---
Examination: MRI abdomen with intravenous contrast. MRI abdomen without intravenous contrast. Date and time of exam: September 26, 2024 1154 hours INDICATIONS: Abdominal pain this month, elevated lipase, severe acute pancreatitis on MR study September 21, 2024, bilious nausea Technique: Multiple axial, sagittal and coronal sections of the abdomen obtained. Transverse images, TR 6020, TE 107. T1 weighted transverse images, TR 582, TE 9.5. T2-weighted sagittal images, TR 4000, TE 105. T2-weighted sagittal images, TR 4000, TE 5. Coronal images, TR 4210, TE 107. Axial and coronal images are obtained post 20 cc intravenous injection, gadolinium. Findings: No focal liver lesions Gallbladder is not visualized No common hepatic or common bile duct stones, common hepatic duct 6 mm Edema surrounding the pancreas, no pseudocyst, there is significant necrosis of the pancreas Edema extends into the lower abdomen, no hydronephrosis No abnormal enhancing liver or splenic or renal lesions Patient motion degrades scan image quality IMPRESSION: Acute pancreatitis Significant necrosis of the pancreas
[2024-09-26] MEDS: ONDANSETRON INJ 2 MG/ML INJ 2 ML 4 MG IVP ×3 (01:48→16:54)
[2024-09-26] MEDS: HYDROmorphone INJ 2 MG/ML VIAL IVP ×5 (01:48→21:30)
[2024-09-26 06:23] LABS: Basophils # (Auto) 0.1 Thou/mm3 (0.0-0.2); Basophils % (Auto) 1 % (0-2.5); Eosinophils # (Auto) 0.3 Thou/mm3 (0.0-0.5); Eosinophils % (Auto) 2 % (0-10); Hematocrit 28.6 % (36.0-46.0); Immature Granulocytes Auto 0.62 Thou/mm3 (0.00-0.00); Lymphocytes # (Auto) 1.2 Thou/mm3 (1.0-4.8); Lymphocytes % (Auto) 9 % (10-50); Mean Corpuscular HGB Conc 30.1 g/dl (31.0-37.0); Mean Corpuscular Hemoglobin 24.9 pg (25.0-35.0); Mean Corpuscular Volume 83 fL (80-100); Monocytes # (Auto) 1.4 Thou/mm3 (0.0-0.8); Monocytes % (Auto) 11 % (0-12); Neutrophils # (Auto) 8.8 Thou/mm3 (1.8-7.7); Neutrophils % (Auto) 72 % (37-80); Nucleated Red Blood Cell # 0.07 Thou/mm3 (0.00-0.00); Nucleated Red Blood Cell % 1 /100 WBC (0); Platelet Count 279 Thou/mm3 (140-440); RDW Standard Deviation 49.0 fL (36.4-46.3); Red Blood Count 3.46 Miln/mm3 (4.00-5.20); White Blood Count 12.2 Thou/mm3 (3.6-11.0)
--- NOTE | 2024-09-26 06:33 | ESPR_ITS ---
Documentation for date of: 09/26/24 Subjective Subjective Interval history: Ms Chapin is a 49 yo woman with uncontrolled HTN, who was seen 09/19 in the ED sent by PCP (Dr. Newman) for SBP 200 with symptoms of headache and vision changes. 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 pt presented the ED today for epigastric pain that radiates to the right side and to the back. 09/20/2024: pt admitted for acute pancreatitis pt reports that she has gone about 1 month without taking her medications due to running out , found to have severe pancreatitis with necrosis, Triglycerides 3900, Cholesterol 5572Lipase and amylase elevated. procal wnl. GI consulted, NPO pending MRCP 09/21/2024: Pt seen and examined at bedside. Her pain is better controlled, she continues to have belching and dry heaving. PPI started, started fenofibrate, ppi bid and statin. Lipase is downtrending 1159 to 592, amylase is stably elevated 1200, bicarb <10 IV bicarb given, abg ph 7.3, cont to monitor QTC given qt prologing agents, pending MRCP today, PICC line placed pending initiation of PPN, Dietition consulted. 09/22/2024: given calcium gluconate overnight per dr. hill. Patient seen and examined at bedside. she had severe pain this morning and got 2 of dilaudid, and given simethicone. Her nausea and vomiting are improved. Cont on PPI, fenofibrate, and statin. Lipase downtrending today 171 from 592. WBC wnl BP soft 90s/50s holding home antihtn meds d/c bicarb drip (now wnl, and serum gluc elevated to 400s overnight). Start CPN today no fat. 09/23/2024: No overnight events. Patient seen and examined at bedside; they report feeling generally well today with no new complaints or concerns. Notable labs today include Hgb 9.7, corrected calcium 8.4, phosphorus 1.1, lipase downtrended to 87 from 171. From nephrology's standpoint, patient will be started on PPN to replete electrolyte levels. 09/24/2024: No overnight events. Patient seen and examined at bedside; she continues to endorse abdominal pain but say that it is improved. She also appears more fluid overloaded today which the patient herself agreed with. Notable labs today include: WBC bump to 11.6 from 7.7, hemoglobin 9.2, blood glucose 182, phosphorus 1.8, magnesium 1.6, and lipase drop to 65 from 87. GI has been consulted and recommended an MRI w/o contrast of the pancreas/abdomen to further define if there is a true necrosis and also suggested that if the patient starts to deteriorate that she be transferred to a tertiary center for further evaluation and management. We have ordered the MRI as GI recommended as well as ordered IV Lasix 20 mg x1 and decreased PPN to 60 mL/hr due to patient's fluid status today. 09/25/2024: Patient seen and examined at bedside. intermittent belching, she is anxious about the MRI. mildly tachycardic to 100s, WBC 12.1 from 11.6, hgb stable at 9.2, BUN 10, Cr 0.6, Mg 1.4, Phos 2.2, Triglycerides down 525 from 3900, Lipase 33 from 65. plan to reattemt MRI with ativan and dilaudid given before scan, she continues on ppn, start metoprolol 25 succs qd. 09/26/2024: No overnight events. Patient seen and examined at bedside; they report feeling anxious and claustrophobic regarding the MRI and, as a result, did not have it performed yesterday. Patient's daughter was also present during the visit and wanted to know the plan moving forwards. Notable labs today include: Hgb 8.6 and blood glucose 164. Currently, the plan moving forward is to continue pursuing the MRI w/ and w/o contrast ordered by Dr. Hill to assess for true necrosis of the pancreas and possible need for a transfer to a tertiary center for more specialized care. This will be attempted again with the aid of the patient being on Dilaudid and Ativan to see if she can tolerate the imaging this time around. We will also move forward with a CT abdomen since that imaging modality is more amenable to the patient and it could still offer some insight as to the current status of her pancreas. Exam Vital Signs Temp Pulse Resp BP Pulse Ox O2 Del Method 97.2 F 86 20 125/66 95 Room Air 09/26/24 04:00 09/26/24 04:00 09/26/24 04:00 09/26/24 04:00 09/26/24 04:00 09/26/24 04:00 Narrative Exam GENERAL: Slightly somnolent. Patient in no acute distress, A&O x3, sitting upright in bed HEENT: Head AT/ NC. PERRL. CARDIOVASCULAR: trace edema of bilateral LE. tachycardic, regular rhythm. Normal S1/S2, +systolic murmur. RESPIRATORY: CTAB. No wheezing, rhonchi, crackles. GASTROINTESTINAL: Abdomen soft, mildly tender to palpation in the epigastrum no palpable masses. Bowel sounds hypoactive. MUSCULOSKELETAL:? No cyanosis, no visible joint swelling. NEUROLOGICAL: CN II-XII grossly intact. No focal deficits. Sensation intact, symmetric. SKIN: pale skin. Objective Labs 09/26/24 04:50 09/26/24 08:57 Labs: Laboratory Results - last 24 hr 09/25/24 09/25/24 09/25/24 11:04 11:04 11:04 Sodium Cancelled 137 Potassium Cancelled 3.6 Chloride Cancelled Carbon Dioxide Anion Gap BUN Creatinine Estim Creat Clear Calc eGFR BUN/Creatinine Ratio Glucose Calculated Osmolality Calcium Corrected Calcium Phosphorus Magnesium Total Bilirubin AST ALT Alkaline Phosphatase Total Protein Albumin Globulin Albumin/Globulin Ratio Triglycerides Cholesterol LDL Cholesterol, Calc HDL Cholesterol Cholesterol/HDL Ratio Lipase 09/25/24 09/25/24 09/25/24 11:04 11:04 11:04 Sodium Potassium Chloride 99 Carbon Dioxide Cancelled 28.2 Anion Gap Cancelled 10 BUN Cancelled Creatinine Estim Creat Clear Calc eGFR BUN/Creatinine Ratio Glucose Calculated Osmolality Calcium Corrected Calcium Phosphorus Magnesium Total Bilirubin AST ALT Alkaline Phosphatase Total Protein Albumin Globulin Albumin/Globulin Ratio Triglycerides Cholesterol LDL Cholesterol, Calc HDL Cholesterol Cholesterol/HDL Ratio Lipase 09/25/24 09/25/24 09/25/24 11:04 11:04 11:04 Sodium Potassium Chloride Carbon Dioxide Anion Gap BUN 14 Creatinine Cancelled 0.6 Estim Creat Clear Calc Cancelled 119.2 eGFR Cancelled BUN/Creatinine Ratio Glucose Calculated Osmolality Calcium Corrected Calcium Phosphorus Magnesium Total Bilirubin AST ALT Alkaline Phosphatase Total Protein Albumin Globulin Albumin/Globulin Ratio Triglycerides Cholesterol LDL Cholesterol, Calc HDL Cholesterol Cholesterol/HDL Ratio Lipase 09/25/24 09/25/24 09/25/24 11:04 11:04 11:04 Sodium Potassium Chloride Carbon Dioxide Anion Gap BUN Creatinine Estim Creat Clear Calc eGFR > 60 BUN/Creatinine Ratio Cancelled 23 H Glucose Cancelled 147 H Calculated Osmolality Cancelled Calcium Corrected Calcium Phosphorus Magnesium Total Bilirubin AST ALT Alkaline Phosphatase Total Protein Albumin Globulin Albumin/Globulin Ratio Triglycerides Cholesterol LDL Cholesterol, Calc HDL Cholesterol Cholesterol/HDL Ratio Lipase 09/25/24 09/25/24 09/25/24 11:04 11:04 11:04 Sodium Potassium Chloride Carbon Dioxide Anion Gap BUN Creatinine Estim Creat Clear Calc eGFR BUN/Creatinine Ratio Glucose Calculated Osmolality 277 Calcium Cancelled 9.2 Corrected Calcium Cancelled 9.4 Phosphorus Cancelled Magnesium Total Bilirubin AST ALT Alkaline Phosphatase Total Protein Albumin Globulin Albumin/Globulin Ratio Triglycerides Cholesterol LDL Cholesterol, Calc HDL Cholesterol Cholesterol/HDL Ratio Lipase 09/25/24 09/25/24 09/25/24 11:04 11:04 11:04 Sodium Potassium Chloride Carbon Dioxide Anion Gap BUN Creatinine Estim Creat Clear Calc eGFR BUN/Creatinine Ratio Glucose Calculated Osmolality Calcium Corrected Calcium Phosphorus 2.2 L Magnesium Cancelled 1.4 L Total Bilirubin Cancelled 0.5 AST Cancelled ALT Alkaline Phosphatase Total Protein Albumin Globulin Albumin/Globulin Ratio Triglycerides Cholesterol LDL Cholesterol, Calc HDL Cholesterol Cholesterol/HDL Ratio Lipase 09/25/24 09/25/24 09/25/24 11:04 11:04 11:04 Sodium Potassium Chloride Carbon Dioxide Anion Gap BUN Creatinine Estim Creat Clear Calc eGFR BUN/Creatinine Ratio Glucose Calculated Osmolality Calcium Corrected Calcium Phosphorus Magnesium Total Bilirubin AST 34 ALT Cancelled 18 Alkaline Phosphatase Cancelled 96 D Total Protein Cancelled Albumin Globulin Albumin/Globulin Ratio Triglycerides Cholesterol LDL Cholesterol, Calc HDL Cholesterol Cholesterol/HDL Ratio Lipase 09/25/24 09/25/24 09/25/24 11:04 11:04 11:04 Sodium Potassium Chloride Carbon Dioxide Anion Gap BUN Creatinine Estim Creat Clear Calc eGFR BUN/Creatinine Ratio Glucose Calculated Osmolality Calcium Corrected Calcium Phosphorus Magnesium Total Bilirubin AST ALT Alkaline Phosphatase Total Protein 6.4 Albumin Cancelled 3.7 Globulin Cancelled 2.7 Albumin/Globulin Ratio Cancelled Triglycerides Cholesterol LDL Cholesterol, Calc HDL Cholesterol Cholesterol/HDL Ratio Lipase 09/25/24 09/25/24 09/25/24 11:04 11:04 11:04 Sodium Potassium Chloride Carbon Dioxide Anion Gap BUN Creatinine Estim Creat Clear Calc eGFR BUN/Creatinine Ratio Glucose Calculated Osmolality Calcium Corrected Calcium Phosphorus Magnesium Total Bilirubin AST ALT Alkaline Phosphatase Total Protein Albumin Globulin Albumin/Globulin Ratio 1.4 Triglycerides Cancelled 525 H Cholesterol Cancelled 167 LDL Cholesterol, Calc Cancelled HDL Cholesterol Cholesterol/HDL Ratio Lipase 09/25/24 09/25/24 09/25/24 11:04 11:04 11:04 Sodium Potassium Chloride Carbon Dioxide Anion Gap BUN Creatinine Estim Creat Clear Calc eGFR BUN/Creatinine Ratio Glucose Calculated Osmolality Calcium Corrected Calcium Phosphorus Magnesium Total Bilirubin AST ALT Alkaline Phosphatase Total Protein Albumin Globulin Albumin/Globulin Ratio Triglycerides Cholesterol LDL Cholesterol, Calc TNP HDL Cholesterol Cancelled 11 L Cholesterol/HDL Ratio Cancelled 15.2 H Lipase Cancelled 09/25/24 11:04 Sodium Potassium Chloride Carbon Dioxide Anion Gap BUN Creatinine Estim Creat Clear Calc eGFR BUN/Creatinine Ratio Glucose Calculated Osmolality Calcium Corrected Calcium Phosphorus Magnesium Total Bilirubin AST ALT Alkaline Phosphatase Total Protein Albumin Globulin Albumin/Globulin Ratio Triglycerides Cholesterol LDL Cholesterol, Calc HDL Cholesterol Cholesterol/HDL Ratio Lipase 33 D ABG Interpretation ABG results: 09/20/24 09/21/24 08:13 12:54 ABG pH 7.33 L ABG pCO2 38 ABG pO2 50 L* ABG HCO3 20 ABG O2 Saturation 86 L ABG Base Excess -5 L VBG pH 7.52 VBG pCO2 25 L D VBG pO2 144 H D VBG Base Excess -1 Quality Measures Quality Measures VTE prophylaxis Assessment & Plan Assessment Current Active Medications: Generic Name Dose Route Start Last Admin Trade Name Freq PRN Reason Stop Dose Admin Atorvastatin Calcium 80 mg 09/21/24 21:00 09/25/24 22:22 Atorvastatin Calcium 20 Mg Tablet PO 10/21/24 20:59 80 mg HS RADHA Administration Diphenhydramine HCl 12.5 mg 09/22/24 13:49 09/22/24 14:37 Diphenhydramine Inj 50 Mg/Ml Vial IVP 10/22/24 13:48 12.5 mg Q4HR PRN Administration ITCHING Fenofibrate 145 mg 09/21/24 10:15 09/25/24 09:51 Fenofibrate 145 Mg Tablet (Non-Formulary) PO 10/21/24 10:14 145 mg QDAY RADHA Administration Heparin Sodium (Porcine) 5,000 unit 09/20/24 21:00 09/25/24 22:25 Heparin Sod Inj 5000 Unit/Ml Vial SC 10/04/24 20:59 5,000 unit Q12HR RADHA Administration Hydralazine HCl 10 mg 09/20/24 11:54 09/25/24 16:21 Hydralazine Inj 20 Mg/Ml Vial IVP 10/20/24 11:53 10 mg Q6HR PRN Administration SBP>180 Hydromorphone HCl 2 mg 09/20/24 22:19 09/26/24 01:48 Hydromorphone Inj 2 Mg/Ml Vial IVP 09/30/24 22:18 2 mg Q3HR PRN Administration third line for pain, 7-10 Multivitamins/Minerals 10 ml/ 2,020 mls @ 60 mls/hr 09/24/24 18:00 09/25/24 18:07 Thiamine HCl 100 mg/ Magnesium IV 09/26/24 17:59 60 mls/hr Sulfate 2 gm/ Potassium QDAY@1800 RADHA Administration Phosphate 15 mmol/ Amino Acids /Electrolytes Protocol Metoprolol Succinate 25 mg 09/25/24 11:15 09/25/24 12:58 Metoprolol Succinate Xl 25 Mg Tabcr PO 10/25/24 11:14 25 mg QDAY RADHA Administration Morphine Sulfate 4 mg 09/21/24 20:51 09/23/24 00:21 Morphine Sulf Inj 10 Mg/Ml Vial IVP 09/30/24 20:50 4 mg Q6HR PRN Administration PAIN SCALE 4-6 (Moderate Ondansetron HCl 4 mg 09/21/24 01:01 09/26/24 01:48 Ondansetron Inj 2 Mg/Ml Inj 2 Ml IVP 10/21/24 01:00 4 mg Q6HR PRN Administration NAUSEA OR VOMITING Protocol Pantoprazole Sodium 40 mg 09/21/24 10:10 09/25/24 22:25 Pantoprazole Inj 40 Mg Vial IVP 10/21/24 10:09 40 mg BID RADHA Administration Promethazine HCl 25 mg 09/21/24 01:02 09/25/24 20:10 Promethazine Hcl 25 Mg Tablet PO 10/21/24 01:01 25 mg Q6HR PRN Administration NAUSEA OR VOMITING Sennosides 1 tab 09/24/24 09:00 09/25/24 09:51 Senna/Docusate Sod 1 Tab Tablet PO 10/24/24 08:59 1 tab QDAY RADHA Administration Protocol Simethicone 80 mg 09/22/24 11:04 09/23/24 04:30 Simethicone 80 Mg Chew PO 10/22/24 11:03 80 mg QID PRN Administration GAS Plan Ms Chapin is a 49 yo woman (PCP Trent) with hx of poorly controlled HTN who presented to the ED for epigastric pain that radiates to back, nausea and bilious, non bloody emesis found to have severe pancreatitis with necrosis on CTAP and dilated CBD on US. Currently, the plan moving forward is to continue pursuing the MRI w/ and w/o contrast ordered by Dr. Hill to assess for true necrosis of the pancreas and possible need for a transfer to a tertiary center for more specialized care. This will be attempted again with the aid of the patient being on Dilaudid and Ativan to see if she can tolerate the imaging this time around. We will also move forward with a CT abdomen since that imaging modality is more amenable to the patient and it could still offer some insight as to the current status of her pancreas. #Acute Necrotizing Pancreatititis GI consult rec, close monitoring and possible transfer to tertiary center given necrosis. Dx -leukocytosis downtrended, wnl -lipase downtrending -GI consulted, appreciate recs -MRCP: Marked edema surrounding the pancreas extending into the abdomen Mild dilatation pancreatic duct -pending an MRI w/o contrast of the pancreas/abdomen to further define if there is a true necrosis (give ativan and dilaudid prior to scan -Ordered a CTAP to further assess the degree of necrosis of the pancreas Tx - NPO - cont ppn, monitor for volume overload - Nausea * Phenergen prn, pt states that this works better for nausea. * Simethicone for bloating or gas PRN- Pain * IV morpheine 4 q6hr * IV dilaudid 1.5 mg IV q4hr #Nutrition Triglycerides elevated to 3900 pt NPO given pancreatitis severe. - consult dietition - PICC line placed - Continue CPN D20% AA5% @ 50 mL/hr - CXR with moderate vascular congestion #Electrolyte derangements - pharmacy to replete in PPN #Hypertryglyceridemia- improving - Continue fenofibrate 145 mg p.o. #HLD -Continue atorvastatin 80 qhs. #Hypertensive emergency/urgency - resolved on 09/25 sbp 160s - HOLD home medications - Hydralizine 10 IV q6 prn #Sinus tachycardia query 2/2 anxiety surrounding pending MRI vs pain pt expresses anxiety surrounding MRI and claustrophobia - start metoprolol succs 25 qd #Transaminitis - query 2/2 IV APAP given for pain management #Steatohepatitis #incedental liver mass on imaging - GB US : Liver 14.5 cm fatty infiltration and 11 mm left lobe liver lesion - tumor markers: AFP and CEA wnl Dispo: pt with severe pancreatitis with necrosis. lipase downtrending, pending MRI per GI recs and CTAP. Diet: NPO Lines: RUE picc line. Bowel Reg: not indicated VTE ppx: heparin 5000 sq q12 hrs GI ppx: protonix IV 40 BID Code status: FULL Plan discussed with nephrology attending Dr. Trent Dexter, DO Internal Medicine, PGY-1 Attending Provider Attestation/Addendum Patient seen and examined with resident physician Dr. Dexter. Note reviewed, agree with findings and recommendations. Patient admitted with acute abdominal pain and noted to have necrotizing pancreatitis. Abdominal pain better with medications. She still has nausea and vomiting. Currently on NPO. PPN was initiated. Appreciate Dr. Hill recommendations. Bicarb significantly low at less than 10. [place].ABG showing pH 7.33, YCN102, PO250, HCO3 20. Creatinine elevated at 2.2. Potassium artificially was elevated at 6.1 and repeat was 4.8. Patient was given an amp of bicarb and a bicarb drip was started. Noted Dr. Hill added an amp of calcium gluconate. 09/26/2024 patient resting comfortably. Currently seen in telemetry . Abdominal pain tad better. On Dilaudid [id number]. Currently on NPO. Patient has PICC line and is currently receiving PPN. Will decrease rate to 50 mL/h. Replace electrolytes. DC IV fluids. Will monitor her renal function and liver enzymes closely. Lipase , triglycerides improving. Patient has severe hypertriglyceridemia. On the Lipitor, fenofibrate. Regarding her blood pressure much better currently. Continue with present management. Per Dr. Hill request MRI was ordered. MRI showed necrotizing pancreatitis. Spoke to Dr. Hill. Will start transfer to higher level of care-necrotizing pancreatitis. Dr. Hill spoke to [facility] and Dr. Keith agreed for transfer. Pending bed availability. Appreciate his help. Plan of care discussed with the daughter.
[2024-09-26 06:44] LABS: Hemoglobin 8.6 g/dL (12.0-16.0)
[2024-09-26] MEDS: PROMETHAZINE HCL 25 MG TABLET PO ×3 (07:13→21:44)
--- NOTE | 2024-09-26 08:56 | XR_ITS ---
Examination: CT abdomen with intravenous contrast CT pelvis with intravenous contrast 2-D coronal reconstructions 2-D sagittal reconstructions Date and time of exam:September 26, 2024 1253 hours Comparison September 20, 2024 INDICATIONS: Severe abdominal pain elevated lipase, severe acute pancreatitis on CT abdomen pelvis September 20, 2024. CTDI: vol (mGy) 11.9 DLP: (mGycm) 676 Technique: Multiple axial sections of the abdomen and pelvis have been obtained. 64 slice high-resolution scanner used. 3 mm axial sections have been obtained, post intravenous injection 60 cc [id number] 2-D sagittal, coronal reconstructions obtained. Low dose protocols were performed. One or more of the following dose reduction techniques were used; automated exposure control, adjustment of the mA and/or KV according to patient size, use of iterative reconstruction technique. Findings: Pneumonia right base with small right pleural effusion Fatty infiltration throughout the liver Severe acute pancreatitis Massive edema surrounding the pancreas extending into the abdomen increased compared to the prior study, with significant necrosis of the pancreas No pseudocyst at this time No hydronephrosis Aorta normal size No bowel obstruction 5 cm left adnexal cyst Intact urinary bladder IMPRESSION: Severe acute pancreatitis with worsening edema surrounding the pancreas extending into the abdomen Significant necrosis of the pancreas
[2024-09-26 09:53] LABS: Alanine Aminotransferase 24 U/L (10-49); Albumin, Serum 3.4 gm/dL (3.5-5.0); Albumin/Globulin Ratio 1.4 (1.2-2.2); Alkaline Phosphatase 108 U/L (46-116); Anion Gap 9 (7-16); Aspartate Amino Transferase 41 U/L (0-34); BUN/Creatinine Ratio 20 Ratio (12-20); Bilirubin,Total 0.5 mg/dL (0.3-1.2); Blood Urea Nitrogen 12 mg/dL (9-23); Calcium 8.6 mg/dL (8.3-10.6); Calcium (Corrected) 9.1 mg/dL (8.5-10.1); Carbon Dioxide 27.7 mMol/L (20.0-31.0); Chloride 99 mMol/L (98-107); Creatinine (Component) 0.6 mg/dL (0.6-1.3); Estimated Creatinine Clearance 124.4 mL/min (>60); Globulin 2.5 gm/dL (2.3-3.5); Glucose 164 mg/dL (74-106); Lipase 27 U/L (12-53); Magnesium 1.6 mg/dL (1.6-2.6); Osmolality,Calculated 275 (275-295); Phosphorous 2.7 mg/dL (2.4-5.1); Potassium 3.7 mMol/L (3.4-5.1); Sodium 136 mMol/L (136-145); Total Protein 5.9 gm/dL (5.7-8.2); eGFR > 60 See Note
[2024-09-26] MEDS: HEPARIN SOD INJ 5000 UNIT/ML VIAL SC ×2 (10:26→21:31)
[2024-09-26] MEDS: FENOFIBRATE 145 MG TABLET (NON-FORMULARY) PO (10:26)
[2024-09-26] MEDS: SENNA/DOCUSATE SOD 1 TAB TABLET PO (10:27)
[2024-09-26] MEDS: METOPROLOL SUCCINATE XL 25 MG TABCR PO (10:27)
--- NOTE | 2024-09-26 10:53 | PC.SS ---
SS follow up note; Patient is pending MRI, Patient might possibly need a transfer, per Dr. Gómez's notes.
[2024-09-26 11:25] LABS: Glucose Estimated Average 157 mg/dL (80-131); Hemoglobin A1C 7.1 % Hgb (4.8-6.0)
[2024-09-26] MEDS: DIAZEPAM 2 MG TABLET PO (11:52)
[2024-09-26] MEDS: HYDROmorphone INJ 2 MG/ML VIAL 1 MG IVP (11:52)
--- NOTE | 2024-09-26 15:00 | PC.CC ---
Addendum entered by Davie Saba RN 09/26/24 18:00: Tomy stated Dr. Sae[facility] accepted pt, however needs ins auth. Called [facility], spoke to [facility] and was directed to provide our hospital auth. Tone CASTILLO called back and confirmed providing our hospital auth was correct. Her direct line is [phone]. Peer to peer between Dr. Branch (hospitalist) and Dr. Newman was completed. Per Dr. Branch, declining patient as they would do the same interventions that our hospital providers have provided. Dr Branch recommended Dr. Newman clarify the plan of care with Dr. Joyner and be specific on what the patient needs. Called Dr. Newman back after peer to peer was completed, left to return my call. Original Note: received transfer request for GI for severe necrotizing pancreatitis. Clinicals sent to [facility]. Transfer request initiated with Tomy cruz/ ERVIN TC. She will review and call me back.
[2024-09-26] MEDS: MORPHINE SULF INJ 10 MG/ML VIAL 4 MG IVP (15:19)
--- NOTE | 2024-09-26 17:03 | PD.IMPROG ---
Documentation for date of: 09/26/24 Subjective Subjective Interval history: Patient evaluated MRI scan with and without contrast has confirmed the patient has pancreatic necrosis WBC count 12.2 CO2 of 27.7 BUN/creatinine 12 and 0.6 Calcium 8.6 Exam Vital Signs Temp Pulse Resp BP Pulse Ox O2 Del Method 97.9 F 82 14 140/83 H 96 Room Air 09/26/24 12:00 09/26/24 12:00 09/26/24 12:00 09/26/24 12:00 09/26/24 12:00 09/26/24 12:00 Objective Labs 09/26/24 04:50 09/26/24 08:57 Labs: Laboratory Results - last 24 hr 09/26/24 09/26/24 04:50 08:57 WBC 12.2 H RBC 3.46 L Hgb 8.6 L Hct 28.6 L MCV 83 MCH 24.9 L MCHC 30.1 L RDW Std Deviation 49.0 H Plt Count 279 D Neut % (Auto) 72 Lymph % (Auto) 9 L [place] % (Auto) 11 Eos % (Auto) 2 Baso % (Auto) 1 Neut # (Auto) 8.8 H Lymph # (Auto) 1.2 [place] # (Auto) 1.4 H Eos # (Auto) 0.3 Baso # (Auto) 0.1 Immature Gran # (Auto) 0.62 H Absolute Nucleated RBC 0.07 H Immature Gran % 5 H Nucleated RBC % 1 H Sodium Cancelled 136 Potassium Cancelled 3.7 Chloride Cancelled 99 Carbon Dioxide Cancelled 27.7 Anion Gap Cancelled 9 BUN Cancelled 12 Creatinine Cancelled 0.6 Estim Creat Clear Calc Cancelled 124.4 eGFR Cancelled > 60 BUN/Creatinine Ratio Cancelled 20 Glucose Cancelled [address] Glu mg/dL 157 H Hemoglobin A1c 7.1 H Calculated Osmolality Cancelled 275 Calcium Cancelled 8.6 Corrected Calcium Cancelled 9.1 Phosphorus Cancelled 2.7 Magnesium Cancelled 1.6 Total Bilirubin Cancelled 0.5 AST Cancelled 41 H ALT Cancelled 24 Alkaline Phosphatase Cancelled 108 Total Protein Cancelled 5.9 Albumin Cancelled 3.4 L Globulin Cancelled 2.5 Albumin/Globulin Ratio Cancelled 1.4 Lipase Cancelled 27 Impressions Impression: Pancreatic necrosis on latest imaging studies I will call my contrast at [facility] and see if the patient can be transferred there for further evaluation and management ABG Interpretation ABG results: 09/20/24 09/21/24 08:13 12:54 ABG pH 7.33 L ABG pCO2 38 ABG pO2 50 L* ABG HCO3 20 ABG O2 Saturation 86 L ABG Base Excess -5 L VBG pH 7.52 VBG pCO2 25 L D VBG pO2 144 H D VBG Base Excess -1 Assessment & Plan A&P Narrative # Acute pancreatitis hyperglycemia induced with severe peripancreatic edema as well as possible acute necrosis although her bicarb level is improving and white count has mildly gone up to 14.2 most likely because of the inflammatory response Suggestions n.p.o. at repeat CBC CMP amylase lipase tomorrow morning MRI of the pancreas/abdomen tomorrow morning To further define if there is a true necrosis Patient is critically sick with a high mortality morbidity If the patient continues to improve I will keep her here if she starts deteriorating will transfer the patient to a tertiary center for further evaluation and management Aggressive management of the Acidemia with atorvastatin 80 mg p.o. as well as fenofibrate 145 mg p.o. dietary consult for hypertriglyceridemia Thank you very much for the opportunity to participate Time Spent With Patient Time: Total time spent is greater than 50% in coordination of care (as documented) at patient's floor/unit and/or counseling patient:
[2024-09-26] MEDS: MULTIVITAMIN IV (17:31)
[2024-09-26] MEDS: THIAMINE IV (17:31)
[2024-09-26] MEDS: MAGNESIUM SULF IV (17:31)
[2024-09-26] MEDS: [UNRECOGNIZED DRUG - OTHER] IV (17:31)
[2024-09-26] MEDS: ATORVASTATIN CALCIUM 20 MG TABLET 80 MG PO (21:28)
[2024-09-27] VITALS: BP 128/70; PULSE 85; RESP 19; TEMP 36.6; O2SAT 98
[2024-09-27] MEDS: HYDROmorphone INJ 2 MG/ML VIAL IVP ×5 (01:08→14:43)
[2024-09-27] MEDS: ONDANSETRON INJ 2 MG/ML INJ 2 ML 4 MG IVP ×3 (01:08→14:43)
--- NOTE | 2024-09-27 01:51 | PC.NURSE ---
made Dr. Mehta aware patient was accepted to [facility] . patient is pending bed availability. notified MD of patient needing discharge summary. Per MD one is already done.
--- NOTE | 2024-09-27 01:53 | PC.NURSE ---
@ approximately [address] Hill of patient being transferred and accepted by [facility], accepting Dr. Clark Levy. Dr. hill requested to speak to family member at bedside to update POC. This RN notified charge nuse and house fellow of new information. @ approximately 2100 called transfer center spoke to Braden regarding patient transfer. paperwork faxed to transfer center @approximately 2200 transfer center notified this group underwriter of patient acceptance by Dr. Levy provided this group underwriter with phone number to contact bed control. @approximately 0140 [facility] surgery nurse contacted , per RN patient is accepted pending bed availability. - specified that there should be discharge summary included. notified
[2024-09-27 04:00] VITALS: BP 152/77; PULSE 82; PULSE 85; RESP 20; TEMP 37.1; O2SAT 97
[2024-09-27] MEDS: PROMETHAZINE HCL 25 MG TABLET PO ×2 (05:35→11:30)
[2024-09-27 06:31] LABS: Basophils # (Auto) 0.1 Thou/mm3 (0.0-0.2); Basophils % (Auto) 0 % (0-2.5); Eosinophils # (Auto) 0.3 Thou/mm3 (0.0-0.5); Eosinophils % (Auto) 2 % (0-10); Hematocrit 24.2 % (36.0-46.0); Immature Granulocytes Auto 0.74 Thou/mm3 (0.00-0.00); Lymphocytes # (Auto) 1.5 Thou/mm3 (1.0-4.8); Lymphocytes % (Auto) 9 % (10-50); Mean Corpuscular HGB Conc 29.8 g/dl (31.0-37.0); Mean Corpuscular Hemoglobin 24.6 pg (25.0-35.0); Mean Corpuscular Volume 83 fL (80-100); Monocytes # (Auto) 1.3 Thou/mm3 (0.0-0.8); Monocytes % (Auto) 8 % (0-12); Neutrophils # (Auto) 12.3 Thou/mm3 (1.8-7.7); Neutrophils % (Auto) 76 % (37-80); Nucleated Red Blood Cell # 0.05 Thou/mm3 (0.00-0.00); Nucleated Red Blood Cell % 0 /100 WBC (0); Platelet Count 337 Thou/mm3 (140-440); RDW Standard Deviation 49.6 fL (36.4-46.3); Red Blood Count 2.93 Miln/mm3 (4.00-5.20); White Blood Count 16.2 Thou/mm3 (3.6-11.0)
[2024-09-27 06:52] LABS: Hemoglobin 7.2 g/dL (12.0-16.0)
--- NOTE | 2024-09-27 07:21 | PC.CC ---
Addendum entered by Palak Zimmer RN 09/27/24 11:43: 1003- patient accepted to [facility] by Heather Rizo by Dr. Levy, pt i to go to [facility], floor 8 west, room 8347 bed b 11:00- Chart printed, packet made, signatures obtained, packet given to streetcar starter Mandy, EMS set up pickle solution maker for 1330, [facility] aware Addendum entered by Palak Zimmer RN 09/27/24 07:56: CD being made at this time Addendum entered by Palak Zimmer RN 09/27/24 07:41: DC summary faxed to [facility], spoke to Nano and informed her patient is not on isolation and agrees to semi private room. Original Note: Spoke to Nano at [facility] who was given updated clinicals, she states they have a semi private room available, if patient is agreeable to semi private room and a dc summary is faxed as soon as possible patient is able to get room. Spoke to patient nurse who is going to speak with patient. Spoke with Dr. Newman about DC summary she states she will have her team dictate it as soon as possible.
--- NOTE | 2024-09-27 07:22 | PD.RESDS ---
Planned Discharge Date 09/27/24 DS: Providers Provider Date of admission: 09/20/24 11:38 Primary care physician: Stevie Newman MD Admitting Provider: Stevie Newman MD Attending Provider on Admission: Stevie Newman MD Consults: 09/20/24 15:28 Consult to Gastroenterology Stat Comment: necrotizing pancreatitis Consulting Provider: Vinny Joyner 09/21/24 09:58 Referral Registered Dietitian Urgent Comment: ppn needed, triglycerides are high 09/26/24 14:14 Referral - Logistics Technician Stat Service Needed for Transfer: Gastroenterology Addl Comments:: pt with severe necrotizing pancreatitis. lipase downtrending now wnl, MRI today with severe necrosis of pancreas. pt has hx of several episodes of pancreatitis. requiring transfer for managment of severe necrotizing pancreatitis. Attending Provider on DC: Wally Dexter, RESIDENT Discharging Provider: Dr. Trent MD DS: Diagnosis Problem List Completed Was Problem List Reviewed/Reconciled?: Yes Hospital Course Hospital Course Hospital course: Summary: Gem Chapin is a 49-year-old F with a past medical history of familial hypertriglyceridemia, hypertension, and recurrent pancreatitis who was admitted on 09/20/2024 with a chief complaint of abdominal pain. ER: Patient presented to the ED and was seen by ED provider at 07:41 on 09/20/2024 for their presentation of abdominal pain with nausea and vomiting. At the time, labs were remarkable for BP 207/114, WBC 14.2, CO2 17.7, phosphorus 1.8, magnesium 1.5, LDH 265, CRP 1.7, triglycerides 3921, cholesterol 572, amylase 1202, and lipase 2076. CTAP showed severe acute pancreatitis with extensive edema and fluid surrounding the pancreas that extended into the abdomen and extensive necrosis involving the pancreas itself. Gallbladder ultrasound showed an enlarged common bile duct 0.8 cm in diameter and an 11 mm left lobe liver lesion. Patient was given acetaminophen, Dilaudid, Toradol, morphine, Zofran, Compazine, Phenergan, 1 L NS maintenance. GI was consulted and patient was admitted by the IM team for work-up and management of acute necrotizing pancreatitis. Hospital: During patient's hospital course, the main medical diagnoses addressed were acute necrotizing pancreatitis. She underwent MRCP, no stones, no dilated common bile duct, PPN was initiated, patient kept NPO, requiring [id number] pain management. Repeat CTAP showed ongoing severe necrosis of the pancreas. MRI also showed as such. Lipase downtrended to WNL, patient started on atorvastatin and fenofibrate with decrease in triglycerides from 3900 to 500. Her WBC is uptrending from 7 to 16. She is afebrile. Patient is going to be transferred to [facility] for higher level of care. Further discharge instructions below. #Acute necrotizing pancreatitis #Familial hypertriglyceridemia #Hypertension #New onset T2DM Status at Discharge Cognitive/Behavioral Status at Discharge: stable Functional Status at Discharge: independent ambulation Overall Status at Discharge: not at baseline Total Time Spent Providing and/or Coordinating Discharge Services: greater than 30 minutes of care and coordination Wally Dexter DO Internal Medicine, PGY-1 Time Spent with Patient Time attestation: Total time spent providing and/or coordinating discharge services: Time spent: Greater than 30 minutes Exam Vital Signs Temp Pulse Resp BP Pulse Ox O2 Del Method 98.7 F 85 20 152/77 H 97 Room Air 09/27/24 04:00 09/27/24 04:00 09/27/24 04:00 09/27/24 04:00 09/27/24 04:00 09/27/24 04:00 Narrative Exam GENERAL: Slightly somnolent. Patient in no acute distress, A&O x3, sitting upright in bed HEENT: Head AT/ NC. PERRL. CARDIOVASCULAR: trace edema of bilateral LE. tachycardic, regular rhythm. Normal S1/S2, +systolic murmur. RESPIRATORY: CTAB. No wheezing, rhonchi, crackles. GASTROINTESTINAL: Abdomen soft, mildly tender to palpation in the epigastrum no palpable masses. Bowel sounds hypoactive. MUSCULOSKELETAL:? No cyanosis, no visible joint swelling. NEUROLOGICAL: CN II-XII grossly intact. No focal deficits. Sensation intact, symmetric. SKIN: pale skin. Discharge Plan Plan Patient Disposition: Xfer Other Facility Pt Being Transferred to: [facility] Service Needed for Transfer: Gastroenterology Patient condition on transfer: Stable Prescriptions/Referrals Prescriptions/Med Rec: New metoprolol succinate 25 mg Tablet Extended Release 24 Hr 25 mg PO QDAY Qty: 1 0RF fenofibrate nanocrystallized 145 mg Tablet 145 mg PO QDAY Qty: 1 0RF Continued atorvastatin 80 mg tablet 80 mg PO HS Discontinued gemfibrozil 600 mg tablet 600 mg PO BID Qty: 0 0RF atorvastatin 20 mg Tablet 80 mg PO HS Qty: 30 0RF carvedilol 3.125 mg Tablet 3.125 mg PO BID Qty: 60 0RF losartan-hydrochlorothiazide 100-25 mg tablet 1 tab PO QDAY Referrals: Stevie Newman MD [Primary Care Provider] - Patient/Caregiver Discharge Instructions Discharge Activity: activity as tolerated Education Materials: ED Pancreatitis Print Language: Bulgarian Activity Restrictions/Additional Instructions: Insulin sliding scale PPN Stand Alone Forms: Karen Award Info., Patient Portal Info Letter Discharge Order Discharge Orders: Discharge (Routine); Ordered 09/27/24 Ordered By: Stevie Newman Quality Discharge Quality Measures VTE prophylaxis MD Attestestation MD Attestation Patient seen and examined with resident physician Dr. Dexter. Note reviewed, agree with findings and recommendations. Patient admitted with acute abdominal pain and noted to have necrotizing pancreatitis. Abdominal pain better with medications. She still has nausea and vomiting. Currently on NPO. PPN was initiated. Appreciate Dr. Joyner recommendations. Bicarb significantly low at less than 10. [place].ABG showing pH 7.33, QYD426, PO250, HCO3 20. Creatinine elevated at 2.2. Potassium artificially was elevated at 6.1 and repeat was 4.8. Patient was given an amp of bicarb and a bicarb drip was started. Noted Dr. Joyner added an amp of calcium gluconate. 09/27/2024 patient resting comfortably. Currently seen in telemetry . Abdominal pain tad better. On Dilaudid [id number]. Currently on NPO. Patient has PICC line and is currently receiving PPN. Will decrease rate to 50 mL/h. Replace electrolytes. DC IV fluids. Will monitor her renal function and liver enzymes closely. Lipase , triglycerides improving. Patient has severe hypertriglyceridemia. On the Lipitor, fenofibrate. Regarding her blood pressure much better currently. Continue with present management. ISS, PPN. Per Dr. Joyner request MRI was ordered. MRI showed necrotizing pancreatitis. Spoke to Dr. Joyner. Will transfer to higher level of care-necrotizing pancreatitis. risk of sepsis, pseudocyst. Dr. Joyner spoke to [facility] and Dr. Keith agreed for transfer. Appreciate his help. Plan of care discussed with the daughter at bedside.
[2024-09-27 08:00] VITALS: BP 127/73; PULSE 76; PULSE 85; RESP 19; TEMP 36.2; O2SAT 95
[2024-09-27 08:34] VITALS: BP 127/73; PULSE 85
[2024-09-27] MEDS: FENOFIBRATE 145 MG TABLET (NON-FORMULARY) PO (08:34)
[2024-09-27] MEDS: SENNA/DOCUSATE SOD 1 TAB TABLET PO (08:34)
[2024-09-27] MEDS: METOPROLOL SUCCINATE XL 25 MG TABCR PO (08:34)
[2024-09-27] MEDS: HEPARIN SOD INJ 5000 UNIT/ML VIAL SC (08:34)
[2024-09-27 09:33] LABS: Alanine Aminotransferase 27 U/L (10-49); Albumin, Serum 3.5 gm/dL (3.5-5.0); Albumin/Globulin Ratio 1.5 (1.2-2.2); Alkaline Phosphatase 108 U/L (46-116); Anion Gap 10 (7-16); Aspartate Amino Transferase 38 U/L (0-34); BUN/Creatinine Ratio 23 Ratio (12-20); Bilirubin,Total 0.5 mg/dL (0.3-1.2); Blood Urea Nitrogen 14 mg/dL (9-23); Calcium 8.7 mg/dL (8.3-10.6); Calcium (Corrected) 9.1 mg/dL (8.5-10.1); Carbon Dioxide 28.3 mMol/L (20.0-31.0); Chloride 98 mMol/L (98-107); Creatinine (Component) 0.6 mg/dL (0.6-1.3); Estimated Creatinine Clearance 124.4 mL/min (>60); Globulin 2.3 gm/dL (2.3-3.5); Glucose 156 mg/dL (74-106); Magnesium 1.6 mg/dL (1.6-2.6); Osmolality,Calculated 275 (275-295); Phosphorous 3.2 mg/dL (2.4-5.1); Potassium 3.8 mMol/L (3.4-5.1); Sodium 136 mMol/L (136-145); Total Protein 5.8 gm/dL (5.7-8.2); eGFR > 60 See Note
[2024-09-27 12:00] VITALS: BP 158/79; PULSE 79; PULSE 83; RESP 20; TEMP 36.8; O2SAT 95
--- NOTE | 2024-09-27 16:23 | PC.NURSE ---
Report was given to [facility] Jane RN at 0925 for transfer of care. PT was picked by ambulance for transfer at 1513. Transfer RN and receiving RN updated with status and ETA. Both verbalized understanding with further questions or concerns at this time.
--- NOTE | 2024-09-27 16:32 | PC.LAC ---
PT transferred with PICC line in right upper arm for higher level of care. Receiving RN Jane garcia.
--- NOTE | 2024-09-27 20:35 | PD.IMPROG ---
Documentation for date of: 09/27/24 Subjective Subjective Interval history: Late entry for the note Bed became available at [facility] Case discussed with attending physician Exam Vital Signs Temp Pulse Resp BP Pulse Ox O2 Del Method 98.3 F 79 20 158/79 H 95 Room Air 09/27/24 12:00 09/27/24 12:00 09/27/24 12:00 09/27/24 12:00 09/27/24 12:00 09/27/24 12:00 Objective Labs 09/27/24 05:26 09/27/24 08:01 Labs: Laboratory Results - last 24 hr 09/27/24 09/27/24 05:26 08:01 WBC 16.2 H RBC 2.93 L Hgb 7.2 L Hct 24.2 L MCV 83 MCH 24.6 L MCHC 29.8 L RDW Std Deviation 49.6 H Plt Count 337 D Neut % (Auto) 76 Lymph % (Auto) 9 L [place] % (Auto) 8 Eos % (Auto) 2 Baso % (Auto) 0 Neut # (Auto) 12.3 H Lymph # (Auto) 1.5 [place] # (Auto) 1.3 H Eos # (Auto) 0.3 Baso # (Auto) 0.1 Immature Gran # (Auto) 0.74 H Absolute Nucleated RBC 0.05 H Immature Gran % 5 H Nucleated RBC % 0 Sodium 136 Potassium 3.8 Chloride 98 Carbon Dioxide 28.3 Anion Gap 10 BUN 14 Creatinine 0.6 Estim Creat Clear Calc 124.4 eGFR > 60 BUN/Creatinine Ratio 23 H Glucose 156 H Calculated Osmolality 275 Calcium 8.7 Corrected Calcium 9.1 Phosphorus 3.2 Magnesium 1.6 Total Bilirubin 0.5 AST 38 H ALT 27 Alkaline Phosphatase 108 Total Protein 5.8 Albumin 3.5 Globulin 2.3 Albumin/Globulin Ratio 1.5 Impressions Impression: Acute necrotizing pancreatitis secondary to hypertriglyceridemia Transfer the patient to [facility] under the care of Dr. Levy ABG Interpretation ABG results: 09/20/24 09/21/24 08:13 12:54 ABG pH 7.33 L ABG pCO2 38 ABG pO2 50 L* ABG HCO3 20 ABG O2 Saturation 86 L ABG Base Excess -5 L VBG pH 7.52 VBG pCO2 25 L D VBG pO2 144 H D VBG Base Excess -1 Assessment & Plan A&P Narrative # Acute pancreatitis hyperglycemia induced with severe peripancreatic edema as well as possible acute necrosis although her bicarb level is improving and white count has mildly gone up to 14.2 most likely because of the inflammatory response Suggestions n.p.o. at repeat CBC CMP amylase lipase tomorrow morning MRI of the pancreas/abdomen tomorrow morning To further define if there is a true necrosis Patient is critically sick with a high mortality morbidity If the patient continues to improve I will keep her here if she starts deteriorating will transfer the patient to a tertiary center for further evaluation and management Aggressive management of the Acidemia with atorvastatin 80 mg p.o. as well as fenofibrate 145 mg p.o. dietary consult for hypertriglyceridemia Thank you very much for the opportunity to participate Time Spent With Patient Time: Total time spent is greater than 50% in coordination of care (as documented) at patient's floor/unit and/or counseling patient:
== END 2024-09-27 15:13 | disposition short-term general hospital (02) | DRG 439 ==
LOC: SERX 11:35 → SERHOLD 12:02 → S3NX 14:10 → S2NX 09-21 17:08
PROVIDERS: Admitting Provider Internal Medicine; Emergency Provider Family Medicine; PCP Internal Medicine; Visit Provider Internal Medicine
DX: K85.91 Acute pancreatitis with uninfected necrosis, unspecified (principal); E87.20 Acidosis, unspecified; I16.1 Hypertensive emergency; I10 Essential (primary) hypertension; K75.81 Nonalcoholic steatohepatitis (NASH); R16.0 Hepatomegaly, not elsewhere classified; E78.1 Pure hyperglyceridemia; E11.65 Type 2 diabetes mellitus with hyperglycemia; E83.51 Hypocalcemia; E87.5 Hyperkalemia; F40.240 Claustrophobia; K86.1 Other chronic pancreatitis; K83.8 Other specified diseases of biliary tract
CPT/HCPCS: 36415; 36600; 71045; 74177; 74181; 74183; 76705; 80053; 80061; 80069; 81001; 81025; 82105; 82150; 82378; 82803; 83036; 83605; 83615; 83690; 83735; 84100; 84132; 84145; 85025; 86140; 87086; 93005; 93225; 96361; 96365; 96366; 96375; 96376; 99284; A4649; A9577; C1894; J0131; J0360; J0612; J0780; J1171; J1200; J1642; J1644; J1885; J1938; J2270; J2405; J2470; J2550; J3411; J3475; J3480; J3490; J7030; J7050; J7060; J7120; J7999; Q9967; A9270

== ENCOUNTER → 2024-11-04 | Outpatient (CLI) | payer BC, SELFPAY ==
[2024-10-26 13:18] LABS: HCG Qualitative,Urine Negative
[2024-11-03 17:13] LABS: HCG Qualitative,Urine Negative
--- NOTE | 2024-11-04 11:00 | XR_ITS ---
Examination: CT abdomen with intravenous contrast CT pelvis with intravenous contrast 2-D coronal reconstructions 2-D sagittal reconstructions Date and time of exam:November 04, 2024, 1259 hours, comparison September 26, 2024 INDICATIONS: Severe abdominal pain this month, severe acute pancreatitis on CT study September 26, 2024. CTDI: vol (mGy) 10.1 DLP: (mGycm) 587 Technique: Multiple axial sections of the abdomen and pelvis have been obtained. 64 slice high-resolution scanner used. 3 mm axial sections have been obtained, post intravenous injection 60 cc [id number] 2-D sagittal, coronal reconstructions obtained. Low dose protocols were performed. One or more of the following dose reduction techniques were used; automated exposure control, adjustment of the mA and/or KV according to patient size, use of iterative reconstruction technique. Findings: Fatty infiltration throughout the liver, liver is irregular in contour Spleen not enlarged Gastric mucosa prominently thickened Mild edema about the pancreas Mild free fluid in the abdomen Aorta normal size No bowel obstruction Appendix not visualized Retroverted uterus with intrauterine device satisfactory position Bladder intact IMPRESSION: Acute pancreatitis, no pseudocyst noted at this time Gastritis pattern
== END | disposition home or self-care (01) ==
LOC: CCTX 10-27 13:01 → SCAT 10:54
PROVIDERS: PCP Internal Medicine; Referring Provider Internal Medicine; Visit Provider Internal Medicine
DX: K85.90 Acute pancreatitis without necrosis or infection, unspecified (principal); Z32.00 Encounter for pregnancy test, result unknown
CPT/HCPCS: 74177; 81025; A4649; Q9967